=== PATIENT | female | born 1950 | race Caucasian/White ===

== ENCOUNTER 2018-06-01 07:51 | Emergency (ER) | payer OTHER ==
[2018-06-01] MEDS ORDERED: LEVALBUTEROL 1.25 MG/3 ML NEB ONE (08:35)
[2018-06-01] MEDS ORDERED: IPRATROPIUM BROM 0.5MG/2.5ML ONE (08:35)
[2018-06-01] MEDS ORDERED: METHYLPREDNISOLONE 125 MG INJ ONE (08:35)
--- NOTE | 2018-06-01 09:30 | RAD REPORT ---
EXAM DESCRIPTION: RAD - Chest Pa And Lat (2 Views) - 06/01/2018 9:10 am CLINICAL HISTORY: Cough and congestion COMPARISON: July 2010 TECHNIQUE: PA and lateral views of the chest were obtained. FINDINGS: The lungs are clear of a focal infiltrate, mass or failure finding. Interstitial markings are prominent and increased from 2011. Interval changes mild. This is probably a progressive fibrosis rather than a superimposed interstitial edema or infiltrate. Heart size is normal and central vasculature is within normal limits. No pleural effusion or pneumot horax seen. No acute bony finding noted. No aortic abnormality. IMPRESSION: No focal mass, consolidation or failure. Prominent interstitial pattern increased slightly from comparison. Progression since 2010 is favored to be progression in fibrosis rather than interstitial edema or infiltrate.
--- NOTE | 2018-06-01 09:43 | ER ---
Nurse's Notes [facility] Name: Porfirio Headley Age: 68 yrs Sex: Female : 1950 Arrival Date: 06/01/2018 Time: 07:56 Bed 19 Private MD: Tanner Gonzalez V Diagnosis: Acute sinusitis;Acute upper respiratory infection, unspecified Presentation: 06/01 08:16 Presenting complaint: Patient states: was diagnosed with a sinus infection on Sunday by iw Dr. Gonzalez, was started on Levaquin, has not been getting any better, now has cough, sneezing, nausea, right ear pain, headache. Transition of care: patient was not received from another setting of care. Onset of symptoms was May 27, 2018. Risk Assessment: Do you want to hurt yourself or someone else? Patient reports no desire to harm self or others. Initial Sepsis Screen: Does the patient meet any 2 criteria? No. Patient's initial sepsis screen is negative. Does the patient have a suspected source of infection? No. Patient's initial sepsis screen is negative. Care prior to arrival: None. 08:16 Method Of Arrival: Ambulatory 08:16 Acuity: NATA 3 iw Historical: - Allergies: 08:19 Cleocin; iw 08:19 Codeine; iw 08:19 PENICILLINS; iw - PMHx: 08:19 Fibromyalgia; Hypothyroidism; lymes disease; iw - PSHx: 08:19 Appendectomy; rhinoplasty; partial hysterectomy; left shoulder; Carpal Tunnel Repair; iw diskectomy; right shoulder; Ear Tubes; - Ebola Screening: : Patient negative for fever greater than or equal to 101.5 degrees Fahrenheit, and additional compatible Ebola Virus Disease symptoms Patient denies exposure to infectious person Patient denies travel to an Ebola-affected area in the 21 days before illness onset No symptoms or risks identified at this time. Screenin:38 Abuse screen: Denies threats or abuse. Nutritional screening: No deficits noted. la1 Tuberculosis screening: No symptoms or risk factors identified. Fall Risk None identified. Assessment: 08:38 General: Appears in no apparent distress. Behavior is calm, cooperative. Pain: Denies la1 pain. Neuro: Level of Consciousness is awake, alert, obeys commands, Oriented to person, place, time, situation, Professor Of Physical Education are equal bilaterally. Cardiovascular: Capillary refill < 3 seconds Patient's skin is warm and dry. Respiratory: Airway is patent Respiratory effort is even, unlabored, Respiratory pattern is regular, symmetrical, Breath sounds are clear bilaterally. GI: No signs and/or symptoms were reported involving the gastrointestinal system. : No signs and/or symptoms were reported regarding the genitourinary system. 08:38 Respiratory: Reports cough that is productive. la1 09:59 Reassessment: Patient appears in no apparent distress at this time. No changes from la1 previously documented assessment. Patient and/or family updated on plan of care and expected duration. Pain level reassessed. Patient is alert, oriented x 3, equal unlabored respirations, skin warm/dry/pink. Vital Signs: 08:19 BP 178 / 79; Pulse 83; Resp 16; Temp 98.1(TE); Pulse Ox 98% on R/A; Weight 88 kg; iw Height 5 ft. 6 in. (167.64 cm); Pain 7/10; 09:59 BP 156 / 74; Pulse 81; Resp 16; Temp 97.3; Pulse Ox 98% on R/A; la1 08:19 Body Mass Index 31.31 (88.00 kg, 167.64 cm) iw ED Course: 07:56 Patient arrived in ED. mr 07:56 Tanner Gonzalez MD is Private Physician. mr 08:06 French Gonzalez, MICKIE is Primary Nurse. la1 08:07 Charissa Bravo FNP-C [facility]. kb 08:07 Chaka Al MD is Attending Physician. kb 08:18 Triage completed. iw 08:19 Arm band placed on. iw 08:38 Bed in low position. Call light in reach. Side rails up X 1. la1 09:10 Chest Pa And Lat (2 Views) XRAY In Process Unspecified. EDMS 09:42 Tanner Gonzalez MD is Referral Physician. kb 10:00 No provider procedures requiring assistance completed. Patient did not have IV access la1 during this emergency room visit. Administered Medications: 08:38 Drug: Xopenex (3) 1.25 mg Route: Inhalation; la1 09:36 Follow up: Response: No adverse reaction la1 08:38 Drug: AtroVENT Aerosol 0.5 mg Route: Inhalation; la1 09:36 Follow up: Response: No adverse reaction la1 08:38 Drug: SOLU-Medrol 125 mg Route: IM; Site: right gluteus; la1 09:36 Follow up: Response: No adverse reaction la1 Outcome: 09:42 Discharge ordered by MD. [place] 10:00 Discharged to home ambulatory. la1 10:00 Condition: stable 10:00 Discharge instructions given to patient, Instructed on discharge instructions, follow up and referral plans. medication usage, Demonstrated understanding of instructions, follow-up care, medications. 10:00 Patient left the ED. la1 Signatures: Dispatcher [employer] EDMS Charissa Bravo, CALL CENTER SUPPORT REPRESENTATIVE-C CALL CENTER SUPPORT REPRESENTATIVE-Chandrika Valencia Irene, RN RN French David RN RN la1
--- NOTE | 2018-06-01 09:43 | EDPHYS ---
Physician Documentation [facility] Name: Porfirio Headley Age: 68 yrs Sex: Female : 1950 Arrival Date: 06/01/2018 Time: 07:56 Bed 19 Private MD: Tanner Gonzalez V ED Physician Chaka Al HPI: 06/01 08:23 This 68 yrs old Female presents to ER via Ambulatory with complaints of Sinus kb Congestion. 08:23 The patient or guardian reports cough, that is intermittent, described as moderate, kb with no sputum. Onset: The symptoms/episode began/occurred 6 day(s) ago. Severity of symptoms: At their worst the symptoms were moderate, in the emergency department the symptoms are unchanged. Modifying factors: The symptoms are alleviated by nothing, the symptoms are aggravated by nothing. Associated signs and symptoms: Pertinent positives: nausea, sinus headache, drainage from right ear. The patient has experienced similar episodes in the past, a few times. The patient has been recently seen by a physician: the patient's primary care provider, Dr. Gonzalez in the office, 6 day(s) ago, with similar presenting complaints, and apparently given a diagnosis of sinus infection, was given a prescription for antibiotics. Historical: - Allergies: 08:19 Cleocin; iw 08:19 Codeine; iw 08:19 PENICILLINS; iw - PMHx: 08:19 Fibromyalgia; Hypothyroidism; lymes disease; iw - PSHx: 08:19 Appendectomy; rhinoplasty; partial hysterectomy; left shoulder; Carpal Tunnel Repair; iw diskectomy; right shoulder; Ear Tubes; - Ebola Screening: : Patient negative for fever greater than or equal to 101.5 degrees Fahrenheit, and additional compatible Ebola Virus Disease symptoms Patient denies exposure to infectious person Patient denies travel to an Ebola-affected area in the 21 days before illness onset No symptoms or risks identified at this time. ROS: 08:24 Cardiovascular: Negative for chest pain, palpitations, and edema, Abdomen/GI: Negative kb for abdominal pain, vomiting, diarrhea, and constipation. +nausea Back: Negative for injury and pain, MS/Extremity: Negative for injury and deformity, Skin: Negative for injury, rash, and discoloration. 08:24 Constitutional: Positive for malaise. 08:24 ENT: Positive for drainage from ear(s), ear pain, sinus congestion, sinus pain. 08:24 Respiratory: Positive for cough, Negative for dyspnea on exertion, hemoptysis, orthopnea, pleurisy, shortness of breath, sputum production, wheezing. 08:24 Neuro: Positive for headache. Exam: 08:26 Constitutional: This is a well developed, well nourished patient who is awake, alert, kb and in no acute distress. Head/Face: Normocephalic, atraumatic. ENT: Nares patent. No nasal discharge, no septal abnormalities noted. Oropharynx with no redness, swelling, or masses, exudates, or evidence of obstruction, uvula midline. Mucous membranes moist. Neck: Trachea midline, no thyromegaly or masses palpated, and no cervical lymphadenopathy. Supple, full range of motion without nuchal rigidity, or vertebral point tenderness. No Meningismus. Chest/axilla: Normal chest wall appearance and motion. Nontender with no deformity. No lesions are appreciated. Cardiovascular: Regular rate and rhythm with a normal S1 and S2. No gallops, murmurs, or rubs. Normal PMI, no JVD. No pulse deficits. Respiratory: Lungs have equal breath sounds bilaterally, clear to auscultation and percussion. No rales, rhonchi or wheezes noted. No increased work of breathing, no retractions or nasal flaring. Abdomen/GI: Soft, non-tender, with normal bowel sounds. No distension or tympany. No guarding or rebound. No evidence of tenderness throughout. Skin: Warm, dry with normal turgor. Normal color with no rashes, no lesions, and no evidence of cellulitis. MS/ Extremity: Pulses equal, no cyanosis. Neurovascular intact. Full, normal range of motion. Neuro: Awake and alert, GCS 15, oriented to person, place, time, and situation. Cranial nerves II-XII grossly intact. Motor strength 5/5 in all extremities. Sensory grossly intact. Cerebellar exam normal. Normal gait. 08:26 ENT: TM's: PE tubes visualized. PE tubes patent, intact, draining in ear canal Vital Signs: 08:19 BP 178 / 79; Pulse 83; Resp 16; Temp 98.1(TE); Pulse Ox 98% on R/A; Weight 88 kg; iw Height 5 ft. 6 in. (167.64 cm); Pain 7/10; 09:59 BP 156 / 74; Pulse 81; Resp 16; Temp 97.3; Pulse Ox 98% on R/A; la1 08:19 Body Mass Index 31.31 (88.00 kg, 167.64 cm) iw MDM: 08:07 Patient medically screened. kb 08:25 Data reviewed: vital signs, nurses notes. Data interpreted: Pulse oximetry: on room air kb is 98 %. Interpretation: normal. 09:32 Counseling: I had a detailed discussion with the patient and/or guardian regarding: the kb historical points, exam findings, and any diagnostic results supporting the discharge/admit diagnosis, lab results, radiology results, the need for outpatient follow up, a family practitioner, to return to the emergency department if symptoms worsen or persist or if there are any questions or concerns that arise at home. 06/01 08:20 Order name: Flu; Complete Time: 09:16 kb 06/01 08:20 Order name: Strep; Complete Time: 09:16 kb 06/01 08:20 Order name: Chest Pa And Lat (2 Views) XRAY; Complete Time: 09:31 kb 06/01 09:08 Order name: Throat Culture EDMS Administered Medications: 08:38 Drug: Xopenex (3) 1.25 mg Route: Inhalation; la1 09:36 Follow up: Response: No adverse reaction la1 08:38 Drug: AtroVENT Aerosol 0.5 mg Route: Inhalation; la1 09:36 Follow up: Response: No adverse reaction la1 08:38 Drug: SOLU-Medrol 125 mg Route: IM; Site: right gluteus; la1 09:36 Follow up: Response: No adverse reaction la1 Disposition: 12:27 Co-signature as Attending Physician, Chaka Al MD I agree with the assessment and kdr plan of care. Disposition: 06/01/18 09:42 Discharged to Home. Impression: Acute sinusitis, Acute upper respiratory infection, unspecified. - Condition is Stable. - Discharge Instructions: Sinusitis, Adult, [id number], Upper Respiratory Infection, Adult, [id number]. - Prescriptions for Albuterol Sulfate 90 mcg/actuation - inhale 1-2 puff by INHALATION route every 4-6 hours; 1 Inhaler. - Medication Reconciliation Form, Thank You Letter, Antibiotic Education, Prescription Opioid Use form. - Follow up: Emergency Department; When: As needed; Reason: Worsening of condition. Follow up: Tanner Gonzalez; When: 2 - 3 days; Reason: Recheck today's complaints, Continuance of care, Re-evaluation by your physician. - Notes: Take an antihistamine (zyrtec, claritin or sasha) and Flonase daily Continue antibiotics as prescribed Follow up with Dr Gonzalez next week for persistent symtpoms Signatures: Dispatcher [employer] EDMS Charissa Bravo, ERLIN KRUGER-Chaka Marin MD MD kdr Kalina Arthur RN RN iw French Gonzalez RN RN la1 Corrections: (The following items were deleted from the chart) 10:00 09:42 06/01/2018 09:42 Discharged to Home. Impression: Acute sinusitis; Acute upper la1 respiratory infection, unspecified. Condition is Stable. Discharge Instructions: Sinusitis, Adult, [id number]. Prescriptions for Albuterol Sulfate 90 mcg/actuation - inhale 1-2 puff by INHALATION route every 4-6 hours; 1 Inhaler. and Forms are Medication Reconciliation Form, Thank You Letter, Antibiotic Education, Prescription Opioid Use. Follow up: Emergency Department; When: As needed; Reason: Worsening of condition. Follow up: Tanner Gonzalez; When: 2 - 3 days; Reason: Recheck today's complaints, Continuance of care, Re-evaluation by your physician. kb
== END 2018-06-01 10:00 | disposition home or self-care (01) ==
LOC: ER 07:51
DX: J06.9 Acute upper respiratory infection, unspecified (principal); J01.90 Acute sinusitis, unspecified
CPT/HCPCS: 71046; 87070; 87081; 87804 ×2; 96372; 99284; J2930

== ENCOUNTER 2018-09-06 03:15 | Emergency (ER) | payer OTHER ==
--- OUTSIDE RECORDS SUMMARY | 2018-09-06 03:18 | XMS REPORT | Summary of Care ---
:1950 Author Organization [facility] Encounter HQ Vipinr_andree(FIN) [id number] Date(s): 09/12/16 - 09/12/16 [facility] [address] [place] [address], [address] [phone] Discharge Disposition: Home or Self Care Attending Physician: Delisa Burnham MD Vital Signs No data available for this section Problem List No data available for this section Allergies, Adverse Reactions, Alerts Substance Reaction Severity Status codeine Active penicillin Active Medications No data available for this section Results No data available for this section Immunizations No data available for this section Procedures No data available for this section Social History No data available for this section Assessment and Plan No data available for this section
--- OUTSIDE RECORDS SUMMARY | 2018-09-06 03:18 | XMS REPORT | Continuity of Care Document ---
:1950 Author Organization Interface Problems Problem Status Onset Classification Date Comments Source Date Reported FIBROMIACIA//BACK Active 11/16/19 SMR PAIN 18 [facility] [place] UNK Active 10/24/[address] Chronic back pain Active Problem 01/19/2018 SMR greater than 3 [place] months duration [facility],Mische r Neuro, OPID [place],[facility] SOB on Active Problem 01/19/2018 [facility] exertion(<span [place] ID="[id number]" [facility] >Confirmed</span> Iraheta,Mische ) r Neuro, OPID [place], [place] GERD (<span Active Problem 01/19/2018 [facility] ID="[id number]" [place] >Confirmed</span> [facility] ) [place]heta,Mische r Neuro, OPID [facility] H/O basal cell Active Problem 01/19/2018 [facility] carcinoma [place] excision [facility],Mische r Neuro, OPID [facility] Hypothyroidism Active Problem 01/19/2018 [facility],Mische r Neuro, OPID [facility] Lyme disease Resolved Problem 01/19/2018 [facility],Mische r Neuro, OPID [facility] Anxiety and Active Problem 01/19/2018 [facility] depression [facility],Mische r Neuro, OPID [facility] Obesity Active Problem 01/19/2018 [facility],Mische r Neuro,[facility] SPONDYLOSIS W/O Active MYELOPATHY OR [place] RADICULOPA RADICULOPATHY, Active LUMBAR REGION [facility] Medications Medication Details Route Status Patient Ordering Order Source Instructions Provider Date Senokot 2 tab, Route: No Longer PO, Dosing Active 2016 Weight 85.455, kg, Daily, Start date: 11/23/16 9:00:00 CDT, Duration: 30 day, Stop date: 12/22/16 9:00:00 CDT heparin sodium, 5,000 unit, No Longer porcine 2500 Route: SUB-Q, Active 2016 [facility] UNT/ML Drug form: INJ, Injectable Q12H, Dosing Solution Weight 85.455, kg, Start date: 11/23/16 8:00:00 CDT, Duration: 30 day, Stop date: 12/22/16 21:00:00 CDT Famotidine 20 MG 20 mg, 1 tab, Inactive Oral Tablet Route: PO, Drug 2016 [facility] [Pepcid] form: TAB, Q12H, Dosing Weight 85.455, kg, Start date: 11/22/16 21:00:00 CDT, Duration: 30 day, Stop date: 12/22/16 9:00:00 CDT Docusate Sodium 100 mg, 1 cap, Inactive 100 MG Oral Route: PO, BID, 2016 [facility] Capsule [Colace] Dosing Weight 85.455, kg, Start date: 11/22/16 17:00:00 CDT, Duration: 30 day, Stop date: 12/22/16 9:00:00 CDT Oxycodone 10 mg, Route: Inactive Hydrochloride 5 PO, Drug form: 2016 [place] MG Oral Tablet TAB, ONCE, Dosing Weight 85.455, kg, PRN Pain Score 4-6, Start date: 11/22/16 16:21:00 CDT Flumazenil 0.2 mg, Route: Inactive IVP, PRN, Dosing 2016 [facility] Weight 85.455, kg, PRN Benzodiazepine Reversal, Initial dose, Start date: 11/22/16 15:34:00 CDT, Duration: 30 day, Stop date: 12/22/16 15:33:00 CDT Naloxone 0.4 mg, Route: Inactive IVP, Q2MIN, 2016 [facility] Dosing Weight 85.455, kg, PRN Narcotic Reversal, Start date: 11/22/16 15:34:00 CDT, Duration: 8 doses or times, Stop date: Limited # of times Morphine 2 mg, Route: Inactive IVP, Q5Min, 2016 [facility] Dosing Weight 85.455, kg, PRN Pain Score 4-6, Start date: 11/22/16 15:34:00 CDT, Duration: 5 doses or times, Stop date: Limited # of times Hydromorphone 0.5 mg, Route: Inactive IVP, Q5Min, 2016 [facility] Dosing Weight 85.455, kg, PRN Pain Score 7-10, Start date: 11/22/16 15:34:00 CDT, Duration: 4 doses or times, Stop date: Limited # of times Hydralazine 10 mg, Route: Inactive IVP, Q20Min, 2016 [facility] Dosing Weight 85.455, kg, PRN Elevated BP, Start date: 11/22/16 15:34:00 CDT, Duration: 2 doses or times, Stop date: Limited # of times Labetalol 10 mg, Route: Inactive IVP, Q5Min, 2016 [facility] Dosing Weight 85.455, kg, PRN Elevated BP, Start date: 11/22/16 15:34:00 CDT, Duration: 5 doses or times, Stop date: Limited # of times Ondansetron 4 mg, Route: Inactive IVP, ONCE, 2016 [facility] Dosing Weight 85.455, kg, PRN Nausea & Vomiting, Start date: 11/22/16 15:34:00 CDT neostigmine Route: IV, Drug Inactive (ANES) form: INJ, ONCE, 2016 [facility] Stop date: 11/22/16 14:25:00 CDT glycopyrrolate Route: IV, Drug Inactive (ANES) form: INJ, ONCE, 2016 [facility] Stop date: 11/22/16 14:25:00 CDT metoprolol Route: IV, Drug Inactive (ANES) form: INJ, ONCE, 2016 [facility] Stop date: 11/22/16 14:25:00 CDT Acetaminophen 1 tab, PO, Q4H, Active 325 MG / PRN Pain, # [address] [facility] Hydrocodone tab, 0 Bitartrate 5 MG Refill(s), given Oral Tablet to patient Zofran 4 mg, Route: IV, Inactive Drug form: INJ, 2016 [facility] Q8H, Dosing Weight 85.455, kg, PRN Nausea, Start date: 11/22/16 14:14:00 CDT, Duration: 30 day, Stop date: 12/22/16 14:13:00 CDT magnesium 300 ml, Route: Inactive citrate PO, Drug Form: 2016 [facility] LIQ, Dosing Weight 85.455, kg, ONCE, PRN Constipation, Start date: 11/22/16 14:14:00 CDT Tylenol 650 mg, Route: Inactive PO, Drug form: 2016 [facility] TAB, Q4H, Dosing Weight 85.455, kg, PRN Pain, Start date: 11/22/16 14:14:00 CDT, Duration: 30 day, Stop date: 12/22/16 14:13:00 CDT Dilaudid 0.5 mg, Route: Inactive IV, Q3H, Dosing 2016 [facility] Weight 85.455, kg, PRN Pain, Start date: 11/22/16 14:14:00 CDT, Duration: 30 day, Stop date: 12/22/16 14:13:00 CDT Acetaminophen 1 tab, Route: Inactive 325 MG / PO, Drug Form: 2016 [facility] Hydrocodone TAB, Dosing Bitartrate 5 MG Weight 85.455, Oral Tablet kg, Q4H, PRN Pain, Start date: 11/22/16 14:14:00 CDT, Duration: 30 day, Stop date: 12/22/16 14:13:00 CDT Sodium Chloride 1,000 mL, Rate: Inactive 0.154 MEQ/ML 75 ml/hr, Infuse 2016 [facility] Injectable over: 13.3 hr, Solution Route: IV, Dosing Weight 85.455 kg, Total Volume: 1,000, Start date: 11/22/16 14:14:00 CDT, Duration: 30 day, Stop date: 12/22/16 14:13:00 CDT dexamethasone Route: IV, Drug Inactive (ANES) form: INJ, ONCE, 2016 [facility] Stop date: 11/22/16 13:28:00 CDT famotidine Route: IV, Drug Inactive (ANES) form: INJ, ONCE, 2016 [facility] Stop date: 11/22/16 13:23:00 CDT fentaNYL (ANES) Route: IV, Drug Inactive MH form: INJ, ONCE, 2016 [facility] Stop date: 11/22/16 13:23:00 CDT ondansetron Route: IV, Drug Inactive MH (ANES) form: INJ, ONCE, 2016 [facility] Stop date: 11/22/16 13:23:00 CDT ePHEDrine (ANES) Route: IV, Drug Inactive 11/22/ MH form: INJ, ONCE, 2016 Stop date: 11/22/16 13:08:00 CDT fentaNYL (ANES) Route: IV, Drug Inactive 11/22/ MH form: INJ, ONCE, 2016 Stop date: 11/22/16 12:48:00 CDT propofol (ANES) Route: IV, Drug Inactive 11/22/ MH form: INJ, ONCE, 2016 Stop date: 11/22/16 12:48:00 CDT rocuronium Route: IV, Drug Inactive 11/22/ MH (ANES) form: INJ, ONCE, 2016 Stop date: 11/22/16 12:48:00 CDT midazolam (ANES) Route: IV, Drug Inactive MH form: SOLN, 2016, Stop date: 11/22/16 12:48:00 CDT lidocaine (ANES) Route: IV, Drug Inactive MH form: INJ, ONCE2016 [facility] Stop date: 11/22/16 12:48:00 CDT acetaminophen Route: IV, Drug Inactive MH (ANES) (ANES) form: INJ, Start 2016 date: 11/22/16 12:19:00 CDT, Stop date: 11/22/16 13:19:00 CDT vancomycin Route: IV, Drug Inactive MH (ANES) (ANES) form: INJ, Start 2016 date: 11/22/16 12:09:00 CDT, Stop date: 11/22/16 13:09:00 CDT LR 1000 mL INJ Route: IV, Total Inactive MH (ANES) Volume: 1,000, 2016 [facility] Start date: 11/22/16 11:46:00 CDT, Stop date: 11/22/16 12:46:00 CDT Calcium Chloride 1,000 mL, Rate: Inactive MH 0.0014 MEQ/ML / 25 ml/hr, Infuse 2016 [facility] Potassium over: 40 hr, Chloride 0.004 Route: IV, MEQ/ML / Sodium Dosing Weight Chloride 0.103 85.455 kg, Total MEQ/ML / Sodium Volume: 1,000, Lactate 0.028 Start date: MEQ/ML 11/22/16 Injectable 11:46:00 CDT, Solution Duration: 30 day, Stop date: 12/22/16 11:45:00 CDT promethazine Route: IV, Drug Inactive (ANES) (ANES) form: INJ, Start 2016 date: 11/22/16 11:45:00 CDT, Stop date: 11/22/16 12:45:00 CDT buPROPion 300 300 mg=1 tab, Active mg/24 hours (XL) PO, Daily, # [address] [facility] oral tablet, tab, 0 Refill(s) extended release duloxetine 30 MG 30 mg=1 cap, PO, Active Enteric Coated Bedtime, # [address] [facility] Capsule cap, 0 Refill(s) [Cymbalta] duloxetine 60 MG 60 mg=1 cap, PO, Active MH Enteric Coated Daily, In 2016 [facility] Capsule morning, # 30 [Cymbalta] cap, 0 Refill(s) estropipate 1.5 1.5 mg=1 tab, Active mg oral tablet PO, Daily, # 30 2016 tab, 0 Refill(s) Levothyroxine 137 microgram=1 Active Sodium 0.137 MG tab, PO, Daily, 2016 [facility] Oral Tablet # 30 tab, 0 [Synthroid] Refill(s) zaleplon 10 mg 10 mg=1 cap, PO, Active MH oral capsule Bedtime, PRN for 2016 sleep, # 30 cap, 0 Refill(s) Promethazine 25 mg=1 tab, PO, Active Hydrochloride 25 Q6H, PRN 2016 [facility] MG Oral Tablet Nausea/Vomiting, # 12 tab, 0 Refill(s) lubiprostone 24 microgram=1 Active MH 0.024 MG Oral cap, PO, BID, # 2016 Capsule 60 cap, 0 [Amitiza] Refill(s) baclofen 10 mg 10 mg=1 tab, PO, Active MH oral tablet TID, # 270 tab, 2017 [facility] 0 Refill(s) gabapentin 400 400 mg=1 cap, Active 11/15/ MH MG Oral Capsule PO, TID, [address] [facility] Refill(s) Morphine 30 mg, 0 Active 11/15/ MH Refill(s) 2017 Acetaminophen 1 tab, PO, Active 11/15/ MH 325 MG / 4-6x/Day, PRN, # 2017 Oxycodone 20 tab, 0 Hydrochloride 10 Refill(s) MG Oral Tablet [Percocet 10/325] fentaNYL 25 1 patch, TOP, Active MH mcg/hr Q72H, [address] [facility] transdermal Refill(s) film, extended release Allergies, Adverse Reactions, Alerts Substance Category Reaction Severity Reaction Status Date Comments Source type Reported codeine Assertion Drug Active SMR allergy [facility] penicillin Assertion Propensity Active SMR to adverse [place] reactions [place] to drug [place] Cleocin HCl Assertion Drug Active [facility] allergy [facility] Immunizations Immunization Date Given Site Status Last Updated Comments Source Results Order Results Value Reference Date Interpretation Comments Source Name Range Spine Spine Study: Spine cervical w/wo contrast MRI 12/04 - [facility] cervical cervical /2017 - [place] w/wo w/wo contrast contrast MRI MRI Clinical Indication: M54.12 Radiculopathy, cervical region - M54.12 Radiculopathy, cervical region Read by: Maulik Braswell MD Dictated Date/time: 12/04/17 15:05 Electronically Signed by: Maulik Braswell MD 12/04/17 15:10 FINAL REPORT Comparison: Plain films of the cervical spine from 09/12/2016 TECHNIQUE: Multiplanar, multisequence magnetic resonance imaging of the cervical spine was performed before and after the administration of intravenous gadolinium contrast. FINDINGS: There is normal alignment of the cervical spine. No focal marrow signal abnormality is present. The prevertebral soft tissues, atlanto-dental interspace , and craniocervical junction are within normal li mits. The visualized brainstem region is unremarkable. The cervical spinal cord is normal in size and signal. Postoperative changes of ACDF from C4 through C6 are seen. The remaining discs are desiccated throughout the cervical spine. Mild disc height loss at C3- C4 is present. DISC SPACES: C2-C3: Focal 1 mm central disc protrusion is seen. Mild to moderate facet arthrosis is present, left greater than right. There is no spinal canal stenosis or neural foraminal narrowing. C3-C4: Moderate to large circumferential disc osteophyte complex is seen. Mild to moderate facet arthrosis is noted, right greater than left. There is severe spinal canal stenosis with the thecal sac me asuring 7 mm AP dimension. Severe right and moderate left neural foraminal narrowing is present. C4-C5: Postoperative changes of fusion across the disc space are seen. Facets are intact. There is no spinal canal stenosis or neural foraminal narrowing. C5-C6: Postoperative changes of fusion across the disc space are seen. Moderate size circumferential osteophyte is seen. Facets are intact. There is mild to moderate spinal canal stenosis with thecal sa c measuring 8.5 mm AP dimension. Moderate left neural foraminal narrowing is present. C6-C7: No significant disc bulge or protrusion is seen. The facets are intact. There is no spinal canal stenosis or neural foraminal narrowing. C7-T1: Negative for significant disc bulge or protrusion. Mild facet arthrosis is seen. There is no spinal canal stenosis or neural foraminal narrowing. IMPRESSION: 1. Postoperative changes of multilevel ACDF of C4-C6. 2. Multilevel degenerative changes of the remaining cervical spine with severe spinal canal stenosis and severe right with moderate left neural foraminal narrowing at C3-C4. 3. C5-C6 mild to moderate spinal canal stenosis with moderate left neural foraminal narrowing. SL: [id number] BLOOD ABO/Rh B POS 11/15 BANK [place] RESULTS BLOOD Antibody Negative 11/[address] [facility] RESULTS (11/15/16 2:15 PM) Spine Spine EXAMINATION: Lumbar spine 4 views 09/12 - [facility] lumbar lumbar /2017 - [place] series DX series DX This report was dictated by a Machine Turner/ Fellow. I have personally reviewed the images as Imaging well as the Resident's interpretation and agree with the findings. DATE: 09/12/2016 at 1518 hours Read by: Jorge Crawford MD Resident: Jorge Crawford MD Dictated Date/time: 09/13/16 14:35 Electronically Signed by: French Carlson MD 03/09/17 15:20 FINAL REPORT INDICATION: Lumbago TECHNIQUE: Lateral radiograph of the lumbar spine are obtained in neutral, flexion, and extension with AP radiographs of the lumbar spine.. FINDINGS: 5 nonrib-bearing lumbar vertebrae are identified. There is mild straightening of the normal lumbar lordosis. There is minimal grade 1 anterolisthesis of L3 on L4. No abnormal movement is identified with flexion and extension. Vertebral body heights are maintained. No evidence of fracture seen. Disc spaces appear preserved. There is minimal facet arthrosis at L3-L4, L4 -L5, and L5-S1. SI joints appear normal. IMPRESSION: 1. Minimal grade I anterolisthesis of L3 on L4. No abnormal movement with flexion and extension. 2. Mild facet arthrosis in the lower lumbar spine. Spine Spine EXAM: XR CERVICAL SPINE 4 VIEWS 09/12 - [facility] cervical cervical /2016 - [place] series DX series DX This report was dictated by a Machine Turner/ Fellow. I have personally reviewed the images as Imaging well as the Resident's interpretation and agree with the findings. DATE: 09/12/2016 at 1511 hours Read by: Jorge Crawford MD Resident: Jorge Crawford MD Dictated Date/time: 09/13/16 14:21 Electronically Signed by: French Carlson MD 09/14/16 15:31 FINAL REPORT INDICATION: cervicalgia COMPARISON: None TECHNIQUE: Lateral radiographs of the cervical spine in neutral position, flexion and extension, AP radiographs of the cervical spine. FINDINGS: Changes of ACDF are seen spanning C4-C6. There is minimal lucency about the C4 screws measuring approximately 1 mm. No evidence of hardware failure is seen. There is suggestion of approximately 2 mm of anterolisthesis of C2 on C3 with flexion. Alignment is otherwise normal and maintained throughout flexion and extension. Changes of spondylosis are seen at C2-C3, C3-C4, and C6-C7. Uncovertebral hypertrophy is noted C3-C4 and C6-C7. There is likely diffuse facet arthrosis. No fracture seen. The soft tissues are within normal limits. IMPRESSION: 1. Minimal anterolisthesis of C2 on C3 with flexion. 2. Changes of ACDF spanning C4-C6 without evidence of hardware failure. 3. Spondylosis and facet arthrosis as described above. Vital Signs Vital Sign Value Date Comments Source Systolic (mm Hg) 125 11/22/2016 [facility] Diastolic (mm Hg) 61 11/22/2016 [facility] Systolic (mm Hg) 122 11/22/2016 [facility] Diastolic (mm Hg) 72 11/22/2016 [facility] Respitory Rate 14 11/22/2016 [facility] Systolic (mm Hg) 121 11/22/2016 [facility] Diastolic (mm Hg) 54 11/22/2016 [facility] Respitory Rate 12 11/22/2016 [facility] Respitory Rate 20 11/22/2016 [facility] Temperature Oral (F) 98.3 F 11/22/2016 [facility] BMI Calculated 30.41 11/15/2016 [facility] Weight 85.455 11/15/2016 [facility] Height 167.64 cm 11/15/2016 [facility] Heart Rate 71 11/15/2016 [facility] Temperature Oral (F) 98.0 F 11/15/2016 [facility] Encounters Location Location Encounter Encounter Reason Attending ADM DC Status Source Details Type Number For Provider Date Date Visit [facility] Outpt Diag [id number] Delisa 09/12 09/13 [facility] Outpatient Services Chacha /2016 [facility] [id number] MERT 10/[address] [facility] Outpatient [id number] BROOK 11/[address] [facility] Surgery [id number] Spencer 11/22 11/22 [facility] /2016 [facility] Outpatient [id number] ARTESIA 12/08 [facility] Outpatient [id number] ARTESIA 01/05 [facility] [place] Outpatient [id number] ARTESIA 02/16 [facility] MNA Spine Phone [id number] 06/12 06/14 [facility] Message /2016 Neuro [facility] OP Therapy [id number] Restorationist 11/15 12/15 S[facility] [place] Patients [facility] /2017 [facility] MNA Phone [id number] 11/30 12/02 [facility] Neurosurger Message /2017 [facility] [place] [facility] Outpt Diag [id number] Restorationist 12/04 12/05 [facility] Outpatient Services Peccora /2017 [facility] MNA Phone [id number] 12/12 12[facility]14 [facility] [place] SMR OP Therapy [id number] Restorationist 12/18 01/17 [facility] Patients [facility] /2017 [facility] [place] Outpatient [id number] MICHELLE 12/20 [facility] Outpatient [id number] Michelle 12/20 12/21 [facility] Neurosurger Davis /2017 [facility] [place] Procedures Procedure Code Date Perfomer Comments Source Appendectomy [id number] [facility] Carpal tunnel [id number] MH SMR decompression [facility] Discectomy 1854351 MH SMR [facility] Hysterectomy [id number] SMR [facility] Lumpectomy of [id number] MH SMR breast [facility] Myringotomy [id number] SMR [facility] Rhinoplasty [id number] SMR [facility] Rotator cuff repair [id number] [facility] Appendectomy [id number] [facility] Carpal tunnel [id number] [facility] decompression Discectomy 0641166 [facility] Hysterectomy [id number] [facility] Lumpectomy of [id number] [facility] Neuro breast Myringotomy 256440413 [facility] Rhinoplasty [id number] [facility] Rotator cuff repair [id number] [facility] Neuro Appendectomy [id number] [facility] [place] Carpal tunnel [id number] [facility] decompression [place] Discectomy [id number] [facility] [place] Hysterectomy [id number] OP[facility] [place] Lumpectomy of [id number] [facility] breast [place] Myringotomy [id number] [facility] [place] Rhinoplasty [id number] [facility] [place] Rotator cuff repair [id number] [facility] [place] Appendectomy [id number] [place] Carpal tunnel [id number] [place] decompression Discectomy 2158044 [facility] [place] Hysterectomy [id number] [place] Lumpectomy of [id number] [place] breast Myringotomy [id number] [place] Rhinoplasty [id number] [place] Rotator cuff repair [id number] [place]
--- OUTSIDE RECORDS SUMMARY | 2018-09-06 03:19 | XMS REPORT | Summary of Care ---
:1950 Author Organization [facility] Address Unavailable , Encounter DAISY Cardenas(CLARIBEL) [id number] Date(s): 11/15/17 - 12/14/17 [facility] Discharge Disposition: Home or Self Care Attending Physician: Kenny Graham MD Vital Signs No data available for this section Problem List Condition Effective Dates Status Health Status Informant Chronic back pain greater than 3 Active months duration(Confirmed) SOB (shortness of breath) on Active exertion(Confirmed) GERD (gastroesophageal reflux Active disease)(Confirmed) H/O basal cell carcinoma Active excision(Confirmed) Hypothyroidism(Confirmed) Active Lyme disease(Confirmed) Resolved Anxiety and depression(Confirmed) Active Obesity(Confirmed) Active Allergies, Adverse Reactions, Alerts Substance Reaction Severity Status codeine Active penicillin Active Cleocin HCl Active Medications No data available for this section Results No data available for this section Immunizations No data available for this section Procedures Procedure Date Related Diagnosis Body Site Status Appendectomy Completed Carpal tunnel decompression Completed Discectomy Completed Hysterectomy Completed Lumpectomy of breast Completed Myringotomy Completed Rhinoplasty Completed Rotator cuff repair Completed Social History Social History Type Response Substance Abuse Use: None. Alcohol Never, Previous treatment: None. Smoking Status Never smoker; Exposure to Tobacco Smoke Unable to obtain; Cigarette Smoking Last 365 Days No; Reg Smoking Cessation Counseling No entered on: 02/16/17 Assessment and Plan No data available for this section
--- OUTSIDE RECORDS SUMMARY | 2018-09-06 03:19 | XMS REPORT | Summary of Care ---
:1950 Author Organization [facility] Spine [facility] Address [address] [place] [address] [address] [place] [address]- Encounter HQ Beba_andree(FIN) [id number] Date(s): 06/12/17 - 06/13/17 [facility] Spine [address] [place], [place] [address] [phone] Vital Signs No data available for this [...] Procedures Procedure Date Related Diagnosis Body Site Appendectomy Carpal tunnel decompression Discectomy Hysterectomy Lumpectomy of breast Myringotomy Rhinoplasty Rotator cuff repair Social History Social History Type Response Substance Abuse Use: None. Alcohol Never, Previous treatment: None. Smoking Status Never smoker; Exposure to Tobacco Smoke Unable to obtain; Cigarette Smoking Last 365 Days No; Reg Smoking Cessation Counseling No Assessment and Plan No data available for this section
--- OUTSIDE RECORDS SUMMARY | 2018-09-06 03:19 | XMS REPORT | Summary of Care ---
:1950 Author Organization [facility] Neurosurgery [facility] Address [address], [address] [place] [address]- Encounter HQ Encntr_alitorito(FIN) [id number] Date(s): 12/20/17 - 12/20/17 [facility] [address] [facility], [address] [place], [place] [address] [phone] Discharge Disposition: Home or Self Care Attending Physician: Michelle Davis RUG CUTTER HELPER Vital Signs No data available for this [...]
--- OUTSIDE RECORDS SUMMARY | 2018-09-06 03:19 | XMS REPORT | Summary of Care ---
:1950 Author Organization [facility] Neurosurgery [facility] Address [address], [address] [place] [address]- Encounter HQ Encntr_alias(FIN) [id number] Date(s): 12/12/17 - 12/13/17 [facility] [address] [address] [place], [place] [address] [phone] Vital Signs No data available for this [...]
--- OUTSIDE RECORDS SUMMARY | 2018-09-06 03:19 | XMS REPORT | Summary of Care ---
:1950 Author Organization [facility] Address Unavailable , Encounter DAISY Cardenas(CLARIBEL) [id number] Date(s): 12/18/17 - 01/16/18 [facility] Discharge Disposition: Home or Self Care [...] Reg Smoking Cessation Counseling No entered on: 12/26/17 Assessment and Plan No data available for this section
--- OUTSIDE RECORDS SUMMARY | 2018-09-06 03:19 | XMS REPORT | Summary of Care ---
:1950 Author Organization [facility] Address [address] [place], [place] [address]- Encounter HQ Beba_andree(FIN) [id number] Date(s): 11/22/16 - 11/22/16 [facility] [address] [place] [address]- Discharge Disposition: Home or Self Care Attending Physician: Shayne Duggan MD Referring Physician: Shayne Duggan MD Vital Signs Most recent to oldest 1 2 3 [Reference Range]: Height 167.64 cm (11/15/16 1:43 PM) Temperature Oral [96.4-99.1 98.3 DegF 98.0 DegF DegF] (11/22/16 9:30 AM) (11/15/16 1:43 PM) Blood Pressure [90-140/60-90 125/61 mmHg 122/72 mmHg 121/54 mmHg mmHg] (11/22/16 4:30 PM) (11/22/16 4:00 PM) (11/22/16 3:30 PM) Respiratory Rate [14-20 BRMIN] 14 BRMIN 12 BRMIN 20 BRMIN (11/22/16 3:30 PM) *LOW* (11/22/16 3:00 PM) (11/22/16 3:15 PM) Peripheral Pulse Rate [60-100 71 bpm bpm] (11/15/16 1:43 PM) Weight 85.455 kg (11/15/16 1:43 PM) Body Mass Index 30.41 m2 (11/15/16 1:43 PM) Problem List Condition Effective Dates Status Health Status Informant Chronic back pain greater than 3 Active months duration(Confirmed) SOB (shortness of breath) on Active exertion(Confirmed) GERD (gastroesophageal reflux Active disease)(Confirmed) H/O basal cell carcinoma Active excision(Confirmed) Hypothyroidism(Confirmed) Active Lyme disease(Confirmed) Resolved Anxiety and depression(Confirmed) Active Allergies, Adverse Reactions, Alerts Substance Reaction Severity Status Cleocin HCl Active codeine Active penicillin Active Medications acetaminophen (ANES) (ANES) Route: IV, Drug form: INJ, Start date: 11/22/16 12:19:00 CDT, Stop date: 13:19:00 CDT Start Date: 11/22/16 Stop Date: 11/22/16 Status: Completedacetaminophen-hydrocodone 325 mg-5 mg oral tablet 1 tab, PO, Q4H, PRN Pain, # 60 tab, 0 Refill(s), given to patient Start Date: 11/22/16 Stop Date: 12/08/16 Status: Orderedacetaminophen-hydrocodone 325 mg-5 mg oral tablet 1 tab, Route: PO, Drug Form: TAB, Dosing Weight 85.455, kg, Q4H, PRN Pain, Start date: 11/22/16 14:14:00 CDT, Duration: 30 day, Stop date: 12/22/16 14:13: 00 CDT Start Date: 11/22/16 Stop Date: 11/22/16 Status: Discontinuedacetaminophen-hydrocodone 325 mg-5 mg oral tablet 1 tab, Route: PO, Drug Form: TAB, Dosing Weight 85.455, kg, Q4H, PRN Pain, Start date: 11/22/16 14:14:00 CDT, Duration: 30 day, Stop date: 12/22/16 14:13: 00 CDT Start Date: 11/22/16 Stop Date: 11/22/16 Status: DiscontinuedAmitiza 24 mcg oral capsule 24 microgram=1 cap, PO, BID, # 60 cap, 0 Refill(s) Start Date: 11/15/16 Status: OrderedANES flumazenil 0.2 mg, Route: IVP, PRN, Dosing Weight 85.455, kg, PRN Benzodiazepine Reversal, Initial dose, Start date: 11/22/16 15:34:00 CDT, Duration: 30 day, Stop date: 15:33:00 CDT Start Date: 11/22/16 Stop Date: 11/22/16 Status: DiscontinuedANES hydrALAZINE 10 mg, Route: IVP, Q20Min, Dosing Weight 85.455, kg, PRN Elevated BP, Start date : 11/22/16 15:34:00 CDT, Duration: 2 doses or times, Stop date: Limited # of times Start Date: 11/22/16 Stop Date: 11/22/16 Status: DiscontinuedANES HYDROmorphone 0.5 mg, Route: IVP, Q5Min, Dosing Weight 85.455, kg, PRN Pain Score 7-10, Start date: 11/22/16 15:34:00 CDT, Duration: 4 doses or times, Stop date: Limited # of times Start Date: 11/22/16 Stop Date: 11/22/16 Status: DiscontinuedANES labetalol 10 mg, Route: IVP, Q5Min, Dosing Weight 85.455, kg, PRN Elevated BP, Start date : 11/22/16 15:34:00 CDT, Duration: 5 doses or times, Stop date: Limited # of times Start Date: 11/22/16 Stop Date: 11/22/16 Status: DiscontinuedANES morphine Sulfate 2 mg, Route: IVP, Q5Min, Dosing Weight 85.455, kg, PRN Pain Score 4-6, Start date: 11/22/16 15:34:00CDT, Duration: 5 doses or times, Stop date: Limited # of times Start Date: 11/22/16 Stop Date: 11/22/16 Status: DiscontinuedANES naloxone 0.4 mg, Route: IVP, Q2MIN, Dosing Weight 85.455, kg, PRN Narcotic Reversal, Start date: 11/22/16 15:34:00 CDT, Duration: 8 doses or times, Stop date: Limited # of times Start Date: 11/22/16 Stop Date: 11/22/16 Status: DiscontinuedANES ondansetron 4 mg, Route: IVP, ONCE, Dosing Weight 85.455, kg, PRN Nausea & Vomiting, Start date: 11/22/16 15:34:00 CDT Start Date: 11/22/16 Stop Date: 11/22/16 Status: Discontinuedbaclofen 10 mg oral tablet 10 mg=1 tab, PO, TID, # 270 tab, 0 Refill(s) Start Date: 11/15/16 Status: OrderedbuPROPion 300 mg/24 hours (XL) oral tablet, extended release 300 mg=1 tab, PO, Daily, # 30 tab, 0 Refill(s) Start Date: 11/15/16 Status: OrderedColace 100 mg oral capsule 100 mg, 1 cap, Route: PO, BID, Dosing Weight 85.455, kg, Start date: 11/22/16 17 :00:00 CDT, Duration: 30 day, Stop date: 12/22/16 9:00:00 CDT Start Date: 11/22/16 Stop Date: 11/22/16 Status: DiscontinuedCymbalta 30 mg oral delayed release capsule 30 mg=1 cap, PO, Bedtime, # 30 cap, 0 Refill(s) Start Date: 11/15/16 Status: OrderedCymbalta 60 mg oral delayed release capsule 60 mg=1 cap, PO, Daily, In morning, # 30 cap, 0 Refill(s) Start Date: 11/15/16 Status: Ordereddexamethasone (ANES) Route: IV, Drug form: INJ, ONCE, Stop date: 11/22/16 13:28:00 CDT Start Date: 11/22/16 Stop Date: 11/22/16 Status: CompletedDilaudid 0.5 mg, Route: IV, Q3H, Dosing Weight 85.455, kg, PRN Pain, Start date: 14:14:00 CDT, Duration: 30 day, Stop date: 12/22/16 14:13:00 CDT Start Date: 11/22/16 Stop Date: 11/22/16 Status: DiscontinuedDilaudid 1 mg, Route: IV, Q3H, Dosing Weight 85.455, kg, PRN Pain, Start date: 11/22/16 14:14:00 CDT, Duration: 30 day, Stop date: 12/22/16 14:13:00 CDT Start Date: 11/22/16 Stop Date: 11/22/16 Status: DiscontinuedePHEDrine (ANES) Route: IV, Drug form: INJ, ONCE, Stop date: 11/22/16 13:08:00 CDT Start Date: 11/22/16 Stop Date: 11/22/16 Status: Completedestropipate 1.5 mg oral tablet 1.5 mg=1 tab, PO, Daily, # 30 tab, 0 Refill(s) Start Date: 11/15/16 Status: Orderedfamotidine (ANES) Route: IV, Drug form: INJ, ONCE, Stop date: 11/22/16 13:23:00 CDT Start Date: 11/22/16 Stop Date: 11/22/16 Status: CompletedfentaNYL (ANES) Route: IV, Drug form: INJ, ONCE, Stop date: 11/22/16 12:48:00 CDT Start Date: 11/22/16 Stop Date: 11/22/16 Status: CompletedfentaNYL (ANES) Route: IV, Drug form: INJ, ONCE, Stop date: 11/22/16 13:23:00 CDT Start Date: 11/22/16 Stop Date: 11/22/16 Status: CompletedfentaNYL 25 mcg/hr transdermal film, extended release 1 patch, TOP, Q72H, 0 Refill(s) Start Date: 11/15/16 Status: Orderedgabapentin 400 mg oral capsule 400 mg=1 cap, PO, TID, 0 Refill(s) Start Date: 11/15/16 Status: Orderedglycopyrrolate (ANES) Route: IV, Drug form: INJ, ONCE, Stop date: 11/22/16 14:25:00 CDT Start Date: 11/22/16 Stop Date: 11/22/16 Status: Completedheparin 5000 units/mL injectable solution 5,000 unit, Route: SUB-Q, Drug form: INJ, Q12H, Dosing Weight 85.455, kg, Start date: 11/23/16 8:00:00 CDT, Duration: 30 day, Stop date: 12/22/16 21:00:00 CDT Start Date: 11/23/16 Stop Date: 11/22/16 Status: CanceledLactated Ringers Injection IV 1000 mL 1,000 mL, Rate: 25 ml/hr, Infuse over: 40 hr, Route: IV, Dosing Weight 85.455 kg , Total Volume: 1,000, Start date: 11/22/16 11:46:00 CDT, Duration: 30 day, Stop date: 12/22/16 11:45:00 CDT Start Date: 11/22/16 Stop Date: 11/22/16 Status: Discontinuedlidocaine (ANES) Route: IV, Drug form: INJ, ONCE, Stop date: 11/22/16 12:48:00 CDT Start Date: 11/22/16 Stop Date: 11/22/16 Status: CompletedLR 1000 mL INJ (ANES) Route: IV, Total Volume: 1,000, Start date: 11/22/16 11:46:00 CDT, Stop date: 12:46:00 CDT Start Date: 11/22/16 Stop Date: 11/22/16 Status: Completedmagnesium citrate 300 ml, Route: PO, Drug Form: LIQ, Dosing Weight 85.455, kg, ONCE, PRN Constipation, Start date: 11/22/16 14:14:00 CDT Start Date: 11/22/16 Stop Date: 11/22/16 Status: Discontinuedmetoprolol (ANES) Route: IV, Drug form: INJ, ONCE, Stop date: 11/22/16 14:25:00 CDT Start Date: 11/22/16 Stop Date: 11/22/16 Status: Completedmidazolam (ANES) Route: IV, Drug form: SOLN, ONCE, Stop date: 11/22/16 12:48:00 CDT Start Date: 11/22/16 Stop Date: 11/22/16 Status: Completedmorphine Sulfate 30 mg, 0 Refill(s) Start Date: 11/15/16 Status: Orderedneostigmine (ANES) Route: IV, Drug form: INJ, ONCE, Stop date: 11/22/16 14:25:00 CDT Start Date: 11/22/16 Stop Date: 11/22/16 Status: Completedondansetron (ANES) Route: IV, Drug form: INJ, ONCE, Stop date: 11/22/16 13:23:00 CDT Start Date: 11/22/16 Stop Date: 11/22/16 Status: CompletedoxyCODONE 5 mg oral tablet 10 mg, Route: PO, Drug form: TAB, ONCE, Dosing Weight 85.455, kg, PRN Pain Score 4-6, Start date: 11/22/16 16:21:00 CDT Start Date: 11/22/16 Stop Date: 11/22/16 Status: CompletedPepcid 20 mg oral tablet 20 mg, 1 tab, Route: PO, Drug form: TAB, Q12H, Dosing Weight 85.455, kg, Start date: 11/22/16 21:00:00 CDT, Duration: 30 day, Stop date: 12/22/16 9:00:00 CDT Start Date: 11/22/16 Stop Date: 11/22/16 Status: DiscontinuedPercocet 10/325 oral tablet 1 tab, PO, 4-6x/Day, PRN, # 20 tab, 0 Refill(s) Start Date: 11/15/16 Stop Date: 11/18/16 Status: Orderedpromethazine (ANES) (ANES) Route: IV, Drug form: INJ, Start date: 11/22/16 11:45:00 CDT, Stop date: 12:45:00 CDT Start Date: 11/22/16 Stop Date: 11/22/16 Status: Completedpromethazine 25 mg oral tablet 25 mg=1 tab, PO, Q6H, PRN Nausea/Vomiting, # 12 tab, 0 Refill(s) Start Date: 11/15/16 Stop Date: 11/18/16 Status: Orderedpropofol (ANES) Route: IV, Drug form: INJ, ONCE, Stop date: 11/22/16 12:48:00 CDT Start Date: 11/22/16 Stop Date: 11/22/16 Status: Completedrocuronium (ANES) Route: IV, Drug form: INJ, ONCE, Stop date: 11/22/16 12:48:00 CDT Start Date: 11/22/16 Stop Date: 11/22/16 Status: CompletedSenokot 2 tab, Route: PO, Dosing Weight 85.455, kg, Daily, Start date: 11/23/16 9:00:00 CDT, Duration: 30 day, Stop date: 12/22/16 9:00:00 CDT Start Date: 11/23/16 Stop Date: 11/22/16 Status: CanceledSodium Chloride 0.9% IV 1000 mL 1,000 mL, Rate: 75 ml/hr, Infuse over: 13.3 hr, Route: IV, Dosing Weight 85.455 kg, Total Volume: 1,000, Start date: 11/22/16 14:14:00 CDT, Duration: 30 day, Stop date: 12/22/16 14:13:00 CDT Start Date: 11/22/16 Stop Date: 11/22/16 Status: DiscontinuedSynthroid 137 mcg (0.137 mg) oral tablet 137 microgram=1 tab, PO, Daily, # 30 tab, 0 Refill(s) Start Date: 11/15/16 Status: OrderedTylenol 650 mg, Route: PO, Drug form: TAB, Q4H, Dosing Weight 85.455, kg, PRN Pain, Start date: 11/22/16 14:14:00 CDT, Duration: 30 day, Stop date: 12/22/16 14:13: 00 CDT Start Date: 11/22/16 Stop Date: 11/22/16 Status: Discontinuedvancomycin (ANES) (ANES) Route: IV, Drug form: INJ, Start date: 11/22/16 12:09:00 CDT, Stop date: 13:09:00 CDT Start Date: 11/22/16 Stop Date: 11/22/16 Status: Completedzaleplon 10 mg oral capsule 10 mg=1 cap, PO, Bedtime, PRN for sleep, # 30 cap, 0 Refill(s) Start Date: 11/15/16 Stop Date: 12/15/16 Status: OrderedZofran 4 mg, Route: IV, Drug form: INJ, Q8H, Dosing Weight 85.455, kg, PRN Nausea, Start date: 11/22/16 14:14:00 CDT, Duration: 30 day, Stop date: 12/22/16 14:13: 00 CDT Start Date: 11/22/16 Stop Date: 11/22/16 Status: Discontinued Results BLOOD BANK RESULTS Most recent to oldest [Reference Range]: 1 ABO/Rh B POS *Unknown* (11/15/16 2:15 PM) Antibody Scrn Negative (11/15/16 2:15 PM) Immunizations No data available for this section [...] Smoking Cessation Counseling No Assessment and Plan Extracted from: Title: Clinical Document Author: Shayne Duggan MD Date: 11/22/16 Neurosurgery Discharge Summary Admit Date: 11/22/2016 Discharge Date: 11/22/2016 Diagnosis: LEFT L4-L5 herniated disc Procedure: LEFT L4-L5 microdiscectomy Surgeon: [facility] Hospital Course: Patient admitted, underwent above procedure, tolerated well. Ambulated, urinated, tolerated oral POs, safe to discharge home in stable condition PE: Preop AFVSS IPs Q G AT [facility] R 5 5 5 5 5 L 5 5 5 4- 4- Postop AFVSS IPs Q G AT [facility] R 5 5 5 5 5 L 5 5 5 4- 4- c/d/i PLAN: Follow-up in [address] Duggan at [phone]
--- OUTSIDE RECORDS SUMMARY | 2018-09-06 03:19 | XMS REPORT ---
:1950 Author Organization [facility] Address [address] [place] [address] Dr. Torres [address] [place] [id number] Care Team Providers Name Role Phone Unavailable Unavailable Unavailable Payers Payer Name Policy Type Policy Number Effective Date Expiration Date Problems This patient has no known problems. Allergies, Adverse Reactions, Alerts Allergy Name Allergy Status Severity Reaction(s) Onset Inactive Treating Comments Type Date Date Clinician Penicillins DA Active MA 2018-02 00:00:0 0 codeine DA Active U 2018-02 00:00:0 0 clindamycin DA Active SV 2018-02 00:00:0 0 Medications This patient has no known medications.
--- OUTSIDE RECORDS SUMMARY | 2018-09-06 03:19 | XMS REPORT | Summary of Care ---
:1950 Author Organization [facility] Neurosurgery [facility] Address [address], [address] [place] [address]- Encounter HQ Encntr_alias(FIN) [id number] Date(s): 11/30/17 - 12/01/17 [facility] [address] [address] [place], [place] [address] [phone] Vital Signs No data available for this [...]
--- OUTSIDE RECORDS SUMMARY | 2018-09-06 03:19 | XMS REPORT | Summary of Care ---
:1950 Author Organization [facility] Outpatient Imaging [facility] Address [address] [place], [place] [address]- Encounter HQ Encntr_alias(FIN) [id number] Date(s): 12/04/17 - 12/04/17 [facility] Outpatient Imaging [address], [address] [place] [address]- [phone] Discharge Disposition: Home or Self Care Attending [...]
[2018-09-06] MEDS ORDERED: NA CHLORIDE 0.9% 100 ML IV ONE (03:58)
[2018-09-06] MEDS ORDERED: ONDANSETRON 4 MG/2 ML VIAL ONE (03:58)
[2018-09-06] MEDS ORDERED: NA CHLORIDE 0.9% 1,000 ML ONE (03:58)
[2018-09-06] MEDS ORDERED: LEVALBUTEROL 1.25 MG/3 ML NEB ONE (03:58)
[2018-09-06] MEDS ORDERED: KETOROLAC 30 MG/ML INJ ONE (03:58)
[2018-09-06] MEDS ORDERED: CEFTRIAXONE 1000 MG/VIAL ONE (03:58)
[2018-09-06 04:07] LABS: Absolute Lymphocytes (CBC) 0.4 K/uL (0.7-4.9); Absolute Monocytes 0.6 K/uL (0.1-1.3); Absolute Neutrophil 7.6 K/uL (1.8-8.0); Basophils % 0.5 % (0-1.3); Eosinophils % 4.2 % (0-4.4); Hematocrit 40.9 % (36.0-45.0); Lymphocytes % 4.7 % (15.3-44.8); MPV 10.3 fL (7.6-11.3); Monocytes % 6.2 % (3.3-12.3); RBC Red Blood Cell Count 4.71 M/uL (3.86-4.86)
[2018-09-06 04:29] LABS: Albumin 3.5 g/dL (3.4-5.0); Bilirubin Direct 0.2 mg/dL (0-0.2); Bilirubin Total 0.6 mg/dL (0.2-1.0); Potassium 3.1 mmol/L (3.5-5.1); Protein, Total 7.1 g/dL (6.4-8.2)
[2018-09-06] MEDS ORDERED: POTASSIUM 25 MEQ EFFERV TAB ONE (04:56)
--- NOTE | 2018-09-06 05:02 | ER ---
Nurse's Notes [facility] Name: Porfirio Headley Age: 68 yrs Sex: Female : 1950 Arrival Date: 09/06/2018 Time: 03:18 Bed 6 Private MD: Tanner Gonzalez V Diagnosis: hypokalemia;Acute Bilateral Otitis Media;viral syndrome Presentation: 09/06 03:30 Presenting complaint: Patient states: "I've been feeling bad since about Sunday with lp1 congestion, cough, sore throat but I got real nauseated tonight and both ears hurt real bad"; Patient states feeling nauseous, low grade fever at home. Transition of care: patient was not received from another setting of care. Onset of symptoms was September 06, 2018. Risk Assessment: Do you want to hurt yourself or someone else? Patient reports no desire to harm self or others. Initial Sepsis Screen: Does the patient meet any 2 criteria? RR > 20 per min. HR > 90 bpm. Yes Does the patient have a suspected source of infection? Yes: Productive cough/pneumonia. Care prior to arrival: None. 03:30 Method Of Arrival: Wheelchair lp1 03:30 Acuity: NATA 3 lp1 Historical: - Allergies: 03:39 Cleocin; lp1 03:39 Codeine; lp1 03:39 PENICILLINS; lp1 - Home Meds: 03:39 duloxetine 60 mg oral cpDR 1 cap once daily [Active]; estradiol 2 mg Oral tab 1 tab lp1 once daily [Active]; prednisone 5 mg Oral tab once daily [Active]; Plaquenil 200 mg Oral tab 2 times per day [Active]; Synthroid 137 mcg Oral tab 1 tab once daily [Active]; omeprazole 20 mg Oral cpDR 1 cap once daily [Active]; - PMHx: 03:39 Fibromyalgia; Hypothyroidism; lymes disease; Sjogren's syndrome; lp1 - PSHx: 03:39 Appendectomy; Rhinoplasty; Partial hysterectomy; L breast mass removal; R Rotator cuff lp1 repair; Bilateral carpel tunnel; lamenectomy; - Immunization history:: Adult Immunizations up to date. - Social history:: Smoking status: Patient/guardian denies using tobacco. - Ebola Screening: : No symptoms or risks identified at this time. - Family history:: not pertinent. - Hospitalizations: : No recent hospitalization is reported. Screenin:41 Abuse screen: Denies threats or abuse. Denies injuries from another. Nutritional lp1 screening: No deficits noted. Tuberculosis screening: No symptoms or risk factors identified. Fall Risk None identified. Assessment: 03:39 General: Appears uncomfortable, Behavior is appropriate for age, Reports chills for lp1 0-12 hours, feeling ill for 1-2 days, fatigue for 1-2 days. Pain: Complains of pain in head, bilateral ears Pain currently is 7 out of 10 on a pain scale. Quality of pain is described as aching. Neuro: Level of Consciousness is awake, alert, obeys commands, Oriented to person, place, time, situation. Cardiovascular: Patient's skin is warm and dry. Respiratory: Airway is patent Respiratory effort is even, Respiratory pattern is regular, Breath sounds with wheezes bilaterally. GI: Abdomen is non-distended, Bowel sounds present X 4 quads. Abd is soft and non tender X 4 quads. Reports nausea. : No signs and/or symptoms were reported regarding the genitourinary system. EENT: Throat is clear Patient hoarse when speaking. Derm: Skin is intact, Skin is dry, Skin is pale. Musculoskeletal: Circulation, motion, and sensation intact. 04:30 Reassessment: Patient appears in no apparent distress at this time. Patient resting, lp1 eyes closed, respirations unlabored. 05:30 Reassessment: Patient and/or family updated on plan of care and expected duration. Pain lp1 level reassessed. Patient aware of discharge on completion of 1L NS bolus Patient denies pain at this time. Patient states feeling better. Patient states symptoms have improved. Vital Signs: 03:31 BP 160 / 51; Pulse 103; Resp 22; Temp 98.6(O); Pulse Ox 99% on R/A; Weight 80.74 kg; lp1 Height 5 ft. 6 in. (167.64 cm); Pain 7/10; 04:03 BP 129 / 53; Pulse 77; Resp 19; Pulse Ox 100% on Nebulizer Mask; lp1 05:00 BP 143 / 61; Pulse 84; Resp 17; Pulse Ox 99% on R/A; lp1 06:10 BP 146 / 56; Pulse 83; Resp 19; Pulse Ox 98% on R/A; lp1 03:31 Body Mass Index 28.73 (80.74 kg, 167.64 cm) lp1 ED Course: 03:18 Patient arrived in ED. es 03:18 Tanner Gonzalez MD is Private Physician. es 03:19 Ritu Carmichael is Primary Nurse. cc3 03:21 Ricki Gaytan MD is Attending Physician. wa 03:29 Marcia Woodward, RN is Primary Nurse. lp1 03:31 Triage completed. lp1 03:32 Arm band placed on right wrist. lp1 03:40 Inserted saline lock: 20 gauge in right antecubital area, using aseptic technique. ao Blood collected. 03:41 Patient has correct armband on for positive identification. Placed in gown. Bed in low lp1 position. night monitor on. Pulse ox on. NIBP on. 04:36 XRAY Chest Pa And Lat (2 Views) In Process Unspecified. EDMS 05:14 No provider procedures requiring assistance completed. lp1 06:11 IV discontinued, No redness/swelling at site. Pressure dressing applied. lp1 Administered Medications: 04:02 Drug: NS 0.9% 1000 ml Route: IV; Rate: 1 bolus; Site: right antecubital; lp1 05:45 Follow up: IV Status: Completed infusion; IV Intake: 1000ml lp1 04:02 Drug: TORadol 30 mg Route: IVP; Site: right antecubital; lp1 04:47 Follow up: Response: Marked relief of symptoms lp1 04:02 Drug: Zofran 4 mg Route: IVP; Site: right antecubital; lp1 04:47 Follow up: Response: Nausea is decreased lp1 04:03 Drug: Xopenex 1.25 mg Route: Inhalation; lp1 04:03 Drug: Rocephin - (cefTRIAXone) 2 grams Route: IVPB; Infused Over: 30 mins; Site: right lp1 antecubital; 04:45 Follow up: IV Status: Completed infusion; IV Intake: 100ml lp1 04:48 Drug: Potassium Effervescent Tablet 50 mEq Route: PO; ao 05:31 Follow up: Response: No adverse reaction lp1 Intake: 04:45 IV: 100ml; Total: 100ml. lp1 05:45 IV: 1000ml; Total: 1100ml. lp1 Outcome: 05:01 Discharge ordered by . wa 06:11 Discharged to home ambulatory, with significant other. lp1 06:11 Condition: good 06:11 Discharge instructions given to patient, significant other, Instructed on discharge instructions, follow up and referral plans. medication usage, Demonstrated understanding of instructions, follow-up care, medications, Prescriptions given X 3, Zofran 06:12 Patient left the ED. lp1 Signatures: Dispatcher [employer] Liza Art Laura, RN RN lp1 Willy Roberts RN RN ao Appiah, William, MD MD wa Cordel, Charlene cc3 Corrections: (The following items were deleted from the chart) 03:33 03:30 Presenting complaint: Patient states: "I've been feeling bad since about Sunday lp1 with congestion, cough but I got real nauseated tonight and both ears hurt real bad"; Patient states feeling nauseous, low grade fever at home lp1 03:33 03:30 Initial Sepsis Screen: Does the patient meet any 2 criteria? No. Patient's lp1 initial sepsis screen is negative. Does the patient have a suspected source of infection? No. Patient's initial sepsis screen is negative. lp1
--- NOTE | 2018-09-06 05:02 | EDPHYS ---
Physician Documentation [facility] Name: Porfirio Headley Age: 68 yrs Sex: Female : 1950 Arrival Date: 09/06/2018 Time: 03:18 Bed 6 Private MD: Tanner Gonzalez V ED Physician Ricki Gaytan HPI: 09/06 03:41 This 68 yrs old Female presents to ER via Wheelchair with complaints of Sore wa Throat, Ear Pain, Nausea. 03:41 The patient presents with sore throat, pain, both ears. wa 03:42 The patient describes throat pain as constant, scratchy. Onset: The symptoms/episode wa began/occurred 3 day(s) ago. Severity of symptoms: At their worst the symptoms were moderate, in the emergency department the symptoms are unchanged. Modifying factors: The symptoms are alleviated by nothing, the symptoms are aggravated by nothing. Associated signs and symptoms: Pertinent positives: cough, earache, flu-like symptoms, malaise, nausea, rhinorrhea, Sore throat Pertinent negatives chest pain, diarrhea, headache, shortness of breath, vomiting. The patient has not experienced similar symptoms in the past. The patient has not recently seen a physician. Historical: - Allergies: 03:39 Cleocin; lp1 03:39 Codeine; lp1 03:39 PENICILLINS; lp1 - Home Meds: 03:39 duloxetine 60 mg oral cpDR 1 cap once daily [Active]; estradiol 2 mg Oral tab 1 tab lp1 once daily [Active]; prednisone 5 mg Oral tab once daily [Active]; Plaquenil 200 mg Oral tab 2 times per day [Active]; Synthroid 137 mcg Oral tab 1 tab once daily [Active]; omeprazole 20 mg Oral cpDR 1 cap once daily [Active]; - PMHx: 03:39 Fibromyalgia; Hypothyroidism; lymes disease; Sjogren's syndrome; lp1 - PSHx: 03:39 Appendectomy; Rhinoplasty; Partial hysterectomy; L breast mass removal; R Rotator cuff lp1 repair; Bilateral carpel tunnel; lamenectomy; - Immunization history:: Adult Immunizations up to date. - Social history:: Smoking status: Patient/guardian denies using tobacco. - Ebola Screening: : No symptoms or risks identified at this time. - Family history:: not pertinent. - Hospitalizations: : No recent hospitalization is reported. ROS: 03:44 Eyes: Negative for injury, pain, redness, and discharge, Neck: Negative for injury, wa pain, and swelling, Cardiovascular: Negative for chest pain, palpitations, and edema, Back: Negative for injury and pain, : Negative for injury, bleeding, discharge, and swelling, MS/Extremity: Negative for injury and deformity, Skin: Negative for injury, rash, and discoloration, Neuro: Negative for headache, weakness, numbness, tingling, and seizure, Psych: Negative for depression, anxiety, suicide ideation, homicidal ideation, and hallucinations. 03:44 Constitutional: Positive for body aches, chills, fever, Negative for poor PO intake, weight loss. 03:44 ENT: Positive for ear pain, sore throat, Negative for 03:44 Respiratory: Positive for cough, with yellow sputum, Negative for shortness of breath. 03:44 Abdomen/GI: Positive for nausea, Negative for vomiting, diarrhea. 03:44 All other systems are negative. Exam: 03:45 Head/Face: Normocephalic, atraumatic. Eyes: Pupils equal round and reactive to light, wa extra-ocular motions intact. Lids and lashes normal. Conjunctiva and sclera are non-icteric and not injected. Cornea within normal limits. Periorbital areas with no swelling, redness, or edema. Neck: Trachea midline, no thyromegaly or masses palpated, and no cervical lymphadenopathy. Supple, full range of motion without nuchal rigidity, or vertebral point tenderness. No Meningismus. Chest/axilla: Normal chest wall appearance and motion. Nontender with no deformity. No lesions are appreciated. Cardiovascular: Regular rate and rhythm with a normal S1 and S2. No gallops, murmurs, or rubs. Normal PMI, no JVD. No pulse deficits. Abdomen/GI: Soft, non-tender, with normal bowel sounds. No distension or tympany. No guarding or rebound. No evidence of tenderness throughout. Back: No spinal tenderness. No costovertebral tenderness. Full range of motion. Skin: Warm, dry with normal turgor. Normal color with no rashes, no lesions, and no evidence of cellulitis. MS/ Extremity: Pulses equal, no cyanosis. Neurovascular intact. Full, normal range of motion. Neuro: Awake and alert, GCS 15, oriented to person, place, time, and situation. Cranial nerves II-XII grossly intact. Motor strength 5/5 in all extremities. Sensory grossly intact. Cerebellar exam normal. Normal gait. Psych: Awake, alert, with orientation to person, place and time. Behavior, mood, and affect are within normal limits. 03:45 Constitutional: The patient appears in no acute distress, alert. 03:45 ENT: Ear canal(s): erythema, TM's: erythema, that is moderate, bilaterally, noted with exudate. bilateral myringotomy tubes. 03:45 Respiratory: the patient does not display signs of respiratory distress, Respirations: normal, Breath sounds: wheezing: expiratory that is mild, is heard diffusely, Respiratory rate: normal Vital Signs: 03:31 BP 160 / 51; Pulse 103; Resp 22; Temp 98.6(O); Pulse Ox 99% on R/A; Weight 80.74 kg; lp1 Height 5 ft. 6 in. (167.64 cm); Pain 7/10; 04:03 BP 129 / 53; Pulse 77; Resp 19; Pulse Ox 100% on Nebulizer Mask; lp1 05:00 BP 143 / 61; Pulse 84; Resp 17; Pulse Ox 99% on R/A; lp1 06:10 BP 146 / 56; Pulse 83; Resp 19; Pulse Ox 98% on R/A; lp1 03:31 Body Mass Index 28.73 (80.74 kg, 167.64 cm) lp1 MDM: 03:21 Patient medically screened. mn 03:47 Differential diagnosis: viral syndrome bilateral otitis media. will r/o pna. will wa treat, eval and reassess. 04:58 Data reviewed: vital signs, nurses notes, lab test result(s). Test interpretation: by mn ED physician or midlevel provider: labs noted for K of 3.1. flu negative. 04:59 Test interpretation: by ED physician or midlevel provider: CXR negative. mn 05:33 Test interpretation: by ED physician or midlevel provider: EKG: interp by me: HR 69. mn non-specific ST-T changes. Response to treatment: the patient's symptoms have markedly improved after treatment. 09/06 03:39 Order name: BMP; Complete Time: 04:40 mn 09/06 03:39 Order name: CBC with Diff; Complete Time: 04:40 mn 09/06 03:39 Order name: XRAY Chest Pa And Lat (2 Views) mn 09/06 03:39 Order name: Hepatic Function; Complete Time: 04:40 mn 09/06 03:42 Order name: Flu; Complete Time: 04:40 mn 09/06 03:39 Order name: EKG; Complete Time: 03:39 mn 09/06 03:39 Order name: Cardiac monitoring; Complete Time: 03:42 mn 09/06 03:39 Order name: EKG - Nurse/Tech; Complete Time: 03:42 mn 09/06 03:39 Order name: IV Saline Lock; Complete Time: 03:47 mn 09/06 03:39 Order name: Labs collected and sent; Complete Time: 03:47 mn 09/06 03:39 Order name: O2 Sat Monitoring; Complete Time: 03:42 mn Administered Medications: 04:02 Drug: NS 0.9% 1000 ml Route: IV; Rate: 1 bolus; Site: right antecubital; lp1 05:45 Follow up: IV Status: Completed infusion; IV Intake: 1000ml lp1 04:02 Drug: TORadol 30 mg Route: IVP; Site: right antecubital; lp1 04:47 Follow up: Response: Marked relief of symptoms lp1 04:02 Drug: Zofran 4 mg Route: IVP; Site: right antecubital; lp1 04:47 Follow up: Response: Nausea is decreased lp1 04:03 Drug: Xopenex 1.25 mg Route: Inhalation; lp1 04:03 Drug: Rocephin - (cefTRIAXone) 2 grams Route: IVPB; Infused Over: 30 mins; Site: right lp1 antecubital; 04:45 Follow up: IV Status: Completed infusion; IV Intake: 100ml lp1 04:48 Drug: Potassium Effervescent Tablet 50 mEq Route: PO; ao 05:31 Follow up: Response: No adverse reaction lp1 Disposition: 09/06/18 05:01 Discharged to Home. Impression: hypokalemia, Acute Bilateral Otitis Media, viral syndrome. - Condition is Stable. - Prescriptions for Potassium Chloride 20 meq Oral Packet - take 1 packet by ORAL route once daily 1 packet in 6 (six) ounces of water or juice; Take after meal; 30 packet. Zithromax Z- Tone 250 mg Oral Tablet - take 1 tablet by ORAL route as directed for 5 days Day 1 - take two (2) tablets one time. Day 2, 3, 4 , 5 take one (1) tablet once daily.; 6 tablet. Albuterol Sulfate 90 mcg/actuation - inhale 1-2 puff by INHALATION route every 4-6 hours; 1 Inhaler. - Medication Reconciliation Form, Thank You Letter, Antibiotic Education, Prescription Opioid Use form. - Follow up: Private Physician; When: 2 - 3 days; Reason: Recheck today's complaints. - Problem is new. - Symptoms have improved. Signatures: Dispatcher [employer] EDMS Marcia Woodward RN RN lp1 Willy Roberts RN RN ao Ricki Gaytan MD MD wa Corrections: (The following items were deleted from the chart) 06:12 05:01 09/06/2018 05:01 Discharged to Home. Impression: hypokalemia; Acute Bilateral lp1 Otitis Media; viral syndrome. Condition is Stable. Forms are Medication Reconciliation Form, Thank You Letter, Antibiotic Education, Prescription Opioid Use. Follow up: Private Physician; When: 2 - 3 days; Reason: Recheck today's complaints. Problem is new. Symptoms have improved. wa
--- NOTE | 2018-09-06 07:51 | RAD REPORT ---
EXAM DESCRIPTION: RAD - Chest Pa And Lat (2 Views) - 09/06/2018 4:36 am CLINICAL HISTORY: Cough and congestion COMPARISON: May 2018 TECHNIQUE: PA and lateral views of the chest were obtained. FINDINGS: The lungs are clear of peripheral mass, consolidation or acute failure finding. Interstiti al markings are prominent but not clearly different. Heart size is normal and central vasculature i s within normal limits. No pleural effusion or pneumothorax seen. No acute bony finding noted. No aortic abnormality. IMPRESSION: Prominent interstitial pattern matching comparison. No acute finding identifiable.
== END 2018-09-06 06:12 | disposition home or self-care (01) ==
LOC: ER 03:15
DX: H66.93 Otitis media, unspecified, bilateral (principal); E87.6 Hypokalemia; B34.9 Viral infection, unspecified; E03.9 Hypothyroidism, unspecified; Z88.0 Allergy status to penicillin; Z88.5 Allergy status to narcotic agent; Z88.8 Allergy status to other drugs, medicaments and biological substances
CPT/HCPCS: 96365; 96361; 93005; 85025; 80048; 36415; 80076; 87804 ×2; 71046; 96375; 99285; J7030; J2405

== ENCOUNTER 2023-12-23 14:33 | Emergency (ER) | payer OTHER ==
--- NOTE | 2023-12-23 16:23 | RAD REPORT ---
EXAM DESCRIPTION: US - Extremity Venous Uni Ltd - 12/23/2023 4:15 pm CLINICAL HISTORY: PAIN Leg swelling and edema. COMPARISON: No comparisons FINDINGS: Left lower extremity venous system was interrogated with Doppler technique. Normal flow, c ompressibility and augmentation was noted. There is no DVT present. IMPRESSION: No evidence of left lower extremity deep venous thrombosis.
--- NOTE | 2023-12-23 17:12 | ER ---
Nurse's Notes [facility] Name: Porfirio Headley Age: 73 yrs Sex: Female : 1950 Arrival Date: 12/23/2023 Time: 14:33 Bed 20 Private MD: Diagnosis: Pain in left leg;Local infection of the skin and subcutaneous tissue, unspecified Presentation: 12/22 14:53 Chief complaint: Had suspicious lesion on left lower leg frozen on 12/12, started having hb swelling just above site that now extends to left upper inner thigh with increasing pain. Coronavirus screen: At this time, the client does not indicate any symptoms associated with coronavirus-19. Ebola Screen: No symptoms or risks identified at this time. Initial Sepsis Screen: Does the patient meet any 2 criteria? No. Patient's initial sepsis screen is negative. Does the patient have a suspected source of infection? No. Patient's initial sepsis screen is negative. Risk Assessment: Do you want to hurt yourself or someone else? Patient reports no desire to harm self or others. Onset of symptoms was December 13, 2023. 14:53 Method Of Arrival: Ambulatory hb 14:53 Acuity: NATA 3 hb Triage Assessment: 15:03 General: Appears in no apparent distress. Behavior is calm, cooperative. Pain: Pain hb currently is 3 out of 10 on a pain scale. Neuro: Level of Consciousness is awake, alert, obeys commands, Oriented to person, place, time, situation. Cardiovascular: Patient's skin is warm and dry. Respiratory: Respiratory effort is even, unlabored, Respiratory pattern is regular, symmetrical. Derm: Wound noted medial aspect of left calf. Historical: - Allergies: 14:55 Cleocin; hb 14:55 Codeine; hb 14:55 PENICILLINS; hb - PMHx: 14:55 Fibromyalgia; Hypothyroidism; lymes disease; Sjogren's Syndrome; hb - Immunization history:: Adult Immunizations up to date. - Infectious Disease History:: Denies. - Social history:: Smoking status: Patient denies any tobacco usage or history of. Screenin:10 [facility] ED Fall Risk Assessment (Adult) History of falling in the last 3 months, me1 including since admission No falls in past 3 months (0 pts) Confusion or Disorientation No (0 pts) Intoxicated or Sedated No (0 pts) Impaired Gait Yes (1 pt) Mobility Assist Device Used No (0 pt) Altered Elimination No (0 pt) Score/Fall Risk Level 0 - 2 = Low Risk Maintained a safe environment, Provided non-skid footwear, Hourly rounding (assess needs \T\ fall precautionary measures) done. Abuse screen: Denies threats or abuse. Nutritional screening: No deficits noted. Tuberculosis screening: No symptoms or risk factors identified. Assessment: 15:10 General: Appears uncomfortable, well groomed, well developed, well nourished, Behavior me1 is calm, cooperative, appropriate for age, Reports Had suspicious lesion on left lower leg frozen on 12/12, started having swelling just above site that now extends to left upper inner thigh with increasing pain. Pain: Complains of pain in left leg and medial aspect of left calf Pain does not radiate. Pain currently is 4 out of 10 on a pain scale. Quality of pain is described as tender, Pain began gradually, Is continuous. Neuro: Level of Consciousness is awake, alert, obeys commands, Oriented to person, place, time, situation, Appropriate for age. Cardiovascular: Capillary refill < 3 seconds Patient's skin is warm and dry. Respiratory: Airway is patent Respiratory effort is even, unlabored, Respiratory pattern is regular, symmetrical. GI: No signs and/or symptoms were reported involving the gastrointestinal system. : No signs and/or symptoms were reported regarding the genitourinary system. EENT: No signs and/or symptoms were reported regarding the EENT system. Derm: Wound noted left leg and medial aspect of left calf Wound is scabbed area where lesion was frozen off. Musculoskeletal: Reports pain in left leg and medial aspect of left calf. Vital Signs: 14:53 BP 133 / 59; Pulse 66; Resp 16; Temp 98.2(O); Pulse Ox 100% on R/A; Weight 75.75 kg; hb Height 5 ft. 6 in. ; Pain 3/10; 15:00 BP 96 / 58; Pulse 66; Resp 16; Pulse Ox 100% on R/A; Pain 4/10; me1 16:00 BP 135 / 56; Pulse 62; Resp 14; Pulse Ox 99% on R/A; me1 17:00 BP 136 / 52; Pulse 60; Resp 17; Pulse Ox 100% on R/A; me1 14:53 Body Mass Index 26.95 (75.75 kg, 167.64 cm) hb 14:53 Pain Scale: Adult hb 15:00 Pain Scale: Adult me1 ED Course: 14:35 Patient arrived in ED. rg4 14:42 Enrique Perez PA is PHCP. cp 14:42 Carlos Issa MD is Attending Physician. cp 14:55 Triage completed. hb 14:55 Arm band placed on. hb 15:02 Kaylin Herbert, RN is Primary Nurse. me1 15:10 Patient has correct armband on for positive identification. Bed in low position. Call me1 light in reach. Side rails up X2. Provided Education on: POC. Verbalized understanding. . Client placed on continuous cardiac and pulse oximetry monitoring. NIBP monitoring applied. Pulse ox on. NIBP on. 15:10 No provider procedures requiring assistance completed. me1 16:17 US Extremity Venous Unilateral Ltd In Process Unspecified. EDMS 17:24 Patient did not have IV access during this emergency room visit. me1 Administered Medications: No medications were administered Medication: 15:10 VIS not applicable for this client. me1 Outcome: 17:12 Discharge ordered by MD. cp 17:24 Discharged to home ambulatory, with significant other, me1 17:24 Condition: stable 17:24 Discharge instructions given to patient, significant other, Instructed on discharge instructions, follow up and referral plans. medication usage, Demonstrated understanding of instructions, follow-up care, medications, Prescriptions given X 1, 17:37 Patient left the ED. me1 Signatures: Dispatcher [employer] EDID Enrique Perez PA PA cp Baxter, Heather, RN RN Tami Parsons rg4 Kaylin Herbert, MICKIE RN me1 Corrections: (The following items were deleted from the chart) 15:08 14:53 Chief complaint: Had suspicious lesion on left lower leg frozen on 12/12, started me1 having swelling just above site that now extends to left upper inner thigh with increasing pain. hb
--- NOTE | 2023-12-23 17:12 | EDPHYS ---
Physician Documentation [facility] Name: Porfirio Headley Age: 73 yrs Sex: Female : 1950 Arrival Date: 12/23/2023 Time: 14:33 Bed 20 Private MD: ED Physician Carlos Issa HPI: 12/22 14:55 This 73 yrs old Female presents to ER via Ambulatory with complaints of Leg Swelling. cp 14:55 The patient presents with pain, that is acute, swelling, tenderness. The complaints cp affect the medial aspect of left calf and left medial ankle. 14:55 Onset: The symptoms/episode began/occurred gradually. cp 14:55 Associated signs and symptoms: Pertinent positives: calf tenderness, swelling, cp erythema, Pertinent negatives fever. Patient reports having skin lesion froze on left ankle on 12-13-2023. Comes to ED today with c/o increasing swelling, pain to left leg. Historical: - Allergies: 14:55 Cleocin; hb 14:55 Codeine; hb 14:55 PENICILLINS; hb - PMHx: 14:55 Fibromyalgia; Hypothyroidism; lymes disease; Sjogren's Syndrome; hb - Immunization history:: Adult Immunizations up to date. - Infectious Disease History:: Denies. - Social history:: Smoking status: Patient denies any tobacco usage or history of. ROS: 15:00 MS/extremity: Positive for pain, of the left leg, cp 15:00 Eyes: Negative for injury, pain, redness, and discharge, cp 15:00 Constitutional: Negative for body aches, chills, fever, poor PO intake, 15:00 Cardiovascular: Negative for chest pain, 15:00 Respiratory: Negative for cough, shortness of breath, wheezing, 15:00 Abdomen/GI: Negative for abdominal pain, nausea, vomiting, and diarrhea, 15:00 Back: Negative for pain at rest, pain with movement, 15:00 Neuro: Negative for altered mental status, dizziness, numbness, tingling, weakness, 15:00 All other systems are negative, Exam: 15:05 Constitutional: The patient appears in no acute distress, alert, awake, cp non-diaphoretic, non-toxic, well developed, well nourished, 15:05 Head/Face: Normocephalic, atraumatic. cp 15:05 Chest/axilla: Inspection: normal, 15:05 Cardiovascular: Rate: normal, Edema: is not appreciated, JVD: is not appreciated, 15:05 Respiratory: the patient does not display signs of respiratory distress, Respirations: normal, no use of accessory muscles, no retractions, labored breathing, is not present, Breath sounds: are clear throughout, no decreased breath sounds, no stridor, no wheezing, 15:05 Back: pain, is absent, ROM is normal, 15:05 Musculoskeletal/extremity: Extremities: grossly normal except: noted in the left leg: small superficial wound noted medial left ankle with mild surrounding erythema, tenderness of leg extending to medial and anterior thigh, ROM: full active range of motion, in the left leg, Pulses: noted to be 2+ in the left dorsalis pedis artery, the left leg Sensation intact. Vital Signs: 14:53 BP 133 / 59; Pulse 66; Resp 16; Temp 98.2(O); Pulse Ox 100% on R/A; Weight 75.75 kg; hb Height 5 ft. 6 in. ; Pain 3/10; 15:00 BP 96 / 58; Pulse 66; Resp 16; Pulse Ox 100% on R/A; Pain 4/10; me1 16:00 BP 135 / 56; Pulse 62; Resp 14; Pulse Ox 99% on R/A; me1 17:00 BP 136 / 52; Pulse 60; Resp 17; Pulse Ox 100% on R/A; me1 14:53 Body Mass Index 26.95 (75.75 kg, 167.64 cm) hb 14:53 Pain Scale: Adult hb 15:00 Pain Scale: Adult me1 MDM: 14:46 Patient medically screened. cp 15:00 Differential diagnosis: cellulitis, abscess, DVT, arterial occlusion. cp 17:11 Data reviewed: vital signs, nurses notes, radiologic studies, ultrasound, and as a cp result, I will discharge patient. 17:11 Counseling: I had a detailed discussion with the patient and/or guardian regarding the cp historical points, exam findings, and any diagnostic results supporting the discharge/admit diagnosis, radiology results, the need for outpatient follow up, a family practitioner, to return to the emergency department if symptoms worsen or persist or if there are any questions or concerns that arise at home. 12/22 15:10 Order name: US Extremity Venous Unilateral Ltd; Complete Time: 17:01 cp 12/22 17:01 Interpretation: Report reviewed. cp Administered Medications: No medications were administered Disposition Summary: 12/23/23 17:12 Discharge Ordered Notes: Location: Home cp Problem: new cp Symptoms: have improved cp Condition: Stable cp Diagnosis - Pain in left leg cp - Local infection of the skin and subcutaneous tissue, unspecified cp Followup: cp - With: Private Physician - When: 2 - 3 days - Reason: Recheck today's complaints Discharge Instructions: - Discharge Summary Sheet cp - Musculoskeletal Pain cp - How to Use Cold Therapy cp - Heat Therapy cp Forms: - Medication Reconciliation Form cp - Antibiotic Education cp - Prescription Opioid Use cp - Patient Portal Instructions cp - Leadership Thank You Letter cp Prescriptions: - Cephalexin 500 mg Oral Capsule - take 1 capsule ORAL route every 6 hours for 10 days; 40 capsule; Refills: 0, cp Product Selection Permitted Addendum: 12/25/2023 14:17 I was immediately available for consultation during this patient's visit. I did not e c2 personally see the patient or discuss the patient with the [facility]. . Signatures: Dispatcher [employer] EDMS Enrique Perez PA PA cp Jaelyn Robledo, MICKIE RN Carlos Davis MD MD ec2 Corrections: (The following items were deleted from the chart) 12/22 15:10 15:10 Extremity Venous Uni Ltd+[email or web address].PATRICIA ordered. EDNV EDMS
[2023-12-23 18:16] VITALS: BP 136/52; TEMP 98.2; O2SAT 100
== END 2023-12-23 17:37 | disposition home or self-care (01) ==
LOC: ER 14:33
DX: L08.9 Local infection of the skin and subcutaneous tissue, unspecified (principal)
CPT/HCPCS: 93971; 99283

== ENCOUNTER 2024-07-14 10:21 | Day surgery (SDC) | payer OTHER ==
[2024-07-14 10:41] LABS: Absolute Eosinophils 0.1 K/uL (0-0.5); Absolute Monocytes 0.5 K/uL (0.1-1.3); Basophils % 0.3 % (0-1.3); Hematocrit 40.8 % (36.0-45.0); Hemoglobin 13.5 g/dL (12.0-15.0); Lymphocytes % 10.2 % (15.3-44.8); MCHC 32.9 g/dL (32.0-36.0); MPV 8.6 fL (7.6-11.3); Monocytes % 5.4 % (3.3-12.3); Neutrophils % 83.1 % (41.7-73.7); Platelets 289 thou/uL (152-406); RBC Red Blood Cell Count 4.64 M/uL (3.86-4.86); Red Cell Distribution Width 13.6 % (12.1-15.2)
[2024-07-14] MEDS: Ringers Lactate 1,000 ML IV ONE (10:45)
[2024-07-14 10:53] LABS: Anion Gap 9.5 mEq/L (5.0-15.0); Potassium 3.5 mEq/L (3.5-5.1)
[2024-07-14] MEDS ORDERED: LIDOCAINE 1% MPF 30 ML VIAL ONE (11:34)
[2024-07-14] MEDS ORDERED: GLYCOPYRROLATE 0.2 MG/ML SYR ONE (11:34)
[2024-07-14] MEDS ORDERED: propofoL 200 MG/20 ML VIAL IV ONE (11:34)
[2024-07-14 13:38] VITALS: BP 154/75; TEMP 98.1; O2SAT 100
== END 2024-07-14 13:01 | disposition home or self-care (01) ==
LOC: OR 10:21
PROVIDERS: ATTEND Surgery
PROC: 0DJD8ZZ Inspection of Lower Intestinal Tract, Via Natural or Artificial Opening Endoscopic (ICD-10-PCS; principal; 2024-07-14 12:00)
DX: Z12.11 Encounter for screening for malignant neoplasm of colon (principal); K64.8 Other hemorrhoids; K64.4 Residual hemorrhoidal skin tags
CPT/HCPCS: 85025; 80048; 36415; J2704; J2003; J7120; G0121

== ENCOUNTER 2024-11-17 11:36 | Emergency (ER) | payer OTHER ==
[2024-11-17] MEDS ORDERED: DIAZEPAM 5 MG TABLET ONE (12:30)
--- NOTE | 2024-11-17 13:00 | RAD REPORT ---
EXAMINATION: CT LUMBAR SPINE WITHOUT CONTRAST CLINICAL INDICATION: Female, 74 years old. lumbar pain. Sx 08/06/2024 TECHNIQUE: Axial CT images were obtained through the lumbar spine in soft tissue and bone windows wit hout intravenous contrast. Coronal and Sagittal reformatted images were created from the data set. One or more of the following dose reduction techniques were used: Automated exposure control, adjustm ent of the mA and/ or kV according to patient size, and/or iterative reconstruction. Unless otherwise specified, incidental findings do not require dedicated imaging follow-up. COMPARISON: No prior exam. FINDINGS: For purposes of this dictation, it is assumed that there are 5 non rib-bearing lumbar type vertebrae, and the most caudal fully segmented lumbar vertebra is labeled L5. ALIGNMENT: The lumbar spine demonstrates normal alignment without scoliosis or spondylolisthesis. BONES: Sequelae of bilateral laminectomies and right hemilaminectomy at L3-4 and L4-5 respectively. T ranspedicular screws interbody spacer at L4-5 in satisfactory alignment. Vertebral body heights are preserved. No aggressive osseous lesions. Other mild spondylotic changes with endplate remodeling mos t pronounced at L4-5 more so along the right more than left subarticular zones, contributing to moderate degrees of neural foraminal narrowing. DISCS: Intervertebral disc space heights are maintained. LEVELS: Disc bulges at other levels most notably at L2-3, asymmetric the left central and subarticula r zone contributing to moderate neural foraminal narrowing. No bony central canal stenosis. SOFT TISSUE: No soft tissue abnormalities. IMPRESSION: No acute lumbar spine abnormalities. Spondylotic and postsurgical changes as above. Findings contribute to moderate degrees of neural fora mónica narrowing at L4-5 bilaterally and at L3-4 and the left.
--- NOTE | 2024-11-17 13:02 | RAD REPORT ---
EXAM: C Spine Wo Con HISTORY: PAIN COMPARISON: None TECHNIQUE: Multiple contiguous axial images were obtained in a CT of the cervical spine without IV co ntrast. Sagittal and coronal reformats were performed. One or more of the following dose reduction techniques were used: Automated exposure control, adjustment of the mA and kV according to patient si ze, and iterative reconstruction. Unless otherwise specified, incidental findings do not require dedicated imaging follow-up. FINDINGS: The vertebral bodies and intervertebral discs demonstrate normal height and alignment without fractur e or subluxation. C4-C6 anterior plating hardware. Multilevel degenerative changes with endplate, uncovertebral joint, and facet arthropathy most pronounced at C3-4 bilaterally contributing to modera te bilateral neural foraminal narrowing. No prevertebral soft tissue swelling is seen. The posterior facets are well aligned. Normal alignment of the skull base with the cervical spine is seen. The lung apices are unremarkable. The cervical soft tissues are unremarkable. IMPRESSION: No evidence of acute osseous abnormality of the cervical spine. Degenerative changes as above.
[2024-11-17 13:41] LABS: Specific Gravity 1.026 (1.005-1.030); Sqamous Epithelial <5 /HPF (None Seen); Urine Bacteria None Seen /HPF (<20); Urine Bilirubin NEGATIVE (Negative); Urine Blood Trace (Negative); Urine Clarity Turbid (Clear); Urine Color Yellow (Yellow); Urine Culture Reflex Order NOT NEEDED; Urine Glucose NEGATIVE (Negative); Urine Ketones NEGATIVE (Negative); Urine Microscopic Reflex YN ORDER UMIC; Urine Mucus Slight /HPF (None Seen); Urine Nitrite NEGATIVE (Negative); Urine Protein NEGATIVE (Negative); Urine RBC <5 /HPF (None Seen); Urine Urobilinogen 1+ (Normal); Urine WBC <5 /HPF (<5); Urine pH 5.5 (5.0-7.0)
--- NOTE | 2024-11-17 14:21 | EDPHYS ---
Physician Documentation [facility] Name: Porfirio Headley Age: 74 yrs Sex: Female : 1950 Arrival Date: 11/17/2024 Time: 11:36 Bed 27 Private MD: ED Physician Steve Downey HPI: 11/17 12:01 This 74 yrs old Female presents to ER via Ambulatory with complaints of Back Pain. ms3 12:01 74-year-old female with past medical history of fibromyalgia, hypothyroidism, Lyme's ms3 disease, Sjogren syndrome, anxiety, hypertension presents to the emergency department for low back pain that has been ongoing for 1 week and becoming worse. Patient states her discomfort is an 8/10. Patient states she had surgery August [address] Tyler Valles at [facility] in [place]. Patient denies numbness, or loss of bowel or bladder function.. Historical: - Allergies: 11:46 Cleocin; hb 11:46 Codeine; hb 11:46 PENICILLINS; hb - PMHx: 11:46 Fibromyalgia; Hypothyroidism; lymes disease; Sjogren's Syndrome; hb - PSHx: 11:48 Back x 2; hb - Immunization history:: Adult Immunizations up to date. - Infectious Disease History:: Denies. - Social history:: Smoking status: Patient denies any tobacco usage or history of. ROS: 12:01 Constitutional: Negative for fever, and chills. Cardiovascular: Negative for chest ms3 pain, and palpitations. Respiratory: Negative for shortness of breath, cough, wheezing, and pleuritic chest pain, Abdomen/GI: Negative for abdominal pain, nausea, vomiting, diarrhea, and constipation, 12:01 MS/extremity: Positive for pain, Exam: 12:01 Constitutional: This is a well developed, well nourished patient who is awake, alert, ms3 and in no acute distress. Cardiovascular: Regular rate and rhythm with a normal S1 and S2. No gallops, murmurs, or rubs. Normal PMI, no JVD. No pulse deficits. Respiratory: Lungs have equal breath sounds bilaterally, clear to auscultation and percussion. No rales, rhonchi or wheezes noted. No increased work of breathing, no retractions or nasal flaring. Abdomen/GI: Soft, non-tender, with normal bowel sounds. No distension or tympany. No guarding or rebound. No evidence of tenderness throughout. 12:01 MS/ Extremity: Pulses equal, no cyanosis. Neurovascular intact. Full, normal range of motion. 12:01 Back: 3 vertical scars without erythema, drainage over lumbar spine, Vital Signs: 11:48 BP 122 / 58; Pulse 76; Resp 16; Temp 97.8; Pulse Ox 97% on R/A; Weight 82.55 kg; Height hb 5 ft. 6 in. ; Pain 8/10; 14:18 BP 125 / 63; Pulse 74; Resp 16; Temp 98.2; Pulse Ox 98% on R/A; dd2 11:48 Body Mass Index 29.37 (82.55 kg, 167.64 cm) hb 11:48 Pain Scale: Adult hb Dragoon Coma Score: 13:20 Eye Response: spontaneous(4). Motor Response: obeys commands(6). Verbal Response: dd2 oriented(5). Total: 15. MDM: 11:53 Medical Screening Exam initiated ms3 12:01 Differential diagnosis: chronic back pain, Fracture Neoplasm ruptured disc, sprain. ms3 14:23 Data reviewed: vital signs, nurses notes, lab test result(s), radiologic studies, CT ms3 scan, and as a result, I will discharge patient. I considered the following discharge prescriptions or medication management in the emergency department Medications were administered in the Emergency Department. See MAR. Historians other than the Patient: Daughter/Son: Daughter. Counseling: I had a detailed discussion with the patient and/or guardian regarding the historical points, exam findings, and any diagnostic results supporting the discharge/admit diagnosis, lab results, radiology results, the need for outpatient follow up, to return to the emergency department if symptoms worsen or persist or if there are any questions or concerns that arise at home. ED course: . 11/17 11:55 Order name: UA Rfx Kishore Cult if indicated; Complete Time: 14:14 ms3 11/17 11:55 Order name: CT Lumbar Spine Wo Con; Complete Time: 14:14 ms3 11/17 12:13 Order name: C Spine Wo Con; Complete Time: 14:14 EDMS Administered Medications: 12:33 Drug: Diazepam PO 5 mg PO once Route: PO; ll1 Disposition Summary: 11/17/24 14:21 Discharge Ordered Notes: Location: Home ms3 Condition: Stable ms3 Diagnosis - Low back pain ms3 - Neck Pain ms3 Followup: ms3 - With: Private Physician - When: 2 - 3 days - Reason: Recheck today's complaints Discharge Instructions: - Discharge Summary Sheet ms3 - Acute Back Pain, Adult ms3 Forms: - Medication Reconciliation Form ms3 - Antibiotic Education ms3 - Prescription Opioid Use ms3 - Patient Portal Instructions ms3 - Leadership Thank You Letter ms3 Signatures: Dispatcher [employer] EDMS Jaelyn Robledo, RN RN Allyson Daly RN RN ll1 Steve Downey DO DO ms3 Corrections: (The following items were deleted from the chart) 11:55 11:55 Spine Lumbar Wo Con+CT.RAD.BRZ ordered. EDMS EDMS
--- NOTE | 2024-11-17 14:21 | ER ---
Nurse's Notes [facility] Name: Porfirio Headley Age: 74 yrs Sex: Female : 1950 Arrival Date: 11/17/2024 Time: 11:36 Bed 27 Private MD: Diagnosis: Low back pain;Neck Pain Presentation: 11/17 11:46 Chief complaint: Low back and neck pain x 1 week. Coronavirus screen: At this time, the hb client does not indicate any symptoms associated with coronavirus-19. Ebola Screen: No symptoms or risks identified at this time. Initial Sepsis Screen: Does the patient meet any 2 criteria? No. Patient's initial sepsis screen is negative. Does the patient have a suspected source of infection? No. Patient's initial sepsis screen is negative. Risk Assessment: Do you want to hurt yourself or someone else? Patient reports no desire to harm self or others. 11:46 Method Of Arrival: Ambulatory hb 11:48 Onset of symptoms was November 11, 2024. hb 11:48 Acuity: NATA 3 hb Historical: - Allergies: 11:46 Cleocin; hb 11:46 Codeine; hb 11:46 PENICILLINS; hb - PMHx: 11:46 Fibromyalgia; Hypothyroidism; lymes disease; Sjogren's Syndrome; hb - PSHx: 11:48 Back x 2; hb - Immunization history:: Adult Immunizations up to date. - Infectious Disease History:: Denies. - Social history:: Smoking status: Patient denies any tobacco usage or history of. Screenin:20 [facility] ED Fall Risk Assessment (Adult) History of falling in the last 3 months, dd2 including since admission No falls in past 3 months (0 pts) Confusion or Disorientation No (0 pts) Intoxicated or Sedated No (0 pts) Impaired Gait No (0 pts) Mobility Assist Device Used No (0 pt) Altered Elimination No (0 pt) Score/Fall Risk Level 0 - 2 = Low Risk Oriented to surroundings, Maintained a safe environment, Educated pt \T\ family on fall prevention, incl call for assistance when getting out of bed, Assessed \T\ reinforced patient's understanding of fall precautions, Hourly rounding (assess needs \T\ fall precautionary measures) done. Abuse screen: Denies threats or abuse. Denies injuries from another. Nutritional screening: No deficits noted. Tuberculosis screening: No symptoms or risk factors identified. Assessment: 12:34 Reassessment: No changes from previously documented assessment. Patient and/or family ll1 updated on plan of care and expected duration. Pain level reassessed. 13:10 Reassessment: No changes from previously documented assessment. Patient and/or family ll1 updated on plan of care and expected duration. Pain level reassessed. 13:19 Reassessment: RECEIVED PT TO ROOM. ASSUMING CARE AT THIS TIME. dd2 13:20 General: Appears in no apparent distress. uncomfortable, Behavior is calm, cooperative, dd2 appropriate for age. Pain: Complains of pain in back and neck Pain does not radiate. Pain currently is 6 out of 10 on a pain scale. Pain began X1 WEEK. Neuro: No deficits noted. Level of Consciousness is awake, alert, obeys commands, Oriented to person, place, time, situation, Appropriate for age. Cardiovascular: No deficits noted. Patient's skin is warm and dry. Respiratory: No deficits noted. Airway is patent Respiratory effort is even, unlabored, Respiratory pattern is regular, symmetrical. GI: No deficits noted. No signs and/or symptoms were reported involving the gastrointestinal system. : No deficits noted. No signs and/or symptoms were reported regarding the genitourinary system. EENT: No deficits noted. No signs and/or symptoms were reported regarding the EENT system. Derm: No deficits noted. No signs and/or symptoms reported regarding the dermatologic system. Musculoskeletal: Tenderness present in neck Reports pain in back and neck. Vital Signs: 11:48 BP 122 / 58; Pulse 76; Resp 16; Temp 97.8; Pulse Ox 97% on R/A; Weight 82.55 kg; Height hb 5 ft. 6 in. ; Pain 8/10; 14:18 BP 125 / 63; Pulse 74; Resp 16; Temp 98.2; Pulse Ox 98% on R/A; dd2 11:48 Body Mass Index 29.37 (82.55 kg, 167.64 cm) hb 11:48 Pain Scale: Adult hb Alex Coma Score: 13:20 Eye Response: spontaneous(4). Motor Response: obeys commands(6). Verbal Response: dd2 oriented(5). Total: 15. ED Course: 11:45 Patient arrived in ED. hb 11:46 Steve Downey DO is Attending Physician. ms3 11:48 Arm band placed on. hb 11:52 Triage completed. hb 12:14 C Spine Wo Con In Process Unspecified. EDMS 12:15 CT Lumbar Spine Wo Con In Process Unspecified. EDMS 13:06 Patient placed in an exam room, on a stretcher. ll1 13:07 DURGA SOLORIO, RN is Primary Nurse. dd2 13:18 UA Rfx Kishore Cult if indicated Sent. dd2 13:20 Patient has correct armband on for positive identification. Bed in low position. Call dd2 light in reach. Client placed on continuous cardiac and pulse oximetry monitoring. NIBP monitoring applied. Door closed. Noise minimized. Warm blanket given. Pillow given. Verbal reassurance given. 13:20 No provider procedures requiring assistance completed. Patient did not have IV access dd2 during this emergency room visit. Patient maintains SpO2 saturation greater than 95% on room air. 14:26 Provided Education on: D/C EDUCATION. dd2 Administered Medications: 12:33 Drug: Diazepam PO 5 mg PO once Route: PO; ll1 Medication: 13:20 VIS not applicable for this client. dd2 Outcome: 14:21 Discharge ordered by MD. ms3 14:26 Discharged to home ambulatory, with family, dd2 14:26 Condition: stable 14:26 Discharge instructions given to patient, Instructed on discharge instructions, follow up and referral plans. medication usage, Demonstrated understanding of instructions, follow-up care, medications, 14:46 Patient left the ED. dd2 Signatures: Dispatcher [employer] EDWV Jaelyn Robledo RN RN Allyson Daly RN RN ll1 Steve Downey DO DO ms3 DURGA SOLORIO, MICKIE RN dd2 Corrections: (The following items were deleted from the chart) 11:49 11:46 Chief complaint: Low back and neck pain x 2 days hb hb 11:52 11:48 BP 117 / 64; Pulse 76bpm; Resp 16bpm; Pulse Ox 97% RA; 82.55 kg; Height 5 ft. 6 hb in.; BMI: 29.3; Pain 8/10, Adult; hb
[2024-11-17 14:52] VITALS: BP 125/63; TEMP 98.2; O2SAT 98
== END 2024-11-17 14:46 | disposition home or self-care (01) ==
LOC: ER 11:36
DX: M54.50 Low back pain, unspecified (principal); M54.2 Cervicalgia
CPT/HCPCS: 72125; 72131; 81001; 99284

== ENCOUNTER 2025-02-06 15:54 | Inpatient (IN) | payer OTHER ==
--- NOTE | 2025-02-06 16:29 | RAD REPORT ---
EXAMINATION: ONE VIEW CHEST XR CLINICAL INDICATION: tachycardia TECHNIQUE: Frontal chest projection is submitted. Examination is limited by patient positioning and t echnique. COMPARISON: 09/06/2018 FINDINGS: The lungs are well inflated and clear. The heart is mildly prominent in size. No displaced fractures identified. IMPRESSION: No acute intrathoracic abnormalities.
[2025-02-06 16:35] LABS: Absolute Lymphocytes (CBC) 1.7 K/uL (0.7-4.9); Hematocrit 36.7 % (36.0-45.0); Hemoglobin 12.6 g/dL (12.0-15.0); MCH 29.3 pg (27.0-35.0); MCHC 34.4 g/dL (32.0-36.0); MCV 85.3 fL (80-100); MPV 8.6 fL (7.6-11.3); Nucleated RBC Absolute Count 0.0 (0-0); Nucleated Red Blood Cells % 0.0 % (0-0); RBC Red Blood Cell Count 4.31 M/uL (3.86-4.86); White Blood Count 5.80 thou/uL (4.3-10.9)
[2025-02-06 16:43] LABS: PT Prothrombin Time 11.5 SECONDS (10-13.0); Protime INR 1.02
[2025-02-06] MEDS ORDERED: METOPROLOL TAR 25 MG TAB ONE (16:48)
[2025-02-06] MEDS ORDERED: METOPROLOL TARTRATE 5 MG/5 ML INJ IV ONE (16:48)
[2025-02-06] MEDS ORDERED: DIGOXIN 0.25 MG/ML AMP ONE (16:48)
[2025-02-06] MEDS ORDERED: NA CHLORIDE 0.9% 1,000 ML ONE (16:49)
[2025-02-06] MEDS ORDERED: MAGNESIUM SULFATE 1 gm IVPB 1 GM/100 ML BAG IV ONE (16:49)
[2025-02-06 16:59] LABS: ALT/SGPT 22 U/L (13-56); AST/SGOT 13 U/L (15-37); Albumin 3.8 g/dL (3.4-5.0); Albumin/Globulin Ratio 1.4 (1.1-1.8); Alkaline Phosphatase 79 U/L (45-117); Anion Gap 9.1 mEq/L (5.0-15.0); BUN Blood Urea Nitrogen 22 mg/dL (7-18); Globulin 2.7 g/dL (2.3-3.5); Glucose Level 113 mg/dL (74-106); Magnesium 2.2 mg/dL (1.6-2.4); NT PRO-BNP 1027 pg/mL (<125); Potassium 4.1 mEq/L (3.5-5.1); Troponin High Sensitivity 13.8 pg/mL (<58.9)
[2025-02-06 17:00] LABS: Bilirubin Indirect, Calculated 0.3 mg/dL (0.2-0.8)
--- NOTE | 2025-02-06 17:18 | EDPHYS ---
Physician Documentation [facility] Name: Porfirio Headley Age: 75 yrs Sex: Female : 1950 Arrival Date: 02/06/2025 Time: 15:54 Bed 8 Private MD: ED Physician Enrique Bowers HPI: 02/06 16:17 This 75 yrs old Female presents to ER via Ambulatory with complaints of Elevated heart sb4 rate. 16:17 Patient states that she checked her vital signs yesterday and noted that her heart rate sb4 was in the 140s. She checked it again today and it was similarly elevated. She denies any pain or palpitations. Denies any prior episodes or diagnoses of heart arrhythmias. Does have a history of hypertension in which she reports compliance with her medications. States about 1 week ago she started taking chromium drops as a supplement but otherwise has had no recent changes in medications. Historical: - Allergies: 16:07 Cleocin; jb4 16:07 Codeine; jb4 16:07 PENICILLINS; jb4 - PMHx: 16:07 Fibromyalgia; Hypothyroidism; lymes disease; Sjogren's Syndrome; jb4 - PSHx: 16:07 back X 2; right shoulder (back X 2); jb4 - Immunization history:: Adult Immunizations not up to date. - Infectious Disease History:: Denies. - Social history:: Smoking status: Patient denies any tobacco usage or history of. ROS: 16:17 Constitutional: Negative for fever, chills, and weight loss, sb4 16:17 All other systems are negative, Exam: 16:17 Constitutional: This is a well developed, well nourished patient who is awake, alert, sb4 and in no acute distress. Head/Face: Normocephalic, atraumatic. Eyes: Extra-ocular motions intact. Periorbital areas with no swelling, redness, or edema. ENT: Mucous membranes moist. Respiratory: No increased work of breathing, no retractions or nasal flaring. Abdomen/GI: Soft, non-tender, no distension. Skin: Warm, dry with normal turgor. Normal color with no rashes, no lesions, and no evidence of cellulitis. 16:17 Cardiovascular: Rate: tachycardic, Rhythm: regular, Vital Signs: 16:06 BP 160 / 90; Pulse 145; Resp 16; Temp 97.4(TE); Pulse Ox 95% on R/A; Weight 84.37 kg jb4 (R); Height 5 ft. 6 in. (R); Pain 0/10; 16:30 BP 154 / 78; Pulse 142; Resp 16; ar8 17:30 BP 153 / 103; Pulse 96; Resp 16 S; Pain 0/10; ar8 18:30 BP 158 / 84; Pulse 66; Resp 15 S; Pain 0/10; ar8 19:36 BP 156 / 72; Pulse 67; Resp 16; Pulse Ox 96% ; cp4 20:44 BP 163 / 64; Pulse 67; Resp 17; Pulse Ox 96% ; cp4 16:06 Body Mass Index 30.02 (84.37 kg, 167.64 cm) jb4 16:06 Pain Scale: Adult jb4 17:30 Pain Scale: Adult ar8 18:30 Pain Scale: Adult ar8 MDM: 16:01 Medical Screening Exam initiated sb4 16:19 Differential diagnosis: arrythmia, dehydration, stress disorder. 4 16:42 Data reviewed: vital signs, nurses notes, lab test result(s), EKG, radiologic studies, sb4 I have discussed the patient's presentation/case with the attending Emergency Department Physician; and as a result, I will admit patient. Consideration of Admission/Observation Patient was admitted/placed on observation. Care significantly affected by the following chronic conditions: Hypertension. Counseling: I had a detailed discussion with the patient and/or guardian regarding the historical points, exam findings, and any diagnostic results supporting the discharge/admit diagnosis, the presence of at least one elevated blood pressure reading (>120/80) during this emergency department visit, lab results, radiology results, the need for further work-up and treatment in the hospital. 17:54 Admission orders: after a detailed discussion of the patient's condition and case, the [facility] [place] orders are written by me. 19:18 Awaiting: admit orders. Hospitalist larry was contacted at 1717 regarding admission, sb4 no response was given until 1751, told to pass on night hospitalistTashi Gaines NP was contacted at 1812 regarding admission, no response. . 02/06 16:07 Order name: Basic Metabolic Panel; Complete Time: 17:03 sb4 02/06 16:07 Order name: CBC with Diff; Complete Time: 16:42 sb4 02/06 16:07 Order name: LFT's; Complete Time: 17:03 sb4 02/06 16:07 Order name: Magnesium; Complete Time: 17:03 sb4 02/06 16:07 Order name: NT PRO-BNP; Complete Time: 17:03 sb4 02/06 16:07 Order name: PT-INR; Complete Time: 16:48 sb4 02/06 16:07 Order name: Troponin HS; Complete Time: 17:03 sb4 02/06 16:29 Order name: TSH; Complete Time: 17:08 sb4 02/06 20:20 Order name: CBC with Automated Diff EDMS 02/06 20:20 Order name: CBC with Automated Diff EDMS 02/06 20:20 Order name: CBC with Automated Diff EDMS 02/06 20:20 Order name: Comprehensive Metabolic Panel EDMS 02/06 20:20 Order name: Comprehensive Metabolic Panel EDMS 02/06 20:20 Order name: Comprehensive Metabolic Panel EDMS 02/06 20:20 Order name: Magnesium EDMS 02/06 20:20 Order name: Magnesium EDMS 02/06 20:20 Order name: Magnesium EDMS 02/06 16:07 Order name: XRAY Chest (1 view); Complete Time: 16:30 sb4 02/06 20:22 Order name: Echo with Doppler EDMS 02/06 20:22 Order name: Echo with Doppler EDMS 02/06 17:15 Order name: EKG; Complete Time: 17:16 sb4 02/06 16:07 Order name: Cardiac monitoring; Complete Time: 16:29 sb4 02/06 16:07 Order name: EKG - Nurse/Tech; Complete Time: 16:29 sb4 02/06 16:07 Order name: IV Saline Lock; Complete Time: 16:29 sb4 02/06 16:07 Order name: Labs collected and sent; Complete Time: 16:29 sb4 02/06 16:07 Order name: O2 Per Protocol; Complete Time: 16:29 sb4 02/06 16:07 Order name: O2 Sat Monitoring; Complete Time: 16:29 sb4 02/06 17:15 Order name: EKG - Nurse/Tech; Complete Time: 18:37 sb4 EC:31 Rate is 144 beats/min. Rhythm is irregular, A flutter with 2:1. QRS interval is normal sb4 at 88 msec. QT interval is normal at 342 msec. Clinical impression: Atrial Flutter. Interpreted by me. Reviewed by me. 18:38 Rate is 67 beats/min. Rhythm is irregularly irregular, A fib. QRS interval is normal at sb4 90 msec. QT interval is normal at 398 msec. No Q waves. Clinical impression: Atrial Fibrillation. Interpreted by me. Reviewed by me. Administered Medications: 16:58 Drug: Metoprolol PO 25 mg PO once Route: PO; ar8 18:12 Follow up: Response: No adverse reaction ar8 17:00 Drug: Digoxin IVP 0.5 mg IVP once Route: IVP; Site: right antecubital; ar8 17:30 Follow up: Response: No adverse reaction; Cardiac rhythm changed ar8 17:00 Drug: NS 0.9% IV 1000 ml IV at 1 bolus Per protocol; to be given as a bolus over 60 ar8 minutes Route: IV; Rate: 1 bolus; Site: right antecubital; 18:10 Follow up: IV Status: Completed infusion; IV Intake: 1000ml ar8 17:06 Drug: Magnesium Sulfate IVPB 1 grams IVPB once over 1 hrs Route: IVPB; Infused Over: 1 ar8 hrs; Site: right antecubital; 18:10 Follow up: Response: No adverse reaction; IV Status: Completed infusion; IV Intake: ar8 100ml 18:12 Not Given (ERP notified. HR \T\ rhythm responded to other medication. ): metoprolol5 mg ar8 IVP every 5 minutes; Hold for SBP < 100 or HR < 60. x3 18:36 Drug: Enoxaparin Sub-Q 1 mg/kg Sub-Q once {Note: administered 80mg per VO from bryson Anderson PA-C.} Route: Sub-Q; Site: right lower abdomen; 18:42 Follow up: Response: No adverse reaction ar8 Disposition Summary: 02/06/25 17:17 Hospitalization Ordered Notes: Hospitalization Status: Inpatient Admission sb4 Provider: Prince fredi Velasco Location: Telemetry/[facility]Sur (Inpatient) sb4 Condition: Fair sb4 Problem: new sb4 Symptoms: have improved sb4 Bed/Room Type: Standard sb4 Room Assignment: 209(02/06/25 20:36) rv1 Diagnosis - Atrial fibrillation - new onset sb4 Forms: - Medication Reconciliation Form sb4 - SBAR form sb4 - Leadership Thank You Letter sb4 Critical care time excluding procedures: 17:16 Critical care time: Bedside Care: 25 minutes, Consultation: 10 minutes, Family sb4 Intervention: 5 minutes. Total time: 40 minutes Addendum: 02/12/2025 15:43 Co-signature as Attending Physician, Enrique Bowers MD I agree with the assessment and c flores plan of care. Signatures: Dispatcher [employer] EDMD Enrique Bowers MD MD cha Bryson, James, RN RN jb4 Luz Hackett, PA-C PA-C sb4 Edith Mac rv1 Duy Watson, RN RN ar8 Corrections: (The following items were deleted from the chart) 02/06 16:08 16:08 Chest Single View+RAD.RAD.BRZ ordered. [facility] 17:55 16:19 Differential diagnosis: sb4 sb4 20:36 17:17 sb4 rv1
--- NOTE | 2025-02-06 17:18 | ER ---
Nurse's Notes [facility] Name: Porfirio Headley Age: 75 yrs Sex: Female : 1950 Arrival Date: 02/06/2025 Time: 15:54 Bed 8 Private MD: Diagnosis: Atrial fibrillation - new onset Presentation: 02/06 16:06 Chief complaint: Patient states: My heart rate has been in the 140's since yesterday jb4 afternoon. Coronavirus screen: At this time, the client does not indicate any symptoms associated with coronavirus-19. Ebola Screen: No symptoms or risks identified at this time. Initial Sepsis Screen: Does the patient meet any 2 criteria? HR > 90 bpm. Yes Does the patient have a suspected source of infection? No. Patient's initial sepsis screen is negative. Risk Assessment: Do you want to hurt yourself or someone else? Patient reports no desire to harm self or others. Onset of symptoms was February 05, 2025. Transition of care: patient was not received from another setting of care. 16:06 Method Of Arrival: Ambulatory jb4 16:06 Acuity: NATA 2 jb4 Historical: - Allergies: 16:07 Cleocin; jb4 16:07 Codeine; jb4 16:07 PENICILLINS; jb4 - PMHx: 16:07 Fibromyalgia; Hypothyroidism; lymes disease; Sjogren's Syndrome; jb4 - PSHx: 16:07 back X 2; right shoulder (back X 2); jb4 - Immunization history:: Adult Immunizations not up to date. - Infectious Disease History:: Denies. - Social history:: Smoking status: Patient denies any tobacco usage or history of. Screenin:30 [facility] ED Fall Risk Assessment (Adult) History of falling in the last 3 months, ar8 including since admission No falls in past 3 months (0 pts) Confusion or Disorientation No (0 pts) Intoxicated or Sedated No (0 pts) Impaired Gait No (0 pts) Mobility Assist Device Used No (0 pt) Altered Elimination No (0 pt) Score/Fall Risk Level 0 - 2 = Low Risk. Abuse screen: Denies threats or abuse. Nutritional screening: No deficits noted. Tuberculosis screening: No symptoms or risk factors identified. Assessment: 16:16 General: Appears in no apparent distress. comfortable, Behavior is calm, cooperative. ar8 16:16 Pain: Denies pain. Neuro: No deficits noted. Level of Consciousness is awake, alert, ar8 obeys commands, Oriented to person, place, time, situation. Cardiovascular: Reports palpitations, Denies chest pain, Capillary refill < 3 seconds is brisk Patient's skin is warm and dry. Pulses are 4+ in right radial artery and left radial artery. Respiratory: No deficits noted. Airway is patent Respiratory effort is even, unlabored, Respiratory pattern is regular, symmetrical. GI: No deficits noted. Reports normal bowel habits. 19:36 Reassessment: Patient appears in no apparent distress at this time. No changes from 4 previously documented assessment. Patient and/or family updated on plan of care and expected duration. Pain level reassessed. Patient is alert, oriented x 3, equal unlabored respirations, skin warm/dry/pink. Vital Signs: 16:06 BP 160 / 90; Pulse 145; Resp 16; Temp 97.4(TE); Pulse Ox 95% on R/A; Weight 84.37 kg jb4 (R); Height 5 ft. 6 in. (R); Pain 0/10; 16:30 BP 154 / 78; Pulse 142; Resp 16; ar8 17:30 BP 153 / 103; Pulse 96; Resp 16 S; Pain 0/10; ar8 18:30 BP 158 / 84; Pulse 66; Resp 15 S; Pain 0/10; ar8 19:36 BP 156 / 72; Pulse 67; Resp 16; Pulse Ox 96% ; cp4 20:44 BP 163 / 64; Pulse 67; Resp 17; Pulse Ox 96% ; cp4 16:06 Body Mass Index 30.02 (84.37 kg, 167.64 cm) jb4 16:06 Pain Scale: Adult jb4 17:30 Pain Scale: Adult ar8 18:30 Pain Scale: Adult ar8 ED Course: 15:58 Patient arrived in ED. mr 15:59 [facility] Hackett [facility]. sb4 15:59 Enrique Bowers MD is Attending Physician. sb4 16:07 Triage completed. jb4 16:07 Arm band placed on right wrist. jb4 16:23 No provider procedures requiring assistance completed. Inserted saline lock: 20 gauge ar8 in right antecubital area, using aseptic technique. Blood collected. Flushed with 10 mL NS. 16:25 XRAY Chest (1 view) In Process Unspecified. EDMS 16:25 EKG done, by ED staff, reviewed by Luz Hackett PA-C. ar8 16:30 Bed in low position. Call light in reach. Side rails up X2. Provided Education on: plan ar8 of care, diagnostics, and estimated wait time. . 16:31 Duy Watson RN is Primary Nurse. ar8 17:17 Prince Velasco MD is Hospitalizing Provider. sb4 18:40 EKG done, by ED staff, reviewed by Luz Hackett PA-C. ar8 21:35 Patient admitted, IV remains in place. cp4 Administered Medications: 16:58 Drug: Metoprolol PO 25 mg PO once Route: PO; ar8 18:12 Follow up: Response: No adverse reaction ar8 17:00 Drug: Digoxin IVP 0.5 mg IVP once Route: IVP; Site: right antecubital; ar8 17:30 Follow up: Response: No adverse reaction; Cardiac rhythm changed ar8 17:00 Drug: NS 0.9% IV 1000 ml IV at 1 bolus Per protocol; to be given as a bolus over 60 ar8 minutes Route: IV; Rate: 1 bolus; Site: right antecubital; 18:10 Follow up: IV Status: Completed infusion; IV Intake: 1000ml ar8 17:06 Drug: Magnesium Sulfate IVPB 1 grams IVPB once over 1 hrs Route: IVPB; Infused Over: 1 ar8 hrs; Site: right antecubital; 18:10 Follow up: Response: No adverse reaction; IV Status: Completed infusion; IV Intake: ar8 100ml 18:12 Not Given (ERP notified. HR \T\ rhythm responded to other medication. ): metoprolol5 mg ar8 IVP every 5 minutes; Hold for SBP < 100 or HR < 60. x3 18:36 Drug: Enoxaparin Sub-Q 1 mg/kg Sub-Q once {Note: administered 80mg per VO from bryson Anderson PA-C.} Route: Sub-Q; Site: right lower abdomen; 18:42 Follow up: Response: No adverse reaction ar8 Medication: 16:30 VIS not applicable for this client. ar8 Intake: 18:10 IV: 100ml; Total: 100ml. ar8 18:10 IV: 1000ml; Total: 1100ml. ar8 Outcome: 17:17 Decision to Hospitalize by Provider. sb4 21:35 Admitted to Med/surg via wheelchair, room 209, cp4 21:35 Condition: stable 21:35 Instructed on the need for admit, 21:35 Patient left the ED. cp4 Signatures: Dispatcher [employer] EDMS Chandrika Sparks, Reg Reg mr Alexandre Gillespie, RN RN Luz Mendieta PAIvan PA-C chelo4 Janine Cabrales cp4 Duy Watson RN RN ar8
[2025-02-06] MEDS ORDERED: ENOXAPARIN 80 MG/0.8 ML SQ ONE (18:26)
[2025-02-06] MEDS ORDERED: ACETAMINOPHEN 325 MG TABLET PO PRN (20:15)
[2025-02-06] MEDS ORDERED: clonazePAM 0.5 MG TAB PO PRN (20:22)
[2025-02-06] MEDS ORDERED: ONDANSETRON 4 MG/2 ML VIAL IV PRN (20:28)
--- NOTE | 2025-02-06 20:32 | P.HP ---
Certification for Inpatient Patient admitted to: Inpatient With expected LOS: >2 Midnights Patient will require the following post-hospital care: None Practitioner: I am a practitioner with admitting privileges, knowledge of patient current condition, hospital course, and medical plan of care. Services: Services provided to patient in accordance with Admission requirements found in Title 42 Section 412.3 of the Code of Federal Regulations <Nathan Gaines - Last Filed: 02/07/25 05:52> Patient History Date of Service: 02/06/25 Reason for admission: New onset A-fib with RVR. History of Present Illness: Patient is a pleasant 75-year-old female with past medical history of fibromyalgia, hypothyroidism, panic disorder, Lyme's disease, Sjogren syndrome, essential hypertension, who presents to the ER today complaining of elevated heart rate with no associated chest pain or shortness of breath. Patient states while she was at home yesterday, she checked her vital signs and noted that her heart rate was 144, states her heart rate consistently stayed in the 140s all day yesterday and today which then prompted her to report to the ER. Patient states during these episodes she did not have any chest pain, palpitation, or shortness of breath. Denies of any prior history of heart arrhythmia, or elevated heart rate. When patient arrived in the ER, she was in A-fib with RVR, with initial heart rate 140, patient received digoxin 0.5 mg, metoprolol 25 mg p.o., metoprolol 5 mg IV. Patient rate immediately controlled but still remains atrial fibrillation. Course in ER: Patient had chest x-ray, with impression: No acute intrathoracic abnormalities. - Past Medical/Surgical History Diabetic: No -: Essential hypertension. -: Fibromyalgia. -: Hypothyroidism. -: Sjogren syndrome. -: Lyme's disease. -: Anxiety disorder. -: Appendectomy. -: Rhinoplasty (deviated septum). -: Partial hysterectomy. -: Removal of benign left breast mass. -: Rotator cuff repair right. -: Bilateral carpal tunnel repair. -: Discectomy and fusion C4-C6. -: Removal 2 basal cell carcinoma right lower leg and left forearm. - Family History Sister -: Heart disease, Hypertension, Other (see notes) (Atrial fibrillation.) - Social History Smoking Status: Never smoker Alcohol use: No CD- Drugs: No Caffeine use: Yes Place of Residence: Home <TitokirbyNathan - Last Filed: 02/07/25 05:52> Date of Service: 02/06/25 <Alonso Pablo - Last Filed: 02/18/25 04:49> Allergies clindamycin [From Cleocin] Allergy (Verified 02/06/25 23:30) Anaphylaxis codeine Allergy (Verified 02/06/25 23:30) Nausea/Vomiting Penicillins Allergy (Verified 02/06/25 23:30) Hives/Rash Home Medications: Buspirone HCl [Buspar*] 5 mg PO BID 07/14/24 Duloxetine [Cymbalta *] 60 mg PO DAILY 07/14/24 Hydrocodone Bit/Acetaminophen [[place] 10-325 Tablet] 1 tab PO TID PRN 07/14/24 Levocetirizine Dihydrochloride [Xyzal] 5 mg PO BEDTIME 07/14/24 Levothyroxine Sodium 100 mcg PO DAILY 07/14/24 Ondansetron [Zofran (Odt)*] 4 mg PO DAILY PRN 07/14/24 Perfluorohexyloctane/Pf [Miebo 100% Eye Drop] 3 mg EACH EYE BID 07/14/24 clonazePAM [Clonazepam] 0.5 mg PO DAILY PRN 07/14/24 Ipratropium [Atrovent 0.03% (21MCG)/[place] Nasal*] 1 sprays NS BID 02/06/25 Tizanidine [Zanaflex*] 4 mg PO BID 02/06/25 Amiodarone HCl [Cordarone*] 200 mg PO BID #60 tab 02/08/25 Losartan Potassium [Cozaar*] 50 mg PO DAILY #30 tab 02/08/25 Metoprolol Tartrate [Lopressor*] 25 mg PO TID #90 tab 02/08/25 Apixaban [Eliquis] 1 tab PO BID 02/16/25 Review of Systems 10-point ROS is otherwise unremarkable Cardiovascular: Other (Elevated heart rate) <EderNathan - Last Filed: 02/07/25 05:52> Physical Examination - Physical Exam General: Alert, Oriented x3, Cooperative HEENT: Atraumatic, Normocephalic, PERRLA, Mucous membr. moist/pink, Sclerae nonicteric Neck: Supple, 2+ carotid pulse no bruit, JVD not distended, No Thyromegaly, Without JVD or thyroid abnormality Respiratory: Clear to auscultation bilaterally, Normal air movement Cardiovascular: No edema, Normal pulses, No gallops, No rubs, No murmurs, Irregular heart rate/rhythm (New onset A-fib with RVR.) Capillary refill: >2 Seconds Gastrointestinal: Soft and benign, Non-distended, W/out hepatomegaly, No ascites, No tenderness, No masses, No rebound, No guarding Musculoskeletal: No clubbing, No swelling, No contractures, No erythema, No tenderness, No warmth Integumentary: No rashes, No breakdown, No significant lesion, No tenderness/swelling, No erythema, No warmth, No cyanosis Neurological: Normal gait, Normal speech, Normal strength at 5/5 x4 extr, Normal tone, Sensation intact, Cranial nerves 3-12 intact, Normal reflexes 2+, Normal affect Lymphatics: No axilla or inguinal lymphadenopathy - Studies Laboratory Data (last 24 hrs) 02/06/25 02/06/25 02/06/25 16:23 16:23 16:23 WBC 5.80 Hgb 12.6 Hct 36.7 Plt Count 254 PT 11.5 INR 1.02 Sodium 139 Potassium 4.1 BUN 22 H Creatinine 0.96 Glucose 113 H Magnesium 2.2 Total Bilirubin 0.5 AST 13 L ALT 22 Alkaline Phosphatase 79 <Nathan Gaines - Last Filed: 02/07/25 05:52> Female Exam - Breasts Breasts: Normal configuration <Nathan Gaines - Last Filed: 02/07/25 05:52> Assessment and Plan - Plan Patient is a pleasant 75-year-old female who reports to the ER complaining of elevated heart rate with no associated chest pain or shortness of breath. Patient diagnosed with new onset A-fib with RVR. (1)New onset A-fib with RVR. Patient received digoxin 0.5 mg, metoprolol 25 mg p.o., and metoprolol 5 mg IV in ER with rate controlled but still remains A-fib. Patient also received loading dose of Lovenox 1:1.-80 mg -Order for echocardiogram. -Consult telecommunications network planner. -Started amiodarone low-dose 100 mg p.o. twice daily at this time. Patient dose might need to be optimized based on her Afib and rate. -Telemetry. (2)Chronic hypothyroidism. -Continue home medication levothyroxine 100 mcg p.o. daily. (3)Chronic essential hypertension. -Continue home medication losartan 100 mg p.o. daily. (4)Chronic panic anxiety disorder. - Continue home medication duloxetine 60 mg p.o. daily. -Continue home medication BuSpar 5 mg p.o. daily. (5)Explained the entire treatment plan to the patient, and significant other present at the bedside, solicit questions answered and voiced understanding. Discharge Plan: Home Plan to discharge in: Greater than 2 days - Advance Directives Does patient have a Living Will: Yes Does patient have a Durable POA for Healthcare: Yes - Code Status/Comfort Care Code Status Assessed: Yes Code Status: Full Code Critical Care: No Time Spent Managing Pts Care (In Minutes): 55 <Nathan Gaines - Last Filed: 02/07/25 05:52> Date of Service: 02/06/25 Chart has been reviewed. Events of the last 24 hours have been noted. Case discussed with [facility]. I performed a substantial part of the MDM during this patient's care today. I personally made or approved the documented management plan and acknowledge its risk of complications. I agree with the findings and documentation provided in the [facility]'s notes <Alonso Pablo - Last Filed: 02/18/25 04:49>
[2025-02-06 21:55] VITALS: BMI 29.9
[2025-02-06] MEDS: TIZANIDINE 4 MG TABLET PO SCH (22:26)
[2025-02-06] MEDS: BUSPIRONE HCL 5 MG TABLET PO SCH (22:26)
[2025-02-06] MEDS: HYDROCODONE/APAP 5/325 MG TAB PO PRN (23:00)
[2025-02-07] MEDS: LEVOTHYROXINE SOD 0.1 MG TAB PO SCH (05:34)
[2025-02-07 07:06] LABS: Absolute Lymphocytes (CBC) 2.2 K/uL (0.7-4.9); Hematocrit 35.7 % (36.0-45.0); Hemoglobin 11.8 g/dL (12.0-15.0); MCH 28.9 pg (27.0-35.0); MCHC 33.2 g/dL (32.0-36.0); MCV 87.1 fL (80-100); MPV 9.7 fL (7.6-11.3); Nucleated RBC Absolute Count 0.0 (0-0); Nucleated Red Blood Cells % 0.1 % (0-0); RBC Red Blood Cell Count 4.10 M/uL (3.86-4.86); White Blood Count 6.20 thou/uL (4.3-10.9)
[2025-02-07 07:27] LABS: ALT/SGPT 26.0 U/L (13-56); AST/SGOT 16.0 U/L (15-37); Albumin 3.5 g/dL (3.4-5.0); Albumin/Globulin Ratio 1.3 (1.1-1.8); Alkaline Phosphatase 66.0 U/L (45-117); Anion Gap 7.9 mEq/L (5.0-15.0); BUN Blood Urea Nitrogen 21.0 mg/dL (7-18); Globulin 2.7 g/dL (2.3-3.5); Glucose Level 105.0 mg/dL (74-106); Magnesium 2.6 mg/dL (1.6-2.4); Potassium 3.9 mEq/L (3.5-5.1)
[2025-02-07] MEDS: LOSARTAN POTASSIUM 50 MG TABLET PO SCH (08:42)
[2025-02-07] MEDS: DULOXETINE 30 MG CAP PO SCH (08:42)
[2025-02-07] MEDS: AMIODARONE HCL 200 MG TAB PO SCH (08:43)
[2025-02-07] MEDS: ENOXAPARIN 40 MG/0.4 ML SQ SCH (08:43)
[2025-02-07] MEDS: DIGOXIN 0.25 MG/ML AMP IV SCH (14:14)
[2025-02-07] MEDS: METOPROLOL TARTRATE 5 MG/5 ML INJ IV STA (14:14)
--- NOTE | 2025-02-07 20:28 | CON ---
Date of Consultation: 02/07/2025 Reason For Consultation: Atrial fibrillation new onset. History Of Present Illness: A 75-year-old female, history of fibromyalgia, hypothyroidism, Lyme dise ase, hypertension, Sjogren syndrome, who presented to the emergency room with palpitations. Denied h aving any chest pain or shortness of breath. She was in AFib with RVR, heart rate in the 140s range. She has received digoxin, metoprolol, and she is currently in sinus rhythm, asymptomatic. Past Medical History: As outlined above in the HPI. Medication: Refer reconciliation sheet for detailed list. Allergies: CLINDAMYCIN, CODEINE, PENICILLIN. Family History: No premature coronary artery disease or cancer. Social History: She does not smoke or drink. Does not use any drugs. Review of Systems: All systems reviewed and they were negative except as mentioned in the HPI. Physical Examination: Vital Signs: Reviewed. Head and Neck: Pupils are equal, reactive to light. Intact eye movements. No JVD. No cervical lym phadenopathy. Neck is supple. Thyroid is not enlarged. Lungs: Clear to auscultation bilaterally. No rhonchi, wheezing, or crackles. No accessory muscle u se. Heart: Regular rate and rhythm. No extra sounds. Abdomen: Soft, nontender. Bowel sounds positive. No organomegaly. No masses or hernia. No rigidi ty or rebound. Extremities: No edema, clubbing, or cyanosis. Intact pulses. Skin: No rash. Neurologic: Alert, awake, and oriented x3. No acute focal deficits appreciated. Investigations: BUN 21, creatinine 1.05, hemoglobin is 11.8, and the TSH is 1.39. Assessment And Recommendation: 1. Atrial fibrillation with rapid ventricular response, currently is in sinus rhythm. Recommend to s tart Eliquis 5 mg twice a day, metoprolol 25 mg twice a day, she could be discharged on both and to juliet larry up with me in the office early next week. I would discontinue amiodarone. 2. Elevated NT-proBNP, likely congestive heart failure. We will obtain an echo as an outpatient on h er and stress test and plan accordingly, but this will be done as an outpatient basis. 3. Hypertension. Blood pressure is controlled. Continue current therapy. The patient discussed wit h the primary hospitalist. From Cardiology standpoint can be released today. SR/MODL Voice ID: [id number] Report ID: [id number]
[2025-02-08 00:50] VITALS: O2SAT 99
[2025-02-08 06:20] LABS: Absolute Lymphocytes (CBC) 1.5 K/uL (0.7-4.9); Hematocrit 34.9 % (36.0-45.0); Hemoglobin 11.6 g/dL (12.0-15.0); MCH 28.8 pg (27.0-35.0); MCHC 33.2 g/dL (32.0-36.0); MCV 86.6 fL (80-100); MPV 9.5 fL (7.6-11.3); Nucleated RBC Absolute Count 0.0 (0-0); Nucleated Red Blood Cells % 0.1 % (0-0); RBC Red Blood Cell Count 4.02 M/uL (3.86-4.86); White Blood Count 5.50 thou/uL (4.3-10.9)
[2025-02-08 06:43] LABS: ALT/SGPT 25 U/L (13-56); Albumin 3.2 g/dL (3.4-5.0); Albumin/Globulin Ratio 1.2 (1.1-1.8); Alkaline Phosphatase 65 U/L (45-117); Anion Gap 6.0 mEq/L (5.0-15.0); BUN Blood Urea Nitrogen 19 mg/dL (7-18); Globulin 2.6 g/dL (2.3-3.5); Glucose Level 104 mg/dL (74-106); Magnesium 2.2 mg/dL (1.6-2.4); Potassium 4.0 mEq/L (3.5-5.1)
[2025-02-08 06:47] LABS: AST/SGOT < 10 U/L (15-37)
[2025-02-08] MEDS: AMIODARONE HCL 200 MG TAB PO ONE (12:52)
[2025-02-08] MEDS: METOPROLOL TARTRATE 5 MG/5 ML INJ IV STA (12:52)
[2025-02-08] MEDS ORDERED: HOME MED 1 EA UNK (Levocetirizine Dihydrochloride [Xyzal] 5 MG Tablet) PO PRN (13:52)
[2025-02-08] MEDS ORDERED: HYDROCODONE/APAP 10/325 TAB PO PRN (13:52)
[2025-02-08] MEDS ORDERED: TIZANIDINE 4 MG TABLET PO PRN (13:52)
[2025-02-08] MEDS ORDERED: DOCUSATE NA 100 MG CAP PO PRN (13:52)
[2025-02-08] MEDS ORDERED: CETIRIZINE HCL 5 MG TABLET PO PRN (14:23)
[2025-02-08 14:25] VITALS: TEMP 97.9
[2025-02-08] MEDS: METOPROLOL TAR 25 MG TAB PO SCH (14:42)
[2025-02-08 14:43] VITALS: BP 155/82
[2025-02-08] MEDS ORDERED: IPRATROPIUM NAS SCH (21:00)
[2025-02-08] MEDS ORDERED: BUSPIRONE HCL 5 MG TABLET PO SCH (21:00)
[2025-02-08] MEDS ORDERED: PERFLUOROHEXYLOCTANE OPTH SCH (21:00)
[2025-02-08] MEDS ORDERED: AMIODARONE HCL 200 MG TAB PO SCH (21:00)
[2025-02-08] MEDS ORDERED: clonazePAM 0.5 MG TAB PO SCH (21:00)
[2025-02-09] MEDS ORDERED: LEVOTHYROXINE SOD 0.1 MG TAB PO SCH (06:30)
[2025-02-09] MEDS ORDERED: ONDANSETRON 4 MG (ODT) TAB PO SCH (09:00)
[2025-02-09] MEDS ORDERED: DULOXETINE 30 MG CAP PO SCH (09:00)
== END 2025-02-08 16:15 | disposition home or self-care (01) | DRG 309 ==
LOC: ER 15:54 → ERHOLD 20:13 → 2ND 20:54
PROVIDERS: ADMIT Hospitalist; ATTEND Hospitalist
DX: I48.91 Unspecified atrial fibrillation (principal); A69.20 Lyme disease, unspecified; Z88.1 Allergy status to other antibiotic agents; Z88.5 Allergy status to narcotic agent; Z88.0 Allergy status to penicillin; Z79.899 Other long term (current) drug therapy; Z79.891 Long term (current) use of opiate analgesic; M79.7 Fibromyalgia; E03.9 Hypothyroidism, unspecified; M35.00 Sjogren syndrome, unspecified; I10 Essential (primary) hypertension; F41.9 Anxiety disorder, unspecified; Z98.890 Other specified postprocedural states; Z90.711 Acquired absence of uterus with remaining cervical stump; Z98.1 Arthrodesis status
CPT/HCPCS: 36415; 71045; 80048; 80053; 80076; 83735; 83880; 84443; 84484; 85025; 85610; 93005; 96365; 96372; 96375; 99285; J1160; J1650; J3475; J7030

== ENCOUNTER 2025-02-15 21:36 | Inpatient (IN) | payer OTHER ==
[2025-02-15 22:26] LABS: PT Prothrombin Time 17.8 SECONDS (10-13.0); Protime INR 1.6
[2025-02-15 22:27] LABS: Absolute Lymphocytes (CBC) 2.2 K/uL (0.7-4.9); Hematocrit 31.6 % (36.0-45.0); Hemoglobin 10.7 g/dL (12.0-15.0); MCH 29.5 pg (27.0-35.0); MCHC 34.0 g/dL (32.0-36.0); MCV 86.9 fL (80-100); MPV 9.5 fL (7.6-11.3); Nucleated RBC Absolute Count 0.0 (0-0); Nucleated Red Blood Cells % 0.1 % (0-0); RBC Red Blood Cell Count 3.64 M/uL (3.86-4.86); White Blood Count 9.00 thou/uL (4.3-10.9)
--- NOTE | 2025-02-15 22:31 | RAD REPORT ---
EXAM: Chest Single View HISTORY: 75 years Female hypotension, bradycardia COMPARISON: 02/06/2025 FINDINGS: LUNGS/PLEURA: The lungs are clear. No pleural effusions or pneumothorax. No pulmonary edema. CARDIAC/MEDIASTINUM: The cardiac silhouette is within normal limits. UPPER ABDOMEN: No significant abnormality. BONES: No acute abnormality. ACDF in the cervical spine. LINES/TUBES/OTHER: N/A IMPRESSION: No evidence of acute cardiopulmonary disease. No significant change from prior.
[2025-02-15 22:40] LABS: ALT/SGPT 89 U/L (13-56); AST/SGOT 48 U/L (15-37); Albumin 3.5 g/dL (3.4-5.0); Albumin/Globulin Ratio 1.4 (1.1-1.8); Alkaline Phosphatase 77 U/L (45-117); Anion Gap 8.4 mEq/L (5.0-15.0); BUN Blood Urea Nitrogen 35 mg/dL (7-18); Globulin 2.5 g/dL (2.3-3.5); Glucose Level 110 mg/dL (74-106); Magnesium 2.2 mg/dL (1.6-2.4); NT PRO-BNP 1251 pg/mL (<125); Potassium 4.4 mEq/L (3.5-5.1); Troponin High Sensitivity 13.4 pg/mL (<58.9)
[2025-02-15 22:41] LABS: Bilirubin Indirect, Calculated 0.3 mg/dL (0.2-0.8)
--- NOTE | 2025-02-15 22:49 | EDPHYS ---
Physician Documentation [facility] Name: Porfirio Headley Age: 75 yrs Sex: Female : 1950 Arrival Date: 02/15/2025 Time: 21:36 Bed 19 Private MD: ED Physician Steve Downey HPI: 02/15 22:24 This 75 yrs old Female presents to ER via Wheelchair with complaints of Altered Mental ms3 Status, Dizziness, LOW BLOOD PRESSURE, BP was 66/41 at home approx 1 hour ago at home. 22:24 75-year-old female with past medical history of hypothyroidism, Lyme's disease, ms3 fibromyalgia, Sjogren's syndrome, atrial fibrillation, hypertension presents to the emergency department for low blood pressure that began 2 hours ago. Patient states at home her blood pressure was 60/40 and she was not sure if that was correct. Patient also had episode of altered mental status that has since resolved. Patient notes that she has had dizziness for 2 days and pain in her right ear.. Historical: - Allergies: 21:57 Cleocin; jb4 21:57 PENICILLINS; jb4 21:57 Codeine; jb4 - PMHx: 21:57 Hypothyroidism; lymes disease; Fibromyalgia; Sjogren's Syndrome; jb4 - PSHx: 21:57 back X 2; right shoulder (2); jb4 - Immunization history:: Adult Immunizations not up to date. - Infectious Disease History:: Denies. - Social history:: Smoking status: Patient denies any tobacco usage or history of. ROS: 22:24 Constitutional: Negative for fever, and chills. Cardiovascular: Negative for chest ms3 pain, and palpitations. Respiratory: Negative for shortness of breath, cough, wheezing, and pleuritic chest pain, Abdomen/GI: Negative for abdominal pain, nausea, vomiting, diarrhea, and constipation, MS/Extremity: Negative for injury and deformity, 22:24 Neuro: Positive for altered mental status, dizziness, Exam: 23:45 Constitutional: This is a well developed, well nourished patient who is awake, alert, ms3 and in no acute distress. Chest/axilla: Normal chest wall appearance and motion. Nontender with no deformity. Abdomen/GI: Soft, non-tender, with normal bowel sounds. No distension or tympany. No guarding or rebound. No evidence of tenderness throughout. Skin: Warm, dry with normal turgor. Normal color with no rashes, no lesions, and no evidence of cellulitis. MS/ Extremity: Pulses equal, no cyanosis. Neurovascular intact. Full, normal range of motion. 23:45 Cardiovascular: Rate: bradycardic, actual rate is 34 bpm, Rhythm: regular, Pulses: no pulse deficits are appreciated, Heart sounds: normal, normal S1and S2, Vital Signs: 21:54 BP 102 / 35; Pulse 36; Resp 18; Pulse Ox 98% on R/A; Weight 84 kg (M); Height 5 ft. 6 jb4 in. (R); Pain 0/10; 02/16 02:00 BP 104 / 53; Pulse 57; Resp 16; Pulse Ox 95% on R/A; ss12 08 21:54 Body Mass Index 29.89 (84.00 kg, 167.64 cm) jb4 02/15 21:54 Pain Scale: Adult jb4 Welcome Coma Score: 02/15 22:09 Eye Response: spontaneous(4). Motor Response: obeys commands(6). Verbal Response: kd4 oriented(5). Total: 15. MDM: 22:12 Medical Screening Exam initiated ms3 22:23 Differential Diagnosis: electrolyte abnormality, volume depletion, Beta Juanpablo adverse ms3 reaction. Management of patient was discussed with the following: Sand Mixer Machine: Dr Bustos- Cardiology. 23:45 Data reviewed: vital signs, nurses notes, lab test result(s), EKG, radiologic studies, ms3 and as a result, I will admit patient. Consideration of Admission/Observation Patient was admitted/placed on observation. Management of patient was discussed with the following: Hospitalist: Dr Corona. I considered the following discharge prescriptions or medication management in the emergency department Medications were administered in the Emergency Department. See MAR. Independent interpretation of the following test(s) in the Emergency Department EKG: See my EKG interpretation above X-Ray: My interpretation is Chest x-ray image reviewed by me does not reveal edema. Counseling: I had a detailed discussion with the patient and/or guardian regarding the historical points, exam findings, and any diagnostic results supporting the discharge/admit diagnosis, lab results, radiology results, the need for further work-up and treatment in the hospital. ED course: Case discussed with hospitalist and cardiology. Dr. Bustos recommends monitoring in ICU. Discussed plan for monitoring with patient or family. Patient remains normotensive while in the emergency department.. 02/15 21:56 Order name: Basic Metabolic Panel; Complete Time: 22:44 ms3 02/15 21:56 Order name: CBC with Diff; Complete Time: 22:44 ms3 02/15 21:56 Order name: LFT's; Complete Time: 22:44 ms3 02/15 21:56 Order name: Magnesium; Complete Time: 22:44 ms3 02/15 21:56 Order name: NT PRO-BNP; Complete Time: 22:44 ms3 02/15 21:56 Order name: PT-INR; Complete Time: 22:44 ms3 02/15 21:56 Order name: Troponin HS; Complete Time: 22:44 ms3 02/15 23:02 Order name: CBC with Automated Diff EDMS 02/15 23:02 Order name: CBC with Automated Diff EDMS 02/15 23:02 Order name: Comprehensive Metabolic Panel EDMS 02/15 23:02 Order name: Comprehensive Metabolic Panel EDMS 02/15 23:02 Order name: Troponin High Sensitivity EDMS 02/15 23:02 Order name: Troponin High Sensitivity EDMS 02/16 06:15 Order name: Magnesium EDMS 02/15 21:56 Order name: XRAY Chest (1 view); Complete Time: 22:44 ms3 02/15 23:02 Order name: CONS Physician Consult EDMS 02/15 21:56 Order name: Cardiac monitoring; Complete Time: 22:02 ms3 02/15 21:56 Order name: EKG - Nurse/Tech; Complete Time: 22:02 ms3 02/15 21:56 Order name: IV Saline Lock; Complete Time: 22:38 ms3 02/15 21:56 Order name: Labs collected and sent; Complete Time: 22:38 ms3 02/15 21:56 Order name: O2 Per Protocol; Complete Time: 22:38 ms3 02/15 21:56 Order name: O2 Sat Monitoring; Complete Time: 22:38 ms3 Administered Medications: 23:47 Drug: NS 0.9% IV 500 ml 500 ml IV at 1 bolus once; to be given as a bolus over 30 kd4 minutes Volume: 500 ml; Route: IV; Rate: 1 bolus; Site: right antecubital; 23:47 Not Given (Duplicate Order): atropine1 mg IVP once kd4 Disposition Summary: 02/15/25 22:49 Hospitalization Ordered Notes: Hospitalization Status: Inpatient Admission ms3 Provider: Rasheeda Corona ms3 Condition: Stable ms3 Problem: new ms3 Symptoms: are unchanged ms3 Bed/Room Type: Standard ms3 Location: Intensive Care Unit(02/16/25 07:22) bd Room Assignment: 6-(02/16/25 07:22) bd Diagnosis - Sinus Bradycarida ms3 - Dizziness ms3 Forms: - Medication Reconciliation Form ms3 - SBAR form ms3 - Leadership Thank You Letter ms3 Signatures: Dispatcher [employer] EDMS Emily Walker Cindy, RN RN Alexandre Flores RN RN jb4 Steve Downey DO DO ms3 Katherin Frank RN RN kd4 Corrections: (The following items were deleted from the chart) 21:56 21:56 Chest Single View+RAD.RAD.BRZ ordered. EDMS EDMS 23:30 22:49 Intensive Care Unit ms3 cg 23:30 22:49 ms3 cg 02/16 07:22 02/15 23:30 [facility] ER HOLD cg bd 02/16 07:22 02/15 23:30 ERHOLD- cg bd
--- NOTE | 2025-02-15 22:49 | ER ---
Nurse's Notes [facility] Name: Porfirio Headley Age: 75 yrs Sex: Female : 1950 Arrival Date: 02/15/2025 Time: 21:36 Bed 19 Private MD: Diagnosis: Sinus Bradycarida;Dizziness Presentation: 02/15 21:54 Chief complaint: Patient's son or daughter states: Her blood pressure at home was 60/44 jb4 a few hours ago and she was confused. Coronavirus screen: At this time, the client does not indicate any symptoms associated with coronavirus-19. Ebola Screen: No symptoms or risks identified at this time. Initial Sepsis Screen: Does the patient meet any 2 criteria? No. Patient's initial sepsis screen is negative. Does the patient have a suspected source of infection? No. Patient's initial sepsis screen is negative. Risk Assessment: Do you want to hurt yourself or someone else? Patient reports no desire to harm self or others. Onset of symptoms was February 15, 2025. Transition of care: patient was not received from another setting of care. 21:54 Method Of Arrival: Wheelchair jb4 21:54 Acuity: NATA 2 jb4 Historical: - Allergies: 21:57 Cleocin; jb4 21:57 PENICILLINS; jb4 21:57 Codeine; jb4 - PMHx: 21:57 Hypothyroidism; lymes disease; Fibromyalgia; Sjogren's Syndrome; jb4 - PSHx: 21:57 back X 2; right shoulder (2); jb4 - Immunization history:: Adult Immunizations not up to date. - Infectious Disease History:: Denies. - Social history:: Smoking status: Patient denies any tobacco usage or history of. Screenin:09 [facility] ED Fall Risk Assessment (Adult) History of falling in the last 3 months, kd4 including since admission No falls in past 3 months (0 pts) Confusion or Disorientation No (0 pts) Intoxicated or Sedated No (0 pts) Impaired Gait No (0 pts) Mobility Assist Device Used No (0 pt) Altered Elimination No (0 pt) Score/Fall Risk Level 0 - 2 = Low Risk Oriented to surroundings, Maintained a safe environment, Educated pt \T\ family on fall prevention, incl call for assistance when getting out of bed, Hourly rounding (assess needs \T\ fall precautionary measures) done. Abuse screen: Denies threats or abuse. Nutritional screening: No deficits noted. Tuberculosis screening: No symptoms or risk factors identified. Assessment: 22:09 General: Appears in no apparent distress. comfortable, Behavior is calm, cooperative. kd4 Pain: Denies pain. Neuro: Level of Consciousness is awake, alert, obeys commands, Oriented to person, place, time, situation, Appropriate for age Denies. Cardiovascular: Rhythm is sinus bradycardia. Respiratory: No deficits noted. 23:31 General: Telephone with read back order for 1mg atropine per Rasheeda Stokes. kd4 02/16 01:45 Reassessment: Patient appears in no apparent distress at this time. Patient and/or ss12 family updated on plan of care and expected duration. Pain level reassessed. Patient is alert, oriented x 3, equal unlabored respirations, skin warm/dry/pink. 02:00 Reassessment:. General: Appears in no apparent distress. comfortable, Behavior is calm, ss12 cooperative, quiet. Pain: Denies pain. Neuro: Level of Consciousness is awake, alert, obeys commands, Oriented to person, place, time, situation. Cardiovascular: No deficits noted. Patient's skin is warm and dry. Rhythm is sinus bradycardia. Respiratory: No deficits noted. Airway is patent Respiratory effort is even, unlabored, Respiratory pattern is regular, symmetrical. GI: No deficits noted. No signs and/or symptoms were reported involving the gastrointestinal system. : No deficits noted. No signs and/or symptoms were reported regarding the genitourinary system. EENT: No deficits noted. No signs and/or symptoms were reported regarding the EENT system. Derm: No deficits noted. Skin is intact, Skin is dry, Skin is pink, warm \T\ dry. normal. Musculoskeletal: No deficits noted. No signs and/or symptoms reported regarding the musculoskeletal system. 06:06 Reassessment: Patient appears in no apparent distress at this time. Patient and/or ss12 family updated on plan of care and expected duration. Pain level reassessed. Patient is alert, oriented x 3, equal unlabored respirations, skin warm/dry/pink. Vital Signs: 02/15 21:54 BP 102 / 35; Pulse 36; Resp 18; Pulse Ox 98% on R/A; Weight 84 kg (M); Height 5 ft. 6 jb4 in. (R); Pain 0/10; 02/16 02:00 BP 104 / 53; Pulse 57; Resp 16; Pulse Ox 95% on R/A; ss12 02/15 21:54 Body Mass Index 29.89 (84.00 kg, 167.64 cm) jb4 02/15 21:54 Pain Scale: Adult jb4 Crowder Coma Score: 02/15 22:09 Eye Response: spontaneous(4). Motor Response: obeys commands(6). Verbal Response: kd4 oriented(5). Total: 15. ED Course: 21:38 Patient arrived in ED. jj6 21:45 Steve Downey DO is Attending Physician. ms3 21:57 Triage completed. jb4 21:57 Arm band placed on right wrist. jb4 22:02 EKG done, by ED staff, reviewed by Steve Downey DO. me1 22:10 XRAY Chest (1 view) In Process Unspecified. EDMS 22:47 Rasheeda Corona MD is Hospitalizing Provider. ms3 02/16 01:54 Dago Loza, MICKIE is Primary Nurse. ss12 02:07 Patient has correct armband on for positive identification. ss12 02:07 No provider procedures requiring assistance completed. ss12 02:08 Provided Education on: plan of care. ss12 Administered Medications: 02/15 23:47 Drug: NS 0.9% IV 500 ml 500 ml IV at 1 bolus once; to be given as a bolus over 30 kd4 minutes Volume: 500 ml; Route: IV; Rate: 1 bolus; Site: right antecubital; 23:47 Not Given (Duplicate Order): atropine1 mg IVP once kd4 Medication: 22:09 VIS not applicable for this client. kd4 Outcome: 22:49 Decision to Hospitalize by Provider. ms3 02/16 08:11 Patient left the ED. ll1 Signatures: Dispatcher [employer] EDMS Alexandre Gillespie, RN RN jb4 Allyson Daly RN RN 1 Steve Downey DO DO ms3 Bessy Nickerson jj6 Kaylin Herbert RN RN hi1 Katherin Frank RN RN 4 Dago Loza RN RN ss12
--- NOTE | 2025-02-15 22:54 | P.HP ---
Certification for Inpatient With expected LOS: >2 Midnights Patient will require the following post-hospital care: None Practitioner: I am a practitioner with admitting privileges, knowledge of patient current condition, hospital course, and medical plan of care. Services: Services provided to patient in accordance with Admission requirements found in Title 42 Section 412.3 of the Code of Federal Regulations Patient History Date of Service: 02/15/25 Reason for admission: Altered mental status and weakness History of Present Illness: 75-year-old female with history of hypothyroidism, Lyme disease, Sjogren's syndrome, HTN, recent hospitalization for A-fib with RVR4 days ago evaluated by cardiology converted to normal sinus rhythm at that time, discharged home on Eliquis metoprolol and amiodarone, developed increasing weakness and fatigue. She developed confusion and lethargy today. She was brought by family to the emergency room because of new onset symptoms. On arrival in the ED she was noted with hypotension with systolic in the 70/30s as well as bradycardia with heart rate in the low 30s. EKG shows sinus bradycardia with no ST segment changes. Troponin was normal, creatinine elevated to 1.85 from previous of 1.0- 4 days ago, CBC was unremarkable, chest x-ray shows no acute infiltrate. She was started on IV fluid bolus and her mentation is slowly improving now. Her heart rate continued to range from 31-34 with persistent hypotension. She denies any diarrhea nausea vomiting. She denies any chest pain or palpitation Allergies clindamycin [From Cleocin] Allergy (Verified 02/06/25 23:30) Anaphylaxis codeine Allergy (Verified 02/06/25 23:30) Nausea/Vomiting Penicillins Allergy (Verified 02/06/25 23:30) Hives/Rash Home Medications: Buspirone HCl [Buspar*] 5 mg PO BID 07/14/24 Duloxetine [Cymbalta *] 60 mg PO DAILY 07/14/24 Hydrocodone Bit/Acetaminophen [[place] 10-325 Tablet] 1 tab PO TID PRN 07/14/24 Levocetirizine Dihydrochloride [Xyzal] 5 mg PO DAILY PRN 07/14/24 Levothyroxine Sodium 100 mcg PO DAILY 07/14/24 Ondansetron [Zofran (Odt)*] 4 mg PO DAILY 07/14/24 Perfluorohexyloctane/Pf [Miebo 100% Eye Drop] 3 drops EACH EYE BID 07/14/24 clonazePAM [Clonazepam] 0.5 mg PO DAILY 07/14/24 Docusate [Colace Cap*] 100 mg PO DAILY PRN 02/06/25 Ipratropium [Atrovent 0.03% (21MCG)/[place] Nasal*] 1 sprays NS BID 02/06/25 Tizanidine [Zanaflex*] 4 mg PO BID PRN 02/06/25 Amiodarone HCl [Cordarone*] 200 mg PO BID #60 tab 02/08/25 Buspirone HCl [Buspar*] 5 mg PO BID #60 tab 02/08/25 Levothyroxine [Synthroid*] 0.1 mg PO DAILYAC #30 tab 02/08/25 Losartan Potassium [Cozaar*] 50 mg PO DAILY #30 tab 02/08/25 Metoprolol Tartrate [Lopressor*] 25 mg PO TID #90 tab 02/08/25 - Past Medical/Surgical History Diabetic: No -: Essential hypertension. -: Fibromyalgia. -: Hypothyroidism. -: Sjogren syndrome. -: Lyme's disease. -: Anxiety disorder. -: Appendectomy. -: Rhinoplasty (deviated septum). -: Partial hysterectomy. -: Removal of benign left breast mass. -: Rotator cuff repair right. -: Bilateral carpal tunnel repair. -: Discectomy and fusion C4-C6. -: Removal 2 basal cell carcinoma right lower leg and left forearm. - Family History Sister -: Heart disease, Hypertension, Other (see notes) (Atrial fibrillation.) - Social History Smoking Status: Never smoker Smoking therapy provided: No Patient receptive to therapy: No Alcohol use: No CD- Drugs: No Caffeine use: Yes Place of Residence: Home Review of Systems General: Weakness, Malaise Neurological: Weakness, Confusion Physical Examination - Physical Exam General: Alert, In no apparent distress, Oriented x3, Cooperative HEENT: Atraumatic, Normocephalic, PERRLA Neck: 2+ carotid pulse no bruit, JVD not distended Respiratory: Clear to auscultation bilaterally, Normal air movement Cardiovascular: Normal pulses, Regular rate/rhythm, Normal S1 S2 Capillary refill: <2 Seconds Gastrointestinal: Normal bowel sounds, Soft and benign, W/out succussion splash, No tenderness Musculoskeletal: No clubbing, No swelling Integumentary: No rashes, No breakdown Neurological: Normal speech, Normal strength at 5/5 x4 extr, Normal tone, Sen sation intact, Cranial nerves 3-12 intact - Studies Laboratory Data (last 24 hrs) 02/15/25 02/15/25 02/15/25 22:04 22:04 22:04 WBC 9.00 Hgb 10.7 L Hct 31.6 L Plt Count 214 PT 17.8 H INR 1.60 Sodium 137 Potassium 4.4 BUN 35 H Creatinine 1.85 H Glucose 110 H Magnesium 2.2 Total Bilirubin 0.5 AST 48 H ALT 89 H Alkaline Phosphatase 77 Assessment and Plan - Problems (Diagnosis) (1) Acute encephalopathy Current Visit: Yes Status: Acute (2) Hypotension Current Visit: Yes Status: Acute (3) Acute kidney injury Current Visit: Yes Status: Acute (4) Personal history of atrial fibrillation Current Visit: Yes Status: Acute - Plan Impression Symptomatic bradycardia Medication induced hypotension Acute encephalopathylikely due to hypotension Acute kidney injury History of A-fib History of hypothyroidism History of Sjogren's disease Plan Symptomatic bradycardiamay be due to sick sinus syndrome Still persistent bradycardia with low heart rate 9030s Dose atropine 1 mg x 1 Urgent cardiology consult Start dopamine drip Admit to the ICU Continue telemetry monitoring Hypotensiondue to medication induced bradycardia Hold amiodarone and metoprolol Continue to hold losartan Monitor BP with improvement in heart rate Acute kidney injuryStart gentle IV fluid with LR Monitor creatinine trend Keep MAP greater than 70 Hold losartan for now History of atrial fibrillation -now with sinus bradycardia hold metoprololrecently started Will also hold amiodarone since in sinus bradycardiaas recommended by cardiology prior to discharge last hospitalization Can resume Eliquis Full code Total time spent greater than 70 minutes. Patient and spouse discussed with - Advance Directives Does patient have a Living Will: No Does patient have a Durable POA for Healthcare: Yes - Code Status/Comfort Care Code Status Assessed: Yes Code Status: Full Code Physician Review: Patient Assessed, Agree with Above Assessment and Plan Time Spent Managing Pts Care (In Minutes): 75
[2025-02-15] MEDS ORDERED: ALBUTEROL 2.5 MG/3 ML NEB SOL NEB PRN (22:55)
[2025-02-15] MEDS: NA CHLORIDE 0.9% 1,000 ML IV SCH (23:00)
[2025-02-15] MEDS: ATROPINE SULFATE 1 MG/ML INJ IV ONE (23:37)
[2025-02-15] MEDS ORDERED: NA CHLORIDE 0.9% 500 ML ONE (23:40)
[2025-02-15] MEDS ORDERED: ATROPINE SULFATE 1 MG/ML INJ ONE (23:40)
[2025-02-16] MEDS ORDERED: NA CHLORIDE 0.9% 1,000 ML ONE (00:36)
[2025-02-16] MEDS ORDERED: DOPAMINE HCL IN DEXTROSE 5 % 400 MG/250 ML KIT IV ONE (00:51)
[2025-02-16] MEDS: DOPAMINE/D5W 400 MG/250 ML BAG IV SCH (01:27)
[2025-02-16] MEDS ORDERED: MORPHINE 2 MG/ML SYR ONE (05:26)
[2025-02-16] MEDS: MORPHINE 2 MG/ML SYR IV PRN (05:30)
[2025-02-16 05:56] LABS: Absolute Lymphocytes (CBC) 1.6 K/uL (0.7-4.9); Hematocrit 34.5 % (36.0-45.0); Hemoglobin 11.7 g/dL (12.0-15.0); MCH 29.3 pg (27.0-35.0); MCHC 33.8 g/dL (32.0-36.0); MCV 86.7 fL (80-100); MPV 9.2 fL (7.6-11.3); Nucleated RBC Absolute Count 0.0 (0-0); Nucleated Red Blood Cells % 0.1 % (0-0); RBC Red Blood Cell Count 3.98 M/uL (3.86-4.86); White Blood Count 9.40 thou/uL (4.3-10.9)
[2025-02-16 06:15] LABS: ALT/SGPT 89.0 U/L (13-56); AST/SGOT 40.0 U/L (15-37); Albumin 3.8 g/dL (3.4-5.0); Albumin/Globulin Ratio 1.4 (1.1-1.8); Alkaline Phosphatase 78.0 U/L (45-117); Anion Gap 8.2 mEq/L (5.0-15.0); BUN Blood Urea Nitrogen 34.0 mg/dL (7-18); Globulin 2.8 g/dL (2.3-3.5); Glucose Level 117.0 mg/dL (74-106); Magnesium 2.3 mg/dL (1.6-2.4); Potassium 4.2 mEq/L (3.5-5.1); Troponin High Sensitivity 9.3 pg/mL (<58.9)
[2025-02-16] MEDS: LEVOTHYROXINE SOD 0.1 MG TAB PO SCH (07:30)
--- NOTE | 2025-02-16 07:31 | P.PN ---
Date of Service: 02/16/25 Subjective: Seen resting in bed. No acute complaints today. Denies fevers and chills. Physical Examination - Physical Exam General: Alert, In no apparent distress, Oriented x3, Cooperative HEENT: Atraumatic, Normocephalic, PERRLA Neck: 2+ carotid pulse no bruit, JVD not distended Respiratory: Clear to auscultation bilaterally, Normal air movement Cardiovascular: Normal pulses, Regular rate/rhythm, Normal S1 S2 Capillary refill: <2 Seconds Gastrointestinal: Normal bowel sounds, Soft and benign, W/out succussion splash, No tenderness Musculoskeletal: No clubbing, No swelling Integumentary: No rashes, No breakdown Neurological: Normal speech, Normal strength at 5/5 x4 extr, Normal tone, Sensation intact, Cranial nerves 3-12 intact - Studies Laboratory Data (last 24 hrs) 02/15/25 02/15/25 02/15/25 22:04 22:04 22:04 WBC 9.00 Hgb 10.7 L Hct 31.6 L Plt Count 214 PT 17.8 H INR 1.60 Sodium 137 Potassium 4.4 BUN 35 H Creatinine 1.85 H Glucose 110 H Magnesium 2.2 Total Bilirubin 0.5 AST 48 H ALT 89 H Alkaline Phosphatase 77 Assessment and Plan - Problems (Diagnosis) (1) Acute encephalopathy Current Visit: Yes Status: Acute (2) Hypotension Current Visit: Yes Status: Acute (3) Acute kidney injury Current Visit: Yes Status: Acute (4) Personal history of atrial fibrillation Current Visit: Yes Status: Acute Symptomatic bradycardia Medication induced hypotension Acute kidney injury History of A-fib History of hypothyroidism History of Sjogren's disease Stop amiodarone and Lopressor Symptomatic bradycardiamay be due to sick sinus syndrome Still persistent bradycardia with low heart rate 9030s Dose atropine 1 mg x 1 Cardiology following Will wean dopamine drip as per as per recommendations Continue telemetry monitoring Hypotensiondue to medication induced bradycardia Hold amiodarone and metoprolol Restart losartan if BP is high Monitor BP with improvement in heart rate Acute kidney injuryStart gentle IV fluid with LR Monitor creatinine trend Keep MAP greater than 70 Hold losartan for now History of atrial fibrillation -now with sinus bradycardia hold metoprololrecently started Will also hold amiodarone since in sinus bradycardiaas recommended by cardiology prior to discharge last hospitalization Can resume Eliquis Metabolic encephalopathy resolved Full code - Advance Directives Does patient have a Living Will: No Does patient have a Durable POA for Healthcare: Yes - Code Status/Comfort Care Code Status Assessed: Yes Code Status: Full Code Physician Review: Patient Assessed, Agree with Above Assessment and Plan Time spent on the encounter, including patient evaluation, history taking, physical exam, medical decision making, coordination of care, and documentation, was 45 minutes. Time includes direct [id number] interaction with the patient and indirect time spent reviewing records, ordering tests, and discussing the care plan.
[2025-02-16] MEDS: DULOXETINE 20 MG CAP PO SCH (09:00)
--- NOTE | 2025-02-16 09:46 | P.CNS ---
Date of Consult: 02/16/25 Chief Complaint: Altered mental status and weakness History of Present Illness: Patient with PMH of atrial fibrillation, presented with generalized weakness, fatigue, denies chest pain, no palpitations, no syncope, no breathing problems. Allergies clindamycin [From Cleocin] Allergy (Verified 02/06/25 23:30) Anaphylaxis codeine Allergy (Verified 02/06/25 23:30) Nausea/Vomiting Penicillins Allergy (Verified 02/06/25 23:30) Hives/Rash Home medications list reviewed: Yes Home Medications: Buspirone HCl [Buspar*] 5 mg PO BID 07/14/24 Duloxetine [Cymbalta *] 60 mg PO DAILY 07/14/24 Hydrocodone Bit/Acetaminophen [[place] 10-325 Tablet] 1 tab PO TID PRN 07/14/24 Levocetirizine Dihydrochloride [Xyzal] 5 mg PO DAILY PRN 07/14/24 Levothyroxine Sodium 100 mcg PO DAILY 07/14/24 Ondansetron [Zofran (Odt)*] 4 mg PO DAILY 07/14/24 Perfluorohexyloctane/Pf [Miebo 100% Eye Drop] 3 drops EACH EYE BID 07/14/24 clonazePAM [Clonazepam] 0.5 mg PO DAILY 07/14/24 Docusate [Colace Cap*] 100 mg PO DAILY PRN 02/06/25 Ipratropium [Atrovent 0.03% (21MCG)/[employer] Nasal*] 1 sprays NS BID 02/06/25 Tizanidine [Zanaflex*] 4 mg PO BID PRN 02/06/25 Amiodarone HCl [Cordarone*] 200 mg PO BID #60 tab 02/08/25 Buspirone HCl [Buspar*] 5 mg PO BID #60 tab 02/08/25 Levothyroxine [Synthroid*] 0.1 mg PO DAILYAC #30 tab 02/08/25 Losartan Potassium [Cozaar*] 50 mg PO DAILY #30 tab 02/08/25 Metoprolol Tartrate [Lopressor*] 25 mg PO TID #90 tab 02/08/25 - Past Medical/Surgical History Diabetic: No -: Essential hypertension. -: Fibromyalgia. -: Hypothyroidism. -: Sjogren syndrome. -: Lyme's disease. -: Anxiety disorder. -: Appendectomy. -: Rhinoplasty (deviated septum). -: Partial hysterectomy. -: Removal of benign left breast mass. -: Rotator cuff repair right. -: Bilateral carpal tunnel repair. -: Discectomy and fusion C4-C6. -: Removal 2 basal cell carcinoma right lower leg and left forearm. - Family History Sister Medical History: Heart disease, Hypertension, Other (see notes) (Atrial fibrillation.) - Social History Alcohol use: No CD- Drugs: No Caffeine use: Yes Place of Residence: Home Review of Systems 10-point ROS is otherwise unremarkable Physical Examination Temp Pulse Resp BP Pulse Ox 97.9 F 47 L 21 H 131/58 L 96 02/16/25 08:25 02/16/25 09:00 02/16/25 09:00 02/16/25 09:00 02/16/25 09:00 General: Alert, In no apparent distress HEENT: Atraumatic, PERRLA, Mucous membr. moist/pink, EOMI, Sclerae nonicteric Neck: Supple, 2+ carotid pulse no bruit, No LAD, Without JVD or thyroid a bnormality Respiratory: Clear to auscultation bilaterally, Normal air movement Cardiovascular: Regular rate/rhythm, Normal S1 S2 Gastrointestinal: Normal bowel sounds, No tenderness Musculoskeletal: No tenderness Integumentary: No rashes Neurological: Normal gait, Normal speech, Normal tone, Normal affect Lymphatics: No axilla or inguinal lymphadenopathy Laboratory Data (last 24 hrs) 02/15/25 02/15/25 02/15/25 22:04 22:04 22:04 WBC 9.00 Hgb 10.7 L Hct 31.6 L Plt Count 214 PT 17.8 H INR 1.60 Sodium 137 Potassium 4.4 BUN 35 H Creatinine 1.85 H Glucose 110 H Magnesium 2.2 Total Bilirubin 0.5 AST 48 H ALT 89 H Alkaline Phosphatase 77 - Problems (1) Atrial fibrillation Current Visit: Yes Status: Acute Plan: patient presented with significant sinus bradycardia, no pauses patient is on amiodarone 200 bid and lopressor 25 TID at home continue to hold above medications continue dopamine drip, start to down titrate in 2 hours, keep atropine bedside, give in case HR less than 40 and drop in BP. continue to monitor on tele (2) HTN (hypertension) Current Visit: Yes Status: Acute Plan: continue to monitor BP may resume Losartan if BP is high. (3) Acute kidney injury Current Visit: Yes Status: Acute Plan: gentle hydration and continue to monitor.
[2025-02-16] MEDS: BUSPIRONE HCL 5 MG TABLET PO SCH (10:06)
[2025-02-16] MEDS ORDERED: NA CHLORIDE 0.9% 100 ML ONE (11:42)
[2025-02-16] MEDS ORDERED: METHYLPREDNISOLONE 40 MG INJ ONE (11:42)
[2025-02-16] MEDS ORDERED: FAMOTIDINE 20 MG TAB ONE (11:42)
--- NOTE | 2025-02-16 12:28 | ECHO ---
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 CARDIAC HISTORY: CATHERIZATION: NO SURGERY: NO PROSTHETIC VALVE: NO PACEMAKER: NO MEASUREMENTS (cm) DIASTOLIC (NORMALS) SYSTOLIC (NORMALS) IVSd 1.2 (0.6-1.2) LA Diam 3.3 (1.9-4.0) LVEF 55-60% LVIDd 4.5 (3.5-5.7) LVIDs 3.0 (2.0-3.5) %FS 34% LVPWd 1.2 (0.6-1.2) Ao Diam 2.6 (2.0-3.7) 2 DIMENSIONAL ASSESSMENT: RIGHT ATRIUM: NORMAL LEFT ATRIUM: MILDLY DILATED RIGHT VENTRICLE: NORMAL LEFT VENTRICLE: NORMAL TRICUSPID VALVE: MILD TRICUSPID REGURGITATION MITRAL VALVE: MILD MITRAL REGURGITATION PULMONIC VALVE: NORMAL AORTIC VALVE: TRACE AORTIC REGURGITATION PERICARDIAL EFFUSION: NONE AORTIC ROOT: NORMAL LEFT VENTRICULAR WALL MOTION: NORMAL DOPPLER/COLOR FLOW: GRADE II DIASTOLIC DYSFUNCTION COMMENTS: 1. NORMAL LEFT VENTRICULAR SYSTOLIC FUNCTION, EJECTION FRACTION 55-60%, NORMAL WALL MOTION 2. GRADE II DIASTOLIC DYSFUNCTION 3. NORMAL FILLING PRESSURE (RIGHT ATRIAL PRESSURE 0-5 mmHg) TECHNOLOGIST: NAKUL HARRIS
[2025-02-16] MEDS: HYDROCODONE/APAP 5/325 MG TAB PO PRN (16:56)
[2025-02-16] MEDS: LOSARTAN POTASSIUM 50 MG TABLET ONE (22:35)
[2025-02-16] MEDS: DIPHENHYDRAMINE 50 MG/ML VIAL IV PRN (23:21)
[2025-02-17] MEDS: HYDRALAZINE HCL 20 MG/ML VIAL IV PRN (01:36)
[2025-02-17] MEDS: ONDANSETRON 4 MG/2 ML VIAL IV PRN (02:23)
[2025-02-17 06:45] VITALS: BMI 30.8
[2025-02-17] MEDS: LOSARTAN POTASSIUM 50 MG TABLET PO SCH (08:28)
--- NOTE | 2025-02-17 10:41 | P.PN ---
Subjective Date of Service: 02/17/25 Chief Complaint: Altered mental status and weakness Subjective: No new changes, No C/O voiced, Tolerating diet, Ambulating, Improving Review of Systems 10-point ROS is otherwise unremarkable Physical Examination - Vital Signs Temperature: 98.9 F Blood Pressure: 151/48 Pulse: 81 Respirations: 17 Pulse Ox (%): 17 - Physical Exam General: Alert, In no apparent distress HEENT: Atraumatic, PERRLA, EOMI Neck: Supple, JVD not distended Respiratory: Clear to auscultation bilaterally, Normal air movement Cardiovascular: Regular rate/rhythm, Normal S1 S2 Gastrointestinal: Normal bowel sounds, No tenderness Musculoskeletal: No tenderness Integumentary: No rashes Neurological: Normal speech, Normal tone, Normal affect Lymphatics: No axilla or inguinal lymphadenopathy - Studies Medications List Reviewed: Yes Assessment And Plan - Current Problems (Diagnosis) (1) Atrial fibrillation Current Visit: Yes Status: Acute Plan: patient presented with significant sinus bradycardia, no pauses patient is on amiodarone 200 bid and lopressor 25 TID at home Dopamine drip has been off for last 24 hours, HR in the 80s sinus re start Lopressor 25 mg po BID re start Eliquis 5 mg po BID continue to monitor on tele for one more day. (2) HTN (hypertension) Current Visit: Yes Status: Acute Plan: continue to monitor BP continue Losartan 50 mg daily add back lopressor (3) Acute kidney injury Current Visit: Yes Status: Acute Plan: gentle hydration and continue to monitor. Physician Review: Patient Assessed, Agree with Above Assessment and Plan
[2025-02-17] MEDS: METOPROLOL TAR 25 MG TAB PO SCH (10:55)
--- NOTE | 2025-02-17 17:13 | P.PN ---
Date of Service: 02/17/25 Subjective: No acute events overnight. She is resting comfortably in bed. Denies fevers and chills. Physical Examination - Physical Exam General: Alert, In no apparent distress, Oriented x3, Cooperative HEENT: Atraumatic, Normocephalic, PERRLA Neck: 2+ carotid pulse no bruit, JVD not distended Respiratory: Clear to auscultation bilaterally, Normal air movement Cardiovascular: Normal pulses, Regular rate/rhythm, Normal S1 S2 Capillary refill: <2 Seconds Gastrointestinal: Normal bowel sounds, Soft and benign, W/out succussion splash, No tenderness Musculoskeletal: No clubbing, No swelling Integumentary: No rashes, No breakdown Neurological: Normal speech, Normal strength at 5/5 x4 extr, Normal tone, Sensation intact, Cranial nerves 3-12 intact - Studies Laboratory Data (last 24 hrs) 02/15/25 02/15/25 02/15/25 22:04 22:04 22:04 WBC 9.00 Hgb 10.7 L Hct 31.6 L Plt Count 214 PT 17.8 H INR 1.60 Sodium 137 Potassium 4.4 BUN 35 H Creatinine 1.85 H Glucose 110 H Magnesium 2.2 Total Bilirubin 0.5 AST 48 H ALT 89 H Alkaline Phosphatase 77 Assessment and Plan - Problems (Diagnosis) (1) Acute encephalopathy Current Visit: Yes Status: Acute (2) Hypotension Current Visit: Yes Status: Acute (3) Acute kidney injury Current Visit: Yes Status: Acute (4) Personal history of atrial fibrillation Current Visit: Yes Status: Acute Symptomatic bradycardia Medication induced hypotension Acute kidney injury History of A-fib History of hypothyroidism History of Sjogren's disease Stop amiodarone and Lopressor No more episodes of bradycardia Restart Lopressor twice daily Dose atropine 1 mg x 1 Cardiology following and appreciate help Dopamine drip weaned off Continue telemetry monitoring for 1 more day Hypotensiondue to medication induced bradycardia Hold amiodarone and metoprolol Restart losartan if BP is high Monitor BP with improvement in heart rate Acute kidney injuryStart gentle IV fluid with LR Monitor creatinine trend Keep MAP greater than 70 Hold losartan for now History of atrial fibrillation -now with sinus bradycardia hold metoprololrecently started Will also hold amiodarone since in sinus bradycardiaas recommended by cardiology prior to discharge last hospitalization Can resume Eliquis Metabolic encephalopathy resolved Full code - Advance Directives Does patient have a Living Will: No Does patient have a Durable POA for Healthcare: Yes - Code Status/Comfort Care Code Status Assessed: Yes Code Status: Full Code Physician Review: Patient Assessed, Agree with Above Assessment and Plan Time spent on the encounter, including patient evaluation, history taking, physical exam, medical decision making, coordination of care, and documentation, was 35 minutes. Time includes direct [id number] interaction with the patient and indirect time spent reviewing records, ordering tests, and discussing the care plan.
[2025-02-17] MEDS ORDERED: ZOLPIDEM TARTRATE 5 MG TABLET PO PRN (20:11)
[2025-02-17] MEDS: TRAZODONE 50 MG TABLET PO PRN (21:38)
[2025-02-18] MEDS: ACETAMINOPHEN 325 MG TABLET PO PRN (00:43)
[2025-02-18 05:30] LABS: ALT/SGPT 57.0 U/L (13-56); AST/SGOT 26.0 U/L (15-37); Albumin 3.1 g/dL (3.4-5.0); Albumin/Globulin Ratio 1.2 (1.1-1.8); Alkaline Phosphatase 72.0 U/L (45-117); Anion Gap 4.8 mEq/L (5.0-15.0); BUN Blood Urea Nitrogen 18.0 mg/dL (7-18); Globulin 2.6 g/dL (2.3-3.5); Glucose Level 100.0 mg/dL (74-106); Magnesium 2.1 mg/dL (1.6-2.4); Potassium 4.8 mEq/L (3.5-5.1)
[2025-02-18 05:31] LABS: Absolute Lymphocytes (CBC) 1.8 K/uL (0.7-4.9); Hematocrit 31.7 % (36.0-45.0); Hemoglobin 10.6 g/dL (12.0-15.0); MCH 29.0 pg (27.0-35.0); MCHC 33.4 g/dL (32.0-36.0); MCV 86.9 fL (80-100); MPV 9.9 fL (7.6-11.3); Nucleated RBC Absolute Count 0.0 (0-0); Nucleated Red Blood Cells % 0.0 % (0-0); RBC Red Blood Cell Count 3.65 M/uL (3.86-4.86); White Blood Count 7.70 thou/uL (4.3-10.9)
--- NOTE | 2025-02-18 11:24 | P.PN ---
Subjective Date of Service: 02/18/25 Chief Complaint: Altered mental status and weakness Subjective: No new changes, No C/O voiced, Tolerating diet, Ambulating, Improving Review of Systems 10-point ROS is otherwise unremarkable Physical Examination - Vital Signs Temperature: 97.9 F Blood Pressure: 150/91 Pulse: 62 Respirations: 18 Pulse Ox (%): 99 - Physical Exam General: Alert, In no apparent distress HEENT: Atraumatic, PERRLA, EOMI Neck: Supple, JVD not distended Respiratory: Clear to auscultation bilaterally, Normal air movement Cardiovascular: Regular rate/rhythm, Normal S1 S2 Gastrointestinal: Normal bowel sounds, No tenderness Musculoskeletal: No tenderness Integumentary: No rashes Neurological: Normal speech, Normal tone, Normal affect Lymphatics: No axilla or inguinal lymphadenopathy - Studies Medications List Reviewed: Yes Assessment And Plan - Current Problems (Diagnosis) (1) Atrial fibrillation Current Visit: Yes Status: Acute Plan: patient presented with significant sinus bradycardia, no pauses patient is on amiodarone 200 bid and lopressor 25 TID at home Dopamine drip has been off for last 24 hours, HR in the 80s sinus continue Lopressor 25 mg po BID Eliquis 5 mg po BID (2) HTN (hypertension) Current Visit: Yes Status: Acute Plan: continue to monitor BP increase losartan to 100 mg daily continue lopressor 25 BID (3) Acute kidney injury Current Visit: Yes Status: Acute Plan: gentle hydration and continue to monitor. Physician Review: Patient Assessed, Agree with Above Assessment and Plan
--- NOTE | 2025-02-18 11:36 | P.HP ---
Patient History Date of Service: 02/18/25 Reason for admission: Altered mental status and weakness Allergies clindamycin [From Cleocin] Allergy (Verified 02/06/25 23:30) Anaphylaxis codeine Allergy (Verified 02/06/25 23:30) Nausea/Vomiting Penicillins Allergy (Verified 02/06/25 23:30) Hives/Rash Home Medications: Buspirone HCl [Buspar*] 5 mg PO BID 07/14/24 Duloxetine [Cymbalta *] 60 mg PO DAILY 07/14/24 Hydrocodone Bit/Acetaminophen [[place] 10-325 Tablet] 1 tab PO TID PRN 07/14/24 Levocetirizine Dihydrochloride [Xyzal] 5 mg PO BEDTIME 07/14/24 Levothyroxine Sodium 100 mcg PO DAILY 07/14/24 Ondansetron [Zofran (Odt)*] 4 mg PO DAILY PRN 07/14/24 Perfluorohexyloctane/Pf [Miebo 100% Eye Drop] 3 mg EACH EYE BID 07/14/24 clonazePAM [Clonazepam] 0.5 mg PO DAILY PRN 07/14/24 Ipratropium [Atrovent 0.03% (21MCG)/[place] Nasal*] 1 sprays NS BID 02/06/25 Tizanidine [Zanaflex*] 4 mg PO BID 02/06/25 Amiodarone HCl [Cordarone*] 200 mg PO BID #60 tab 02/08/25 Losartan Potassium [Cozaar*] 50 mg PO DAILY #30 tab 02/08/25 Metoprolol Tartrate [Lopressor*] 25 mg PO TID #90 tab 02/08/25 Apixaban [Eliquis] 1 tab PO BID 02/16/25 - Past Medical/Surgical History Has patient received pneumonia vaccine in the past: Yes Diabetic: No -: Essential hypertension. -: Fibromyalgia. -: Hypothyroidism. -: Sjogren syndrome. -: Lyme's disease. -: Anxiety disorder. -: Appendectomy. -: Rhinoplasty (deviated septum). -: Partial hysterectomy. -: Removal of benign left breast mass. -: Rotator cuff repair right. -: Bilateral carpal tunnel repair. -: Discectomy and fusion C4-C6. -: Removal 2 basal cell carcinoma right lower leg and left forearm. - Family History Sister -: Heart disease, Hypertension, Other (see notes) (Atrial fibrillation.) - Social History Smoking Status: Never smoker Alcohol use: No CD- Drugs: No Caffeine use: Yes Place of Residence: Home Physical Examination - Vital Signs Temperature: 97.9 F Blood Pressure: 150/91 Pulse: 62 Respirations: 18 Pulse Ox (%): 99 Assessment and Plan - Advance Directives Does patient have a Living Will: No Does patient have a Durable POA for Healthcare: Yes Physician Review: Patient Assessed, Agree with Above Assessment and Plan
--- NOTE | 2025-02-18 11:48 | P.DS ---
Admission Date: 02/15/25 Discharge Date: 02/18/25 Reason for Admission: Altered mental status and weakness Consultations: [employer] Procedures: None Brief History of Present Illness: 75-year-old female with history of hypothyroidism, Lyme disease, Sjogren's syndrome, HTN, recent hospitalization for A-fib with RVR4 days ago evaluated by cardiology converted to normal sinus rhythm at that time, discharged home on Eliquis metoprolol and amiodarone, developed increasing weakness and fatigue. She developed confusion and lethargy today. She was brought by family to the emergency room because of new onset symptoms. On arrival in the ED she was noted with hypotension with systolic in the 70/30s as well as bradycardia with heart rate in the low 30s. EKG shows sinus bradycardia with no ST segment changes. Troponin was normal, creatinine elevated to 1.85 from previous of 1.0- 4 days ago, CBC was unremarkable, chest x-ray shows no acute infiltrate. She was started on IV fluid bolus and her mentation is slowly improving now. Her heart rate continued to range from 31-34 with persistent hypotension. She denies any diarrhea nausea vomiting. She denies any chest pain or palpitation Hospital Course: Patient is a 75-year-old female with a past medical history significant for hypothyroidism, Lyme disease, Sjogren's syndrome, HTN, recent hospitalization for A-fib with RVR who presented with complaint of fatigue, weakness, confusion and lethargy. Patient was noted to be hypotensive and bradycardic on presentation to the ER. EKG indicated sinus bradycardia with no ST changes. Troponin was normal, creatinine was noted to be elevated, CBC was unremarkable and chest x-ray indicated no acute infiltrate. Patient was started on IV bolus hydration and patient's mental status improved. Atropine 1 mg x 1 dose was given. Patient was started on dopamine drip. [employer] was consulted. Amiodarone and Lopressor were held. Patient's clinical conditions improved over time. Patient was weaned off dopamine drip. Patient was restarted on Lopressor and losartan was increased from 50 mg to 100 mg by pizza chef. Patient vital signs remained stable. Patient was cleared for discharge by pizza chef. Patient was instructed to follow-up with her PCP and pizza chef. Patient verbalized understanding of discharge instructions and was discharged in stable condition. <Melva Wan E - Last Filed: 02/18/25 20:14> Admission Date: 02/15/25 Discharge Date: 02/18/25 <Tomasa Briceno - Last Filed: 02/18/25 21:28> Disposition: ROUTINE DISCHARGE Discharge Condition: GOOD Vital Signs/Physical Exam: Temp Pulse Resp BP Pulse Ox 97.9 F 62 18 150/91 H 99 02/18/25 11:24 02/18/25 11:24 02/18/25 11:24 02/18/25 11:24 02/18/25 11:24 General: Alert, In no apparent distress, Oriented x3, Cooperative HEENT: Atraumatic, PERRLA, EOMI Neck: Supple, JVD not distended Respiratory: Clear to auscultation bilaterally, Normal air movement Cardiovascular: Regular rate/rhythm, Normal S1 S2 Capillary refill: <2 Seconds Gastrointestinal: Normal bowel sounds, Soft and benign, Non-distended, No tenderness Musculoskeletal: No clubbing, No swelling, No tenderness Integumentary: No rashes Neurological: Normal speech, Normal tone, Normal affect Lymphatics: No axilla or inguinal lymphadenopathy Laboratory Data at Discharge: WBC 7.70 thou/uL (4.3-10.9) 02/18/25 04:41 Hgb 10.6 g/dL (12.0-15.0) L 02/18/25 04:41 Hct 31.7 % (36.0-45.0) L 02/18/25 04:41 Plt Count 185 thou/uL (152-406) 02/18/25 04:41 PT 17.8 SECONDS (10-13.0) H 02/15/25 22:04 INR 1.60 02/15/25 22:04 Sodium 143 mEq/L (136-145) 02/18/25 04:41 Potassium 4.8 mEq/L (3.5-5.1) 02/18/25 04:41 BUN 18 mg/dL (7-18) 02/18/25 04:41 Creatinine 1.09 mg/dL (0.55-1.02) H 02/18/25 04:41 Glucose 100 mg/dL (74-106) 02/18/25 04:41 Magnesium 2.1 mg/dL (1.6-2.4) 02/18/25 04:41 Total Bilirubin 0.8 mg/dL (0.2-1.0) 02/18/25 04:41 AST 26 U/L (15-37) 02/18/25 04:41 ALT 57 U/L (13-56) H 02/18/25 04:41 Alkaline Phosphatase 72 U/L (45-117) 02/18/25 04:41 <JamesghulamMelva zhang E - Last Filed: 02/18/25 20:14> Vital Signs/Physical Exam: Temp Pulse Resp BP Pulse Ox 98.7 F 65 18 150/52 H 98 02/18/25 12:00 02/18/25 12:00 02/18/25 12:00 02/18/25 12:00 02/18/25 12:00 Laboratory Data at Discharge: WBC 7.70 thou/uL (4.3-10.9) 02/18/25 04:41 Hgb 10.6 g/dL (12.0-15.0) L 02/18/25 04:41 Hct 31.7 % (36.0-45.0) L 02/18/25 04:41 Plt Count 185 thou/uL (152-406) 02/18/25 04:41 PT 17.8 SECONDS (10-13.0) H 02/15/25 22:04 INR 1.60 02/15/25 22:04 Sodium 143 mEq/L (136-145) 02/18/25 04:41 Potassium 4.8 mEq/L (3.5-5.1) 02/18/25 04:41 BUN 18 mg/dL (7-18) 02/18/25 04:41 Creatinine 1.09 mg/dL (0.55-1.02) H 02/18/25 04:41 Glucose 100 mg/dL (74-106) 02/18/25 04:41 Magnesium 2.1 mg/dL (1.6-2.4) 02/18/25 04:41 Total Bilirubin 0.8 mg/dL (0.2-1.0) 02/18/25 04:41 AST 26 U/L (15-37) 02/18/25 04:41 ALT 57 U/L (13-56) H 02/18/25 04:41 Alkaline Phosphatase 72 U/L (45-117) 02/18/25 04:41 <Tomasa Briceno - Last Filed: 02/18/25 21:28> Diet: AHA Activity: Ad estephania Physician Review: Patient Assessed, Agree with Above Assessment and Plan <KailynMelva zhang Mansoor - Last Filed: 02/18/25 20:14> Physician Review: Patient Assessed, Agree with Above Assessment and Plan <JanakTomasa - Last Filed: 02/18/25 21:28> Home Medications: Buspirone HCl [Buspar*] 5 mg PO BID 07/14/24 Duloxetine [Cymbalta *] 60 mg PO DAILY 07/14/24 Hydrocodone Bit/Acetaminophen [[place] 10-325 Tablet] 1 tab PO TID PRN 07/14/24 Levocetirizine Dihydrochloride [Xyzal] 5 mg PO BEDTIME 07/14/24 Levothyroxine Sodium 100 mcg PO DAILY 07/14/24 Ondansetron [Zofran (Odt)*] 4 mg PO DAILY PRN 07/14/24 Perfluorohexyloctane/Pf [[place] 100% Eye Drop] 3 mg EACH EYE BID 07/14/24 clonazePAM [Clonazepam] 0.5 mg PO DAILY PRN 07/14/24 Ipratropium [Atrovent 0.03% (21MCG)/[place] Nasal*] 1 sprays NS BID 02/06/25 Tizanidine [Zanaflex*] 4 mg PO BID 02/06/25 Amiodarone HCl [Cordarone*] 200 mg PO BID #60 tab 02/08/25 Apixaban [Eliquis] 1 tab PO BID 02/16/25 Acetaminophen [Tylenol*] 650 mg PO Q4H PRN tab 02/18/25 Albuterol Neb [Proventil 0.083% Neb Soln] 2.5 mg NEB TID PRN amp 02/18/25 Hydralazine [Apresoline*] 10 mg IV Q4HP PRN vial 02/18/25 Losartan Potassium [Cozaar*] 100 mg PO DAILY 30 Days #30 02/18/25 Metoprolol Tartrate [Lopressor*] 25 mg PO BID 6AM 6PM 30 Days tab 02/18/25 New Medications: Losartan Potassium [Cozaar*] 100 mg PO DAILY 30 Days #30 Metoprolol Tartrate [Lopressor*] 25 mg PO BID 6AM 6PM 30 Days tab Physician Discharge Instructions: PROBLEM: Bradycardia, hypotension GOAL: Clear understanding of disease process INSTRUCTIONS: Follow up with PCP and [employer] in 2 weeks Diet: Low sodium-Heart Healthy Activity: as tolerated Followup: Paramjit Bustos MD [ACTIVE - CAN ADMIT] - (Follow up in 2 weeks) Lyssa Galicia NP [Primary Care Provider] -
[2025-02-18 13:13] VITALS: BP 150/52; TEMP 98.7
[2025-02-18 14:18] VITALS: O2SAT 96
== END 2025-02-18 15:46 | disposition home or self-care (01) | DRG 309 ==
LOC: ER 21:36 → ERHOLD 22:55 → 3RD-ICU 02-16 07:46 → 4TH 02-17 17:05
PROVIDERS: ADMIT Internal Medicine; ATTEND Family Medicine
DX: I49.5 Sick sinus syndrome (principal); A69.20 Lyme disease, unspecified; G93.40 Encephalopathy, unspecified; N17.9 Acute kidney failure, unspecified; R57.9 Shock, unspecified; R00.1 Bradycardia, unspecified; Z79.890 Hormone replacement therapy; Z79.51 Long term (current) use of inhaled steroids; Z79.899 Other long term (current) drug therapy; Z79.891 Long term (current) use of opiate analgesic; I10 Essential (primary) hypertension; M35.00 Sjogren syndrome, unspecified; I48.91 Unspecified atrial fibrillation; Z79.01 Long term (current) use of anticoagulants; M79.7 Fibromyalgia; Z90.710 Acquired absence of both cervix and uterus; Z98.1 Arthrodesis status; F41.9 Anxiety disorder, unspecified; I95.89 Other hypotension
CPT/HCPCS: 36415; 71045; 80048; 80053; 80076; 83735; 83880; 84484; 85025; 85610; 93005; 93306; 94010; 99284; J0360; J0461; J1200; J2270; J2405; J2919; J7030; J7040

== ENCOUNTER 2025-02-24 01:32 | Emergency (ER) | payer OTHER ==
[2025-02-24] MEDS ORDERED: NA CHLORIDE 0.9% 1,000 ML ONE (02:04)
[2025-02-24] MEDS ORDERED: NA CHLORIDE 0.9% 500 ML ONE (02:04)
[2025-02-24 02:25] LABS: PT Prothrombin Time 27.6 SECONDS (10-13.0); Protime INR 2.51
[2025-02-24 02:26] LABS: Absolute Lymphocytes (CBC) 1.2 K/uL (0.7-4.9); Hematocrit 31.1 % (36.0-45.0); Hemoglobin 10.3 g/dL (12.0-15.0); MCH 28.7 pg (27.0-35.0); MCHC 33.1 g/dL (32.0-36.0); MCV 86.8 fL (80-100); MPV 9.7 fL (7.6-11.3); Nucleated RBC Absolute Count 0.0 (0-0); Nucleated Red Blood Cells % 0.1 % (0-0); RBC Red Blood Cell Count 3.58 M/uL (3.86-4.86); White Blood Count 6.70 thou/uL (4.3-10.9)
[2025-02-24 02:37] LABS: ALT/SGPT 79.0 U/L (13-56); AST/SGOT 43.0 U/L (15-37); Albumin 3.4 g/dL (3.4-5.0); Albumin/Globulin Ratio 1.3 (1.1-1.8); Alkaline Phosphatase 96.0 U/L (45-117); Anion Gap 12.4 mEq/L (5.0-15.0); BUN Blood Urea Nitrogen 30.0 mg/dL (7-18); Bilirubin Indirect, Calculated 0.2 mg/dL (0.2-0.8); Globulin 2.6 g/dL (2.3-3.5); Glucose Level 92.0 mg/dL (74-106); Magnesium 2.0 mg/dL (1.6-2.4); NT PRO-BNP 3966.0 pg/mL (<125); Potassium 4.4 mEq/L (3.5-5.1); Troponin High Sensitivity 20.1 pg/mL (<58.9)
[2025-02-24 02:46] LABS: Thyroid Stimulating Hormone 14.9 uIU/mL (0.358-3.740)
--- NOTE | 2025-02-24 03:35 | RAD REPORT ---
INDICATION: CHEST PAIN COMPARISON: Chest radiograph July 24, 2024 FINDINGS: Single frontal view of the chest was obtained. SUPPORT DEVICES: None HEART/MEDIASTINUM: Heart is enlarged. LUNGS/PLEURA: No focal consolidation. No pleural effusion or pneumothorax. OTHER: No other significant findings. IMPRESSION: Cardiomegaly without acute findings. Electronically signed by: Fco Huntley DO 02/24/2025 03:12 AM CDT RP NR Due to temporary technical issues with the PACS/Rev reporting system, reports are being airam d by the in-house radiologist without review as a courtesy to ensure prompt reporting the interpreting radiologist is fully responsible for the content of the report. Transcribed Date/Time: 02/24/2025 3:34 AM
--- NOTE | 2025-02-24 04:29 | EDPHYS ---
Physician Documentation [facility] Name: Porfirio Headley Age: 75 yrs Sex: Female : 1950 Arrival Date: 02/24/2025 Time: 01:32 Bed 20 Private MD: ED Physician Bautista Langston HPI: 02/24 01:38 This 75 yrs old Female presents to ER via Unassigned with complaints of sp4 Syncope, Low Blood Pressure. 04:29 75-year-old female with history of fibromyalgia, hypothyroidism, Lyme's disease, sp4 Sjogren's syndrome presents with a syncopal episode at home. Historical: - Allergies: 01:55 Cleocin; br2 01:55 Codeine; br2 01:55 PENICILLINS; br2 - PMHx: 01:55 Fibromyalgia; Hypothyroidism; lymes disease; Sjogren's Syndrome; br2 - Immunization history:: Adult Immunizations up to date. - Infectious Disease History:: Denies. - Social history:: Smoking status: Patient denies any tobacco usage or history of. Patient/guardian denies using alcohol, street drugs. - Family history:: not pertinent. ROS: 04:29 Constitutional: Negative for fever, chills, and weight loss, positive for generalized sp4 weakness, positive for syncopal episode at home. 04:29 All other systems are negative, Exam: 04:20 Constitutional: This is a well developed, well nourished patient who is awake, alert, sp4 and in no acute distress. Head/Face: Normocephalic, atraumatic. Eyes: Pupils equal round and reactive to light, extra-ocular motions intact. Lids and lashes normal. Conjunctiva and sclera are not injected. Cornea within normal limits. Periorbital areas with no swelling, redness, or edema. ENT: Nares patent. No nasal discharge, no septal abnormalities noted. Tympanic membranes are normal and external auditory canals are clear. Oropharynx with no redness, swelling, or masses, exudates, or evidence of obstruction, uvula midline. Mucous membranes moist. Neck: Trachea midline, no thyromegaly or masses palpated, and no cervical lymphadenopathy. Supple, full range of motion without nuchal rigidity, or vertebral point tenderness. Chest/axilla: Normal chest wall appearance and motion. Nontender with no deformity. No lesions are appreciated. Cardiovascular: Regular rate and rhythm with a normal S1 and S2. No gallops, murmurs, or rubs. No pulse deficits. Respiratory: Lungs have equal breath sounds bilaterally, clear to auscultation and percussion. No rales, rhonchi or wheezes noted. No increased work of breathing, no retractions or nasal flaring. Abdomen/GI: Soft, with normal bowel sounds. No distension or tympany. No guarding or rebound. No evidence of tenderness throughout. Back: No spinal tenderness. No costovertebral tenderness. Skin: Warm, dry with normal turgor. Normal color with no rashes, no lesions, and no evidence of cellulitis. MS/ Extremity: Pulses equal, no cyanosis. Neurovascular intact. Full, normal range of motion. Neuro: Awake and alert, GCS 15, oriented to person, place, time, and situation. Cranial nerves II-XII grossly intact. Motor strength 5/5 in all extremities. Sensory grossly intact. Psych: Awake, alert, with orientation to person, place and time. Behavior, mood, and affect are within normal limits 04:20 ECG was reviewed by the Attending Physician. EKG at 0 149 moderate sinus bradycardia rate 37, Vital Signs: 01:49 BP 122 / 36; Pulse 37; Resp 16; Pulse Ox 99% ; Weight 86.64 kg; Height 5 ft. 6 in. ; br2 Pain 0/10; 02:31 BP 141 / 60; Pulse 33; Resp 18; Pulse Ox 100% on 2 lpm NC; kd3 02:33 Temp 97.9(O); kd3 03:53 BP 167 / 62; Pulse 32; Resp 18; Pulse Ox 98% on 2 lpm NC; kd3 05:00 BP 176 / 88; Pulse 40; Resp 14; Pulse Ox 100% on 2 lpm NC; jj7 01:49 Body Mass Index 30.83 (86.64 kg, 167.64 cm) br2 01:49 Pain Scale: Adult br2 NIH Stroke Scale Scores: 04:30 NIHSS Score: 0 sp4 [place] Coma Score: 04:20 Eye Response: spontaneous(4). Motor Response: obeys commands(6). Verbal Response: sp4 oriented(5). Total: 15. MDM: 01:39 Medical Screening Exam initiated sp4 04:29 Differential Diagnosis: cardiac arrhythmia, cerebrovascular accident, GI bleed, pseudo sp4 seizure, seizure, sepsis, transient ischemic attack. Data reviewed: vital signs. 04:30 Consideration of Admission/Observation Escalation of care including sp4 admission/observation considered. Management of patient was discussed with the following: Metal Storage Worker: Discussed with principal data architect Dr. Bustos who recommends transfer for consultation with seam closer. 04:32 ED course: INDICATION: CHEST PAIN COMPARISON: Chest radiograph July 24, 2024 sp4 FINDINGS: Single frontal view of the chest was obtained. SUPPORT DEVICES: None HEART/MEDIASTINUM: Heart is enlarged. LUNGS/PLEURA: No focal consolidation. No pleural effusion or pneumothorax. OTHER: No other significant findings. IMPRESSION: Cardiomegaly without acute findings. Electronically signed by: Fco Huntley DO 02/24/2025. 02/24 01:39 Order name: Basic Metabolic Panel; Complete Time: 03:51 [facility] 02/24 01:39 Order name: CBC with Diff; Complete Time: 03:51 [facility] 02/24 01:39 Order name: LFT's; Complete Time: 03:51 [facility] 02/24 01:39 Order name: Magnesium; Complete Time: 03:51 [facility] 02/24 01:39 Order name: NT PRO-BNP; Complete Time: 03:51 [facility] 02/24 01:39 Order name: PT-INR; Complete Time: 03:51 [facility] 02/24 01:39 Order name: Troponin HS; Complete Time: 03:51 [facility] 02/24 01:59 Order name: TSH; Complete Time: 03:51 [facility] 02/24 01:59 Order name: T4 Free; Complete Time: 03:51 [facility] 02/24 01:39 Order name: XRAY Chest (1 view) 4 02/24 01:39 Order name: EKG; Complete Time: 01:40 [facility] 02/24 01:39 Order name: Cardiac monitoring; Complete Time: 01:52 [facility] 02/24 01:39 Order name: EKG - Nurse/Tech; Complete Time: 01:52 [facility] 02/24 01:39 Order name: IV Saline Lock; Complete Time: 02:16 [facility] 02/24 01:39 Order name: Labs collected and sent; Complete Time: 02:16 [facility] 02/24 01:39 Order name: O2 Per Protocol; Complete Time: 02:16 sp4 02/24 01:39 Order name: O2 Sat Monitoring; Complete Time: 02:16 sp4 02/24 04:36 Order name: Misc. Order: Hold Eliquis; Complete Time: 05:45 sp4 EC:49 Rate is 37 beats/min. Rhythm is regular, Sinus bradycardia. QRS Hunter is Normal. PA sp4 interval is normal. QRS interval is normal. QT interval is normal. No Q waves. T waves are Inverted in leads V2, V3, V4. No ST changes noted. Clinical impression: Sinus bradycardia. Interpreted by me. Reviewed by me. Administered Medications: 02:12 Drug: NS 0.9% IV 500 ml 500 ml IV at 1 bolus once; to be given as a bolus over 30 kd3 minutes Volume: 500 ml; Route: IV; Rate: 1 bolus; Site: right antecubital; 05:00 Follow up: IV Status: Completed infusion [email or web address] 02:14 Drug: NS 0.9% IV 1000 ml IV at 125 ml/hr once; to be given as a bolus over 60 minutes kd3 Route: IV; Rate: 125 ml/hr; Site: right antecubital; 06:29 Follow up: IV Status: Infusion continued upon transfer [email or web address] Disposition Summary: 02/24/25 04:29 Transfer Ordered Notes: Transfer Location: [facility] System sp4 Reason: Higher level of care sp4 Condition: Stable sp4 Problem: new sp4 Symptoms: have improved sp4 Accepting Physician: Valencia thomas MD(02/24/25 06:11) kmf Diagnosis - Symptomatic bradycardia, syncope and collapse sp4 Forms: - Medication Reconciliation Form sp4 - SBAR form sp4 NIH Stroke Scale - NIH Stroke Score Date: 02/24/2025 Time: 04:30 Total Score = 0 10. Dysarthria (speech clarity - read or repeat words) - 0(Normal) 11. Extinction and Inattention (visual/tactile/auditory/spatial/personal) - 0(No abnormality) 1a. Level of Consciousness (LOC) - 0(Alert) 1b. Level of Consciousness (LOC) (Month \T\ Age) - 0(Both) 1c. LOC Commands (Open \T\ Closes Eyes/Glass Robot Operator) - 0(Both) 2. Best Gaze (Lateral Gaze Paresis) - 0(Normal) 3. Visual Field Loss - 0(No visual loss) 4. Facial Palsy - 0(Normal) 5a. Left Arm: Motor (10-second hold) - 0(No drift) 5b. Right Arm: Motor (10-second hold) - 0(No drift) 6a. Left Leg: Motor (5-second hold - always test supine) - 0(No drift) 6b. Right Leg: Motor (5-second hold - always test supine) - 0(No drift) 7. Limb Ataxia (finger/nose \T\ heel/arrington - test with eyes open) - 0(Absent) 8. Sensory Loss (pinprick arms/legs/face) - 0(Normal) 9. Best Language: Aphasia (description/naming/reading) - 0(No aphasia) Initials: sp4 Addendum: 02/25/2025 18:23 Addendum: Patient was discussed with Dr. Bustos with Cardiology who recommended sp4 transfer to [facility] for evaluation for pacemaker.. Pet Walker reported that patient should see seam closer Dr. Burch . At this time we will transfer based on request by patient's principal data architect. . Signatures: Dispatcher [employer] Franca Palomares RN RN [id number] Bautista Langston MD MD sp4 Aniyah Donis kmf Tiera Samuels RN RN br2 Sana Stroud RN [email or web address] Corrections: (The following items were deleted from the chart) 02/24 06:11 04:29 [facility] attending MD [email or web address] [facility]
--- NOTE | 2025-02-24 04:29 | ER ---
Nurse's Notes [facility] Name: Porfirio Headley Age: 75 yrs Sex: Female : 1950 Arrival Date: 02/24/2025 Time: 01:32 Bed 20 Private MD: Diagnosis: Symptomatic bradycardia, syncope and collapse Presentation: 02/24 01:49 Chief complaint: Patient states: PT C/O DIZZINESS, WEAK AND SYNCOPAL EPISODE. PT STATES br2 HER CHECKED HER HEART RATE AND IT WAS 37. PT DENIES INJURY FROM FALL. PT STATES SHE HAS CHRONIC BACK PAIN AND TOOK A NORCO 5MG AND A MUSCLE RELAXER BEFORE BED. Coronavirus screen: Client denies travel out of the [place] in the last 14 days. Ebola Screen: Patient denies exposure to infectious person. Initial Sepsis Screen: Does the patient meet any 2 criteria? No. Patient's initial sepsis screen is negative. Does the patient have a suspected source of infection? No. Patient's initial sepsis screen is negative. Risk Assessment: Do you want to hurt yourself or someone else? Patient reports no desire to harm self or others. Onset of symptoms is unknown. 01:49 Method Of Arrival: Wheelchair br2 01:49 Acuity: NATA 3 br2 Triage Assessment: 01:55 General: Appears in no apparent distress. comfortable, Behavior is drowsy. Pain: Denies br2 pain. Neuro: Reports dizziness, weakness. Historical: - Allergies: 01:55 Cleocin; br2 01:55 Codeine; br2 01:55 PENICILLINS; br2 - PMHx: 01:55 Fibromyalgia; Hypothyroidism; lymes disease; Sjogren's Syndrome; br2 - Immunization history:: Adult Immunizations up to date. - Infectious Disease History:: Denies. - Social history:: Smoking status: Patient denies any tobacco usage or history of. Patient/guardian denies using alcohol, street drugs. - Family history:: not pertinent. Screenin:31 [facility] ED Fall Risk Assessment (Adult) History of falling in the last 3 months, kd3 including since admission No falls in past 3 months (0 pts) Confusion or Disorientation No (0 pts) Intoxicated or Sedated No (0 pts) Impaired Gait No (0 pts) Mobility Assist Device Used No (0 pt) Altered Elimination No (0 pt) Score/Fall Risk Level 0 - 2 = Low Risk Maintained a safe environment. Abuse screen: Denies threats or abuse. Denies injuries from another. Nutritional screening: No deficits noted. Tuberculosis screening: No symptoms or risk factors identified. Assessment: 02:30 General: Appears in no apparent distress. Behavior is calm, cooperative. Pain: Denies kd3 pain. Neuro: Level of Consciousness is awake, alert, obeys commands, Oriented to person, place, time, situation. Cardiovascular: Rhythm is sinus bradycardia. 05:00 Reassessment: ASSUMED CARE OF PT .PT SITTING UP IN BED. NO DISTRESS NOTED. BRADYCARDIA jj7 NOTED. ALL OTHER VS STABLE. NO NEEDS AT THIS TIME. 05:42 Reassessment: REPORT CALLED TO LUCÍA CORADO AT [facility]. jj7 06:20 Reassessment: [facility] AT BEDSIDE TO TRANSFER PT. jj7 Vital Signs: 01:49 BP 122 / 36; Pulse 37; Resp 16; Pulse Ox 99% ; Weight 86.64 kg; Height 5 ft. 6 in. ; br2 Pain 0/10; 02:31 BP 141 / 60; Pulse 33; Resp 18; Pulse Ox 100% on 2 lpm NC; kd3 02:33 Temp 97.9(O); kd3 03:53 BP 167 / 62; Pulse 32; Resp 18; Pulse Ox 98% on 2 lpm NC; kd3 05:00 BP 176 / 88; Pulse 40; Resp 14; Pulse Ox 100% on 2 lpm NC; jj7 01:49 Body Mass Index 30.83 (86.64 kg, 167.64 cm) br2 01:49 Pain Scale: Adult br2 Hayden Coma Score: 04:20 Eye Response: spontaneous(4). Motor Response: obeys commands(6). Verbal Response: sp4 oriented(5). Total: 15. NIH Stroke Scale Scores: 04:30 NIHSS Score: 0 sp4 ED Course: 01:30 Inserted saline lock: 18 gauge in right antecubital area, using aseptic technique. kd3 Blood collected. Flushed with 10 mL NS. 01:33 Patient arrived in ED. jj6 01:38 Bautista Langston MD is Attending Physician. sp4 01:42 Franca Hua, RN is Primary Nurse. kd3 01:52 EKG done, by ED staff, reviewed by Bautista Langston MD. oe 01:55 Triage completed. br2 01:55 Arm band placed on right wrist. br2 02:15 XRAY Chest (1 view) In Process Unspecified. EDMS 02:16 Basic Metabolic Panel Sent. kd3 02:16 CBC with Diff Sent. kd3 02:16 LFT's Sent. kd3 02:16 Magnesium Sent. kd3 02:16 NT PRO-BNP Sent. kd3 02:16 TSH Sent. kd3 02:16 T4 Free Sent. kd3 02:32 Patient has correct armband on for positive identification. Provided Education on: kd3 heart rate . 04:22 initiated transfer with Eloisa \T\ FRANK orellana. kmf 05:27 pt was accepted as a er eval, accepting Rodney Delong \T\ 0512. Accepting admin Marta Amin [facility] \T\[id number]. Number for nurse to nurse report [phone]. [facility] to transfer pt. Administered Medications: 02:12 Drug: NS 0.9% IV 500 ml 500 ml IV at 1 bolus once; to be given as a bolus over 30 kd3 minutes Volume: 500 ml; Route: IV; Rate: 1 bolus; Site: right antecubital; 05:00 Follow up: IV Status: Completed infusion jj7 02:14 Drug: NS 0.9% IV 1000 ml IV at 125 ml/hr once; to be given as a bolus over 60 minutes kd3 Route: IV; Rate: 125 ml/hr; Site: right antecubital; 06:29 Follow up: IV Status: Infusion continued upon transfer jj7 Medication: 02:31 VIS not applicable for this client. kd3 Outcome: 04:29 ER care complete, transfer ordered by MD. garcía 06:20 Transferred by ground EMS [facility]. jj7 06:20 Condition: good 06:21 Patient left the ED. jj7 NIH Stroke Scale - NIH Stroke Score Date: 02/24/2025 Time: 04:30 Total Score = 0 10. Dysarthria (speech clarity - read or repeat words) - 0(Normal) 11. Extinction and Inattention (visual/tactile/auditory/spatial/personal) - 0(No abnormality) 1a. Level of Consciousness (LOC) - 0(Alert) 1b. Level of Consciousness (LOC) (Month \T\ Age) - 0(Both) 1c. LOC Commands (Open \T\ Closes Eyes/Wire Tester) - 0(Both) 2. Best Gaze (Lateral Gaze Paresis) - 0(Normal) 3. Visual Field Loss - 0(No visual loss) 4. Facial Palsy - 0(Normal) 5a. Left Arm: Motor (10-second hold) - 0(No drift) 5b. Right Arm: Motor (10-second hold) - 0(No drift) 6a. Left Leg: Motor (5-second hold - always test supine) - 0(No drift) 6b. Right Leg: Motor (5-second hold - always test supine) - 0(No drift) 7. Limb Ataxia (finger/nose \T\ heel/arrington - test with eyes open) - 0(Absent) 8. Sensory Loss (pinprick arms/legs/face) - 0(Normal) 9. Best Language: Aphasia (description/naming/reading) - 0(No aphasia) Initials: sp4 Signatures: Dispatcher [employer] EDMS Bao Fuentes Jennifer jj6 Franca Hua RN RN kd3 Sana Stroud RN RN jj7 Bautista Langston MD MD sp4 Aniyah Donis [facility] Tiera Samuels RN RN br2 Corrections: (The following items were deleted from the chart) 03:53 03:53 BP 167 / 62; Pulse 32bpm; Resp 18bpm; Pulse Ox 98% RA; kd3 kd3 06:21 06:11 Patient left the ED. [facility] jj7
[2025-02-24 13:27] VITALS: TEMP 97.9
[2025-02-24 13:31] VITALS: BP 176/88; O2SAT 100
== END 2025-02-24 06:11 | disposition short-term general hospital (02) ==
LOC: ER 01:32
DX: R00.1 Bradycardia, unspecified (principal)
CPT/HCPCS: 96361; 93005; 85025; 80048; 36415; 83735; 85610; 80076; 84443; 84484; 84439; 83880; 71045; 96360; 99285; J7040; J7030